=== PATIENT | male | born 1950 | race Caucasian/White ===

== ENCOUNTER → 2020-01-23 14:12 | Outpatient (CLI) | payer OTHER, SELFPAY ==
[2020-01-23 17:00] LABS: Absolute Lymphocyte Count 2.52 X10^3/uL (0.83-4.51); Absolute Neutrophil Count 5.1 X10^3/uL (2.0-7.7); Basophil# 0.05 X10^3/uL; Basophil% 0.6 % (0-1); Eosinophil# 0.18 X10^3/uL; Eosinophils% 2.1 % (0-5); Hematocrit 46.3 % (40-54); Hemoglobin 15.4 g/dL (13.0-16.5); Lymphocyte # 2.52 X10^3/ul (4.0); Mean Corp Hgb Conc 33.3 g/dL (32-36); Mean Corpuscular Hgb 29.2 pg (27.0-32.0); Mean Corpuscular Volume 87.9 fL (80-94); Mean Platelet Vol. 10.1 fl (6.2-12.0); Monocyte# 0.52 X10^3/uL; Monocyte% 6.2 % (0-10); NRBC Flagged by Analyzer 0 % (0-5); Neutrophil # 5.07 X10^3/uL (2.7-7.7); Neutrophil % 60.5 % (47-70); Platelet Count 265 K/mm3 (150-450); RBC Distribution Width CV 12.8 % (11.6-14.6); RBC Distribution Width SD 40.7 fl (35.1-43.9); Red Blood Count 5.27 M/mm3 (4.6-6.2); White Blood Count 8.4 K/mm3 (4.4-11.0)
[2020-01-23 17:12] LABS: Protein, Urine (Random) 7.9 mg/dL (<11.9)
[2020-01-23 17:14] LABS: ALB/GLOB Ratio 1.1 RATIO (0.9-2.4); AST(SGOT) 22 U/L (15-37); Alanine Aminotransfer ALT/SGPT 46 U/L (16-61); Alkaline Phosphatase 57 U/L (45-117); Anion Gap 8 (5-15); BUN 23 mg/dL (7-18); BUN/Creat Ratio 12.8 RATIO (10-20); Calcium,Total 9.5 mg/dL (8.5-10.1); Chloride 104 mmol/L (98-107); EST Glomerular Filtration Rate 40 mL/min (>60); Est Glom Filt Rate - Afr Amer 48 mL/min (>60); Globulin 3.5 g/dL (2.2-4.2); Glucose 240 mg/dL (74-106); Potassium 3.5 mmol/L (3.5-5.1); Protein, Total 7.5 g/dL (6.4-8.2); Sodium Level 137 mmol/L (136-145)
== END ==
PROVIDERS: Visit Provider Family Medicine
DX: E11.9 Type 2 diabetes mellitus without complications (principal); I10 Essential (primary) hypertension; E78.5 Hyperlipidemia, unspecified
CPT/HCPCS: 36415; 80053; 82570; 84156; 85025

== ENCOUNTER → 2020-02-03 13:17 | Outpatient (CLI) | payer OTHER, SELFPAY ==
[2020-02-03 15:57] LABS: Anion Gap 8 (5-15); BUN 18 mg/dL (7-18); BUN/Creat Ratio 11.8 RATIO (10-20); Calcium,Total 9.2 mg/dL (8.5-10.1); Chloride 105 mmol/L (98-107); Creatinine, Serum 1.52 mg/dL (0.70-1.30); EST Glomerular Filtration Rate 49 mL/min (>60); Est Glom Filt Rate - Afr Amer 59 mL/min (>60); Glucose 244 mg/dL (74-106); Potassium 3.9 mmol/L (3.5-5.1); Sodium Level 139 mmol/L (136-145)
== END ==
PROVIDERS: Visit Provider Family Medicine
DX: I10 Essential (primary) hypertension (principal); Z90.5 Acquired absence of kidney
CPT/HCPCS: 36415; 80048

== ENCOUNTER → 2020-04-22 10:16 | Outpatient (CLI) | payer OTHER, SELFPAY ==
[2020-04-22 10:16] VITALS: BMI 41.2
[2020-04-22 12:52] LABS: Anion Gap 9 (5-15); BUN 23 mg/dL (7-18); BUN/Creat Ratio 16.3 RATIO (10-20); Calcium,Total 9.5 mg/dL (8.5-10.1); Chloride 103 mmol/L (98-107); Creatinine, Serum 1.41 mg/dL (0.70-1.30); EST Glomerular Filtration Rate 53 mL/min (>60); Est Glom Filt Rate - Afr Amer 64 mL/min (>60); Glucose 217 mg/dL (74-106); Potassium 3.7 mmol/L (3.5-5.1); Sodium Level 138 mmol/L (136-145)
== END ==
PROVIDERS: PCP Family Medicine; Visit Provider Family Medicine
DX: I10 Essential (primary) hypertension (principal); Z90.5 Acquired absence of kidney
CPT/HCPCS: 36415; 80048

== ENCOUNTER → 2021-12-10 | Outpatient (CLI) | payer OTHER, SELFPAY ==
[2021-12-10 12:10] LABS: Absolute Lymphocyte Count 2.68 X10^3/uL (0.83-4.51); Absolute Neutrophil Count 6.2 X10^3/uL (2.0-7.7); Basophil# 0.05 X10^3/uL; Basophil% 0.5 % (0-1); Eosinophil# 0.29 X10^3/uL; Hematocrit 42.1 % (40-54); Hemoglobin 14.6 g/dL (13.0-16.5); Lymphocyte # 2.68 X10^3/ul (0.83-4.51); Lymphocyte % 27.5 % (19-41); Mean Corp Hgb Conc 34.7 g/dL (32-36); Mean Corpuscular Hgb 29.9 pg (27.0-32.0); Mean Corpuscular Volume 86.1 fL (80-94); Mean Platelet Vol. 9.8 fl (6.2-12.0); Monocyte# 0.49 X10^3/uL; NRBC Flagged by Analyzer 0 % (0-5); Neutrophil # 6.22 X10^3/uL (2.7-7.7); Neutrophil % 63.7 % (47-70); Platelet Count 253 K/mm3 (150-450); RBC Distribution Width CV 12.7 % (11.6-14.6); RBC Distribution Width SD 39.4 fl (35.1-43.9); Red Blood Count 4.89 M/mm3 (4.6-6.2); White Blood Count 9.8 K/mm3 (4.4-11.0)
[2021-12-10 12:20] LABS: ALB/GLOB Ratio 1.1 RATIO (0.9-2.4); AST(SGOT) 24 U/L (15-37); Alanine Aminotransfer ALT/SGPT 35 U/L (16-61); Albumin, Serum 3.9 g/dL (3.2-5.0); Alkaline Phosphatase 56 U/L (45-117); Anion Gap 8 (5-15); BUN 19 mg/dL (7-18); BUN/Creat Ratio 14.6 RATIO (10-20); Calcium,Total 9.6 mg/dL (8.5-10.1); Chloride 101 mmol/L (98-107); Cholesterol 154 mg/dL (200); EST Glomerular Filtration Rate 58 mL/min (>60); Est Glom Filt Rate - Afr Amer 70 mL/min (>60); Globulin 3.5 g/dL (2.2-4.2); Glucose 134 mg/dL (74-106); High Density Lipoprotein 40 mg/dL; Potassium 3.6 mmol/L (3.5-5.1); Protein, Total 7.4 g/dL (6.4-8.2); Sodium Level 137 mmol/L (136-145); Triglycerides 279 mg/dL; Very Low Density Lipoprotein 56 mg/dL (5-40)
== END | disposition home or self-care (01) ==
LOC: BFHLAB 10:04
PROVIDERS: PCP Family Medicine; Visit Provider Family Medicine
DX: E11.9 Type 2 diabetes mellitus without complications (principal); I10 Essential (primary) hypertension; E78.5 Hyperlipidemia, unspecified
CPT/HCPCS: 36415; 80053; 80061; 85025

== ENCOUNTER → 2022-06-09 | Outpatient (CLI) | payer OTHER, SELFPAY ==
[2022-06-09 15:19] LABS: Absolute Lymphocyte Count 2.43 X10^3/uL (0.83-4.51); Absolute Neutrophil Count 3.9 X10^3/uL (2.0-7.7); Basophil# 0.06 X10^3/uL; Basophil% 0.8 % (0-1); Eosinophils% 2.8 % (0-5); Hematocrit 39.8 % (40-54); Lymphocyte # 2.43 X10^3/ul (0.83-4.51); Lymphocyte % 34.4 % (19-41); Mean Corp Hgb Conc 32.7 g/dL (32-36); Mean Corpuscular Hgb 29.5 pg (27.0-32.0); Mean Corpuscular Volume 90.5 fL (80-94); Mean Platelet Vol. 10.2 fl (6.2-12.0); Monocyte# 0.48 X10^3/uL; Monocyte% 6.8 % (0-10); NRBC Flagged by Analyzer 0 % (0-5); Neutrophil # 3.87 X10^3/uL (2.7-7.7); Neutrophil % 54.8 % (47-70); Platelet Count 245 K/mm3 (150-450); RBC Distribution Width CV 13.1 % (11.6-14.6); RBC Distribution Width SD 43.3 fl (35.1-43.9); White Blood Count 7.1 K/mm3 (4.4-11.0)
[2022-06-09 15:39] LABS: ALB/GLOB Ratio 0.9 RATIO (0.9-2.4); AST(SGOT) 31 U/L (15-37); Alanine Aminotransfer ALT/SGPT 16 U/L (16-61); Albumin, Serum 3.8 g/dL (3.2-5.0); Alkaline Phosphatase 46 U/L (45-117); Anion Gap 6 (5-15); BUN 20 mg/dL (7-18); BUN/Creat Ratio 14.4 RATIO (10-20); Calcium,Total 9.1 mg/dL (8.5-10.1); Chloride 104 mmol/L (98-107); Cholesterol 152 mg/dL (200); Creatinine, Serum 1.39 mg/dL (0.70-1.30); EST Glomerular Filtration Rate 54 mL/min (>60); Est Glom Filt Rate - Afr Amer 65 mL/min (>60); Globulin 4.1 g/dL (2.2-4.2); Glucose 152 mg/dL (74-106); High Density Lipoprotein 38 mg/dL; Potassium 3.5 mmol/L (3.5-5.1); Protein, Total 7.9 g/dL (6.4-8.2); Sodium Level 138 mmol/L (136-145); Triglycerides 222 mg/dL; Very Low Density Lipoprotein 44 mg/dL (5-40)
[2022-06-09 15:52] LABS: Microalbumin,Random Urine 75.8 mg/L (NO RANGE EST.); Microalbumin:Creatinine Ratio 39.9 mg/g CRE (<30 mg/g CRE)
== END | disposition home or self-care (01) ==
LOC: BFHLAB 11:42
PROVIDERS: PCP Family Medicine; Referring Provider Family Medicine; Visit Provider Family Medicine
DX: Z00.00 Encounter for general adult medical examination without abnormal findings (principal); E11.9 Type 2 diabetes mellitus without complications; I10 Essential (primary) hypertension
CPT/HCPCS: 36415; 80053; 80061; 82043; 82570; 85025

== ENCOUNTER 2022-07-25 08:20 | Emergency (ER) | payer MEDICARE, SELFPAY ==
[2022-07-25] VITALS (7 sets, daily range): BP systolic 147–189; BP diastolic 67–101; PULSE 60–82; RESP 14–18; TEMP 36.2; O2SAT 94–98; BMI 38.0
--- NOTE | 2022-07-25 08:33 | RAD_ITS ---
STUDY: X-RAY CHEST REASON FOR EXAM: Male, 71 years old. Increasing shortness of breath. Chest heaviness. TECHNIQUE: Single AP portable view of the chest. COMPARISON: None. FINDINGS: EKG electrodes are seen. The lungs are clear and expanded. Scattered calcified granulomas. There is no demonstrated pleural abnormality. There is mild cardiac enlargement. Normal mediastinum and wilberto. Normal visualized pulmonary arteries. There is atherosclerotic calcification of the aortic arch with tortuosity. There are diffuse degenerative changes of the visualized thoracic spine. Normal visualized ribs, clavicles, and shoulders. There is no demonstrated abnormality of the visualized soft tissue structures of the upper abdomen. RAD/Chest 1 View (Portable) IMPRESSION: Mild cardiomegaly. The lungs are clear. Electronically Signed: Zeus Raymond MD at 9:26 EDT ,
--- NOTE | 2022-07-25 08:33 | EKG12_ITS ---
Test Reason : SOB Blood Pressure : / mmHG Vent. Rate : 076 BPM Atrial Rate : 076 BPM P-R Int : 182 ms QRS Dur : 100 ms QT Int : 422 ms P-R-T Axes : 048 -18 053 degrees QTc Int : 474 ms Normal sinus rhythm Inferior infarct , age undetermined Abnormal ECG Confirmed by SOLOMON NG, NAYAN ([id number]), editor greeting card OTILIA AUGUSTE ([id number]) on 07/27/2022 11:36:32 AM Referred By: Confirmed By:NAYAN CARBAJAL MD
--- NOTE | 2022-07-25 08:35 | EDS_ITS ---
HPI History of Present Illness Chief Complaint: Shortness of Breath Narrative Narrative: 71-year-old male who denies significant past medical history such as asthma, COPD, or CHF presents with increasing dyspnea on exertion since Monday of last week. He states that he was working outside, and had to come in because he felt shortness of breath and chest pressure as if someone was laying a hand on his chest. He denies any recent fever or chills. No nausea or vomiting. No diaphoresis. He did have to go outside and only work for 15 minutes, then come in and rest. His states that this is gotten progressively worse since last week. He denies any weight gain or leg swelling. He states that he has past medical history of hypertension, but does not take blood thinners. No DVT or PE risk factors. He feels more short of breath along with chest pressure and tightness. [facility] Medical History Chronic neck and back pain Congenital solitary kidney Diabetes Diarrhea GERD (gastroesophageal reflux disease) HTN (hypertension) Hyperlipidemia SOB (shortness of breath) Home Medications amlodipine 5 mg tablet 5 mg PO DAILY 03/30/20 [History Last Taken Unknown] atorvastatin 20 mg tablet 20 mg PO DAILY 03/30/20 [History Last Taken Unknown] glimepiride 4 mg tablet 4 mg PO BID 03/30/20 [History Last Taken Unknown] hydrochlorothiazide 25 mg tablet 25 mg PO DAILY 03/30/20 [History Last Taken Unknown] losartan 100 mg tablet 100 mg PO DAILY 03/30/20 [History Last Taken Unknown] metformin 500 mg tablet,extended release 24 hr 1,000 mg PO BID 03/30/20 [History Last Taken Unknown] potassium citrate 10 mEq (1,080 mg) tablet,extended release PO 03/30/20 [History Last Taken Unknown] sertraline 50 mg tablet 50 mg PO DAILY 03/30/20 [History Last Taken Unknown] aspirin 81 mg tablet,delayed release (Adult Low Dose Aspirin) 81 mg PO DAILY 06/24/22 [History Last Taken Unknown] carbidopa 50 mg-levodopa 200 mg-entacapone 200 mg tablet 1 tab PO BID 06/24/22 [History Last Taken Unknown] insulin glargine 100 unit/mL (3 mL) subcutaneous pen (Lantus Solostar U-100 Insulin) 42 unit subcut QPM 06/24/22 [History Last Taken Unknown] omeprazole magnesium 20 mg tablet,delayed release (Prilosec OTC) 20 mg PO DAILY 07/25/22 [History Last Taken Unknown] Allergy/AdvReac Type Severity Reaction Status Date / Time No Known Allergies Allergy Verified 07/25/22 08:23 Family History Other Heart disease Surgical History History of colonoscopy Social History Smoking Status: Never smoker alcohol intake: never ROS ROS ED ROS Narrative Constitutional: No fever, no chills. HEENT: No sore throat. No neck pain. No loss of vision. No rhinorrhea. Cardiovascular: Positive chest pressure/nonradiating chest pain. No palpitations. No pedal edema. Respiratory: No cough, positive dyspnea on exertion and shortness of breath. Abdominal: No abdominal pain. No nausea. No vomiting. Genitourinary: No dysuria. No hematuria. Musculoskeletal: No myalgias. No arthralgias. Neurologic: No headaches. No dizziness. No lightheadedness. Skin: No rash. No change in color. Psychiatric: No depression. No anxiety. EXAM Physical Exam Narrative Exam Narrative: Afebrile. Vital signs noted. HEENT: Normocephalic. Atraumatic. PERRL, EOMI. Neck soft and supple. No point tenderness or step off. Cardiovascular: Regular rate and rhythm. No murmurs, rubs, or gallops appreciated. Respiratory: No tachypnea. Lungs clear to auscultation bilaterally. Minich breath sounds bilateral bases. Moving a good amount of air. Speaking in full sentences. Gastrointestinal: Abdomen soft, nontender, with normoactive bowel sounds. No rebound or guarding. Neurological: Awake. Alert. Nonfocal, nonlateralizing. Skin: No rash. Normal color. No pallor. Musculoskeletal: No pedal edema. Full range of motion extremities. Const Vital Signs: 07/25/22 08:21 07/25/22 08:20 07/25/22 08:34 Temperature 97.1 F L Temperature Source Temporal Pulse Rate 82 79 Respiratory Rate 18 14 Respiratory Effort Normal Non-Labored Respiratory Depth Normal Respiratory Pattern Normal Blood Pressure 189/101 H 188/101 H Blood Pressure Mean 130 130 Pulse Ox 97 98 Oxygen Delivery Method Room Air Room Air Room Air 07/25/22 08:44 07/25/22 11:10 Temperature Temperature Source Pulse Rate 73 60 Respiratory Rate 18 17 Respiratory Effort Respiratory Depth Respiratory Pattern Normal Blood Pressure 163/76 H Blood Pressure Mean 105 Pulse Ox 94 Oxygen Delivery Method Room Air MDM MDM MDM Narrative Medical decision making narrative: Comprehensive work-up was pursued. In the differential diagnosis is pneumothorax versus pneumonia versus COPD exacerbation that is undiagnosed, bronchitis, I have low suspicion for pulmonary embolism. He has elevated blood pressure at 188/101 but is come down on the systolic side to 150 without intervention initially. Pulse ox is 98% on room air without oxygen requirement. EKG will be obtained to rule out ischemia. EKG was obtained and interpreted by myself independently which shows normal sinus rhythm at 76 bpm without ectopy or acute ST changes. No STEMI. I reviewed his laboratory work and he has a normal white count of 7.5, hemoglobin stable at 12.8, hematocrit 37.3, platelet count normal at 198. Electrolyte panel shows potassium slightly low at 3.3 which was replaced orally with 40 mEq. BUN slightly elevated 19 with creatinine 1.30. Glucose is appropriately elevated at 144 with a normal anion gap of 6. Initial high-sensitivity troponin is 8 with repeat also being 8 for a delta of 0. Chest x-ray interpreted by myself independently shows no evidence of acute pneumonia or pneumothorax. He is not hypoxic on examination. BNP was also obtained and reviewed and is normal at 33. After aerosolized treatment, he states he feels the same. I do not feel that he needs an albuterol inhaler. He was ambulated here in the emergency department and reportedly has a normal pulse ox. He feels well enough to go home. I am unsure as to the cause of his reported chest pressure and dyspnea on exertion, but it may be air quality index and undiagnosed COPD. At this point in time, he and his would like to be discharged. I feel he can be discharged safely home with follow-up. Return instructions were reviewed. I do not feel he requires observation or admission at this time. Disposition is discharged home in stable condition. History & Record Review Discussion w/independent historian: Patient and Significant other Additional record(s) reviewed:: Prior ED visit Lab Data Attestation: I reviewed the patient's lab results. Labs: Laboratory Results - last 24 hr 07/25/22 07/25/22 07/25/22 08:40 08:40 08:40 WBC 7.5 RBC 4.24 L Hgb 12.8 L Hct 37.3 L MCV 88.0 MCH 30.2 MCHC 34.3 RDW Std Deviation 40.2 RDW Coeff of Bayron 12.7 Plt Count 198 MPV 9.3 Immature Gran % (Auto) 0.300 Neut % (Auto) 61.8 Lymph % (Auto) 29.2 [place] % (Auto) 6.4 Eos % (Auto) 1.9 Baso % (Auto) 0.4 Absolute Neuts (auto) 4.6 Absolute Lymphs (auto) 2.19 Nucleated RBC % 0 Sodium 137 Potassium 3.3 L Chloride 102 Carbon Dioxide 29.0 Anion Gap 6 BUN 19 H Creatinine 1.30 Estim Creat Clear Calc 54.59 Est GFR (MDRD) Af Amer 70 Est GFR (MDRD) Non-Af 58 L BUN/Creatinine Ratio 14.6 Glucose 144 H Calcium 9.0 Troponin I High Sens 8 B-Natriuretic Peptide 33.0 07/25/22 10:50 WBC RBC Hgb Hct MCV MCH MCHC RDW Std Deviation RDW Coeff of Bayron Plt Count MPV Immature Gran % (Auto) Neut % (Auto) Lymph % (Auto) [place] % (Auto) Eos % (Auto) Baso % (Auto) Absolute Neuts (auto) Absolute Lymphs (auto) Nucleated RBC % Sodium Potassium Chloride Carbon Dioxide Anion Gap BUN Creatinine Estim Creat Clear Calc Est GFR (MDRD) Af Amer Est GFR (MDRD) Non-Af BUN/Creatinine Ratio Glucose Calcium Troponin I High Sens 8 B-Natriuretic Peptide Radiography Diagnostic Testing: Clinical Impression(s) from Imaging Studies Chest X-Ray 07/25/22 08:33 IMPRESSION: Mild cardiomegaly. The lungs are clear. Electronically Signed: Zeus Raymond MD at 9:26 EDT , Discharge Plan Triage Chief Complaint: Shortness of Breath ED Provider: Jorge Ruano Dx/Rx/DC Orders Clinical Impression: NAYLOR (dyspnea on exertion), Chest pressure, Hypertension Instructions: ED Chest Pain, Uncertain Cause, ED Dyspnea, ED High Blood Pressure Hypertension Prescriptions: No Action glimepiride 4 mg tablet 4 mg PO BID atorvastatin 20 mg tablet 20 mg PO DAILY metformin 500 mg tablet extended release 24 hr 1,000 mg PO BID sertraline 50 mg tablet 50 mg PO DAILY potassium citrate 10 mEq (1,080 mg) tablet extended release PO losartan 100 mg tablet 100 mg PO DAILY hydrochlorothiazide 25 mg tablet 25 mg PO DAILY amlodipine 5 mg tablet 5 mg PO DAILY aspirin [Adult Low Dose Aspirin] 81 mg tablet,delayed release (DR/EC) 81 mg PO DAILY [id number] 50-200-200 mg tablet 1 tab PO BID insulin glargine [Lantus Solostar U-100 Insulin] 100 unit/mL (3 mL) insulin pen 42 unit subcut QPM omeprazole magnesium [Prilosec OTC] 20 mg Tablet,Delayed Release (Dr/Ec) 20 mg PO DAILY Primary Care Provider: Brianna Israel Referrals: Brianna Israel MD [Primary Care Provider] - 3-5 Days Disposition Disposition: Home, Self Care
--- NOTE | 2022-07-25 08:43 | NURSING ---
NO OLD EKGS
[2022-07-25] MEDS: Ipratropium/Albuterol Sulfate 3 ML AMPUL.NEB INHALATION (08:44)
[2022-07-25 08:58] LABS: Absolute Lymphocyte Count 2.19 X10^3/uL (0.83-4.51); Absolute Neutrophil Count 4.6 X10^3/uL (2.0-7.7); Basophil# 0.03 X10^3/uL; Basophil% 0.4 % (0-1); Eosinophil# 0.14 X10^3/uL; Eosinophils% 1.9 % (0-5); Hematocrit 37.3 % (40-54); Hemoglobin 12.8 g/dL (13.0-16.5); Lymphocyte # 2.19 X10^3/ul (0.83-4.51); Lymphocyte % 29.2 % (19-41); Mean Corp Hgb Conc 34.3 g/dL (32-36); Mean Corpuscular Hgb 30.2 pg (27.0-32.0); Mean Platelet Vol. 9.3 fl (6.2-12.0); Monocyte# 0.48 X10^3/uL; Monocyte% 6.4 % (0-10); NRBC Flagged by Analyzer 0 % (0-5); Neutrophil # 4.63 X10^3/uL (2.7-7.7); Neutrophil % 61.8 % (47-70); Platelet Count 198 K/mm3 (150-450); RBC Distribution Width CV 12.7 % (11.6-14.6); RBC Distribution Width SD 40.2 fl (35.1-43.9); Red Blood Count 4.24 M/mm3 (4.6-6.2); White Blood Count 7.5 K/mm3 (4.4-11.0)
[2022-07-25 09:16] LABS: Anion Gap 6 (5-15); BUN 19 mg/dL (7-18); BUN/Creat Ratio 14.6 RATIO (10-20); Chloride 102 mmol/L (98-107); EST Glomerular Filtration Rate 58 mL/min (>60); Est Glom Filt Rate - Afr Amer 70 mL/min (>60); Estimated Creatinine Clearance 54.59 ml/min; Glucose 144 mg/dL (74-106); Potassium 3.3 mmol/L (3.5-5.1); Sodium Level 137 mmol/L (136-145); Troponin-I HS (w/2H Reflex) 8 pg/mL (3.0-78.0)
[2022-07-25] MEDS: Potassium Chloride Oral Tablet 20 MEQ 40 MEQ PO (09:36)
[2022-07-25 10:55] LABS: Reflex Troponin-HS? (from REC) Y
[2022-07-25 11:23] LABS: Troponin-I HS 8 pg/mL (3.0-78.0)
== END 2022-07-25 12:56 | disposition home or self-care (01) ==
PROVIDERS: Emergency Provider Emergency Medicine; PCP Family Medicine; Visit Provider Emergency Medicine
DX: R06.09 Other forms of dyspnea (principal); E11.9 Type 2 diabetes mellitus without complications; Z79.4 Long term (current) use of insulin; R07.89 Other chest pain; E87.6 Hypokalemia; I10 Essential (primary) hypertension; E78.5 Hyperlipidemia, unspecified; G89.29 Other chronic pain; Z79.82 Long term (current) use of aspirin; Z79.84 Long term (current) use of oral hypoglycemic drugs; Z79.899 Other long term (current) drug therapy
CPT/HCPCS: 71045; 80048; 83880; 84484; 85025; 93005; 94640; 99285

== ENCOUNTER 2022-08-17 10:16 | Day surgery (SDC) | payer MEDICARE, SELFPAY ==
[2022-08-17] VITALS (9 sets, daily range): BP systolic 128–176; BP diastolic 79–101; PULSE 76–91; RESP 14–16; TEMP 36.3–36.6; O2SAT 93–97; BMI 37.9
[2022-08-17] MEDS: Lactated Ringers 1,000 ML 15 ML IV (10:43)
--- NOTE | 2022-08-17 10:50 | HP.PCM_ITS ---
[facility] - General General Date of Admission: 08/17/22 Date of Service: 08/17/22 Chief Complaint: Screening colonoscopy HPI Narrative ZANE GARNETT, is a 71 M who presents today for evaluation of a screening colonoscopy. He does not have a down main. He does not have any chest pain or shortness of breath. He is not having any numbness or weakness. Overall is in fairly good health. He does have a past medical history of hypertension, hy perlipidemia, possible Parkinson's disease, type 2 diabetes. None of those which are causing him a problem at this time. [facility] Medical History (Updated 08/11/22 @ 12:50 by Gayle Contreras) Acute prostatitis Anxiety Arthritis Back pain Cardiology follow-up encounter Chronic neck and back pain Congenital solitary kidney Depression Diarrhea Dietary restriction GERD (gastroesophageal reflux disease) History of echocardiogram History of pain when walking HTN (hypertension) Hyperlipidemia Insulin dependent diabetes mellitus Non-smoker Parkinson's disease Restless legs Shortness of breath on exertion Syncope Wears glasses Wears hearing aid Home Medications amlodipine 5 mg tablet 5 mg PO DAILY 03/30/20 [History Last Taken 08/17/22] atorvastatin 20 mg tablet 20 mg PO DAILY 03/30/20 [History Last Taken 08/16/22] glimepiride 4 mg tablet 4 mg PO BID 03/30/20 [History Last Taken 08/16/22] hydrochlorothiazide 25 mg tablet 25 mg PO DAILY 03/30/20 [History Last Taken 08/16/22] losartan 100 mg tablet 100 mg PO DAILY 03/30/20 [History Last Taken 08/17/22] metformin 500 mg tablet,extended release 24 hr 1,000 mg PO BID 03/30/20 [History Last Taken 08/16/22] potassium citrate 10 mEq (1,080 mg) tablet,extended release 10 meq PO DAILY 03/30/20 [History Last Taken 08/16/22] sertraline 50 mg tablet 50 mg PO DAILY 03/30/20 [History Last Taken 08/16/22] aspirin 81 mg tablet,delayed release (Adult Low Dose Aspirin) 81 mg PO DAILY 06/24/22 [History Last Taken 08/14/22] carbidopa 50 mg-levodopa 200 mg-entacapone 200 mg tablet 1 tab PO BID 06/24/22 [History Last Taken 08/16/22] insulin glargine 100 unit/mL (3 mL) subcutaneous pen (Lantus Solostar U-100 Insulin) 42 unit subcut QPM 06/24/22 [History Last Taken Unknown] omeprazole magnesium 20 mg tablet,delayed release (Prilosec OTC) 20 mg PO DAILY 07/25/22 [History Last Taken 08/16/22] Allergy/AdvReac Type Severity Reaction Status Date / Time No Known Allergies Allergy Verified 08/11/22 12:37 Family History Other Heart disease Surgical History (Updated 08/11/22 @ 12:50 by Gayle Contreras) History of cardiac catheterization History of colonoscopy Hx of vein stripping Social History Smoking Status: Never smoker alcohol intake: never ROS Review of Systems ROS Unobtainable: other Constitutional Constitutional: Denies fatigue, fever(s), poor appetite, weight gain or weight loss ENT HEENT: Denies mouth lesions Cardiovascular Cardiovascular: Denies abdominal bloating, abdominal edema or abdominal pain Respiratory/Chest Respiratory/Chest: Denies change in mental status, change in phlegm color, chest congestion or chest tightness Gastrointestinal Gastrointestinal: Denies belching, bloating, change in bowel habits, change in stool character, chewing difficulty, coffee ground emesis, constipation, cramping, diarrhea, dyspepsia, dysphagia, early satiety, excessive flatus, fecal incontinence, heartburn, hematemesis, hematochezia, hemorrhoids, loose stools, melena, nausea, odynophagia, rectal bleeding, tenesmus, vomiting or weight changes Genitourinary Genitourinary: Denies abdominal discomfort, burning urination or itching Musculoskeletal Musculoskeletal: Reports as per HPI; Denies muscle weakness or myalgias Integumentary Integumentary: Denies jaundice Neurologic Neurologic: Denies lack of coordination or weakness Psychiatric Psychiatric: Denies confusion, depression, memory loss, mood swings, paranoia or suicidal ideation Endocrine Endocrinology: Denies systems reviewed and no addt'l complaints, except as documented Hematologic/Lymphatic Hematologic/Lymphatic: Denies anemia, easy bleeding, easy bruising or lymphadenopathy Allergic/Immunologic Allergic/Immunologic: Denies systems reviewed and no addt'l complaints, except as documented Vital Signs Vital Signs Vital Signs: 08/17/22 10:43 08/17/22 10:43 Temperature 97.8 F Temperature Source Temporal Pulse Rate 91 Respiratory Rate 15 Respiratory Pattern Normal Blood Pressure 176/101 H Blood Pressure Mean 126 Blood Pressure Source Monitor Blood Pressure Position Semi-Fowlers Blood Pressure Location Left Forearm Pulse Ox 96 Oxygen Delivery Method Room Air Weight Weight: 264 lb 8.875 oz Body Mass Index (BMI) 37.9 Physical Exam Const alert General Appearance: cooperative Orientation / Consciousness: oriented to person HEENT hearing grossly normal bilaterally Head and Scalp: normal to inspection Face and Sinus: face symmetric Nose: external nose normal Mouth: oral and palatal mucosa normal Eyes conjunctivae normal General Eye: normal appearance of both eyes Neck full ROM General: normal visual inspection Lymph Lymphatic: no lymphadenopathy noted Chest inspection of chest normal and palpation of chest normal Chest: symmetrical chest wall rise Resp normal respiratory effort Effort and Inspection: able to speak in complete sentences Cardio regular rate GI non-distended Percussion: normal to percussion Rectal Exam: deferred Neuro Speech: speech normal Gait (Neuro): normal gait Assessment & Plan Assessment/Plan (1) Encounter for screening for malignant neoplasm of colon: PLAN: He was explained alternatives, risk, benefits including outstanding bleeding, infection, sepsis, perforation, need for emergent surgery . He he will have an 3.
--- NOTE | 2022-08-17 11:00 | COLBX_PTH ---
PATIENT: ZANE GARNETT LOC: EN U#:[id number] AGE/SX: 71/M ROOM: RE08/17/[address]: Dr. Luís Cohen DO : 1950 BED: DIS: 08/17/2022 SPEC #: [id number] RECD: 08/17/22 13:55 STATUS: RAMÓN LEOGayathri #: [id number] RAE: 08/17/22 11:[address]: Luís Cohen DEPT: SURGICAL PATHOLOGY RECD BY: Javy Wong ENTERED: 08/18/22 08:26 SP TYPE: COLON BX OTHR DR: Dr. Brianna Israel MD Tissues: COLON BIOPSY Procedures: Surgery Specimen Level IV HEADER OPERATION: Colonoscopy - open access (MAC), polypectomy PRE-OP DIAGNOSIS: Screening TISSUE SUBMITTED: Hepatic flexure polyp MICROSCOPIC DIAGNOSIS Colonic polyp at hepatic flexure, biopsy: Fragments of tubular adenoma. AM:juan diego 08/19/2022 MICROSCOPIC DESCRIPTION Slides are reviewed. GROSS DESCRIPTION Received in fixative is one container labeled with the patient's name and designated hepatic flexure polyp. The specimen consists of multiple irregular fragments of light miller soft tissue that in aggregate measure 0.8 x 0.5 x 0.1 cm. The specimen is totally submitted in one cassette. / AM:juan diego 08/18/2022 TC:5 CPT: 25304
[2022-08-17 12:00] LABS: Bedside Glucose 167 mg/dL (74-106)
--- NOTE | 2022-08-17 12:12 | OP.COLON_ITS ---
Patient Name: Nikos Teague Procedure Date: 08/17/2022 10:48 AM Date of : 1950 Age: 71 Procedure: Colonoscopy Indications: Screening for colorectal malignant neoplasm Providers: Luís Cohen DO Referring MD: Luís Cohen DO Medicines: Monitored Anesthesia Care Patient Profile: This is a 71 year old male. Refer to note in patient chart for documentation of history and physical. Last Colonoscopy: date unknown. Unable to locate last colonoscopy report. Complications: No immediate complications. Procedure: Pre-Anesthesia Assessment: - Prior to the procedure, a History and Physical was performed, and patient medications and allergies were reviewed. The risks and benefits of the procedure and the sedation options and risks were discussed with the patient. All questions were answered and informed consent was obtained. Patient identification and proposed procedure were verified by the physician in the pre-procedure area. Mental Status Examination: normal. Prophylactic Antibiotics: The patient does not require prophylactic antibiotics. Prior Anticoagulants: The patient has taken no previous anticoagulant or antiplatelet agents. After reviewing the risks and benefits, the patient was deemed in satisfactory condition to undergo the procedure. The anesthesia plan was to use monitored anesthesia care (MAC). Immediately prior to administration of medications, the patient was re-assessed for adequacy to receive sedatives. The heart rate, respiratory rate, oxygen saturations, blood pressure, adequacy of pulmonary ventilation, and response to care were monitored throughout the procedure. The physical status of the patient was re-assessed after the procedure. After I obtained informed consent, the scope was passed under direct vision. Throughout the procedure, the patient's blood pressure, pulse, and oxygen saturations were monitored continuously. The was introduced through the anus and advanced to the cecum, identified by appendiceal orifice and ileocecal valve. The colonoscopy was performed without difficulty. The patient tolerated the procedure well. The quality of the bowel preparation was adequate. Scope In: 11:46:58 AM Scope Withdrawal Time 0 hours 12 minutes 9 seconds Scope Out: 12:03:20 PM Total Procedure Duration Time 0 hours 16 minutes 22 seconds Findings: The perianal and digital rectal examinations were normal. Three sessile polyps were found in the hepatic flexure. The polyps were 1 to 2 mm in size. These polyps were removed with a hot snare. Resection and retrieval were complete. Verification of patient identification for the specimen was done. Estimated blood loss was minimal. A few small and large-mouthed diverticula were found in the sigmoid colon. Impression: - Three 1 to 2 mm polyps at the hepatic flexure, removed with a hot snare. Resected and retrieved. - Diverticulosis in the sigmoid colon. Recommendation: - Discharge patient to home. - Resume previous diet. - Continue present medications. - Await pathology results. - Repeat colonoscopy in 5 years for surveillance. Procedure Code(s): --- Professional --- 43105, Colonoscopy, flexible; with removal of tumor(s), polyp(s), or other lesion(s) by snare technique CPT copyright 2017 [employer]. All rights reserved. The codes documented in this report are preliminary and upon cambering machine operator review may be revised to meet current compliance requirements. Luís Cohen DO 08/17/2022 12:12:18 PM This report has been signed electronically. Number of Addenda: 0 Note Initiated On: 08/17/2022 10:48 AM
--- NOTE | 2022-08-17 12:12 | OP.CCLET_ITS ---
08/17/2022 Brianna Israel [place] [id number] [place] [address] Re : Colonoscopy procedure for Nikos Teague Dear Dr. Israel This procedure was performed on Wednesday, August 17, 2022. My impressions and recommendations are as follows: Impressions : - Three 1 to 2 mm polyps at the hepatic flexure, removed with a hot snare. Resected and retrieved. - Diverticulosis in the sigmoid colon. Recommendations : - Discharge patient to home. - Resume previous diet. - Continue present medications. - Await pathology results. - Repeat colonoscopy in 5 years for surveillance. My findings are described in the full procedure note, which is enclosed. If I can be of further assistance, please feel free to contact me at . Sincerely, Luís Cohen, 08/17/2022 12:12:18 PM This report has been signed electronically.
== END 2022-08-17 13:15 | disposition home or self-care (01) ==
LOC: EN 10:20 → AC 10:20
PROVIDERS: PCP Family Medicine; Referring Provider Family Medicine; Visit Provider Internal Medicine Gastroenterology
PROC: 0DJD8ZZ Inspection of Lower Intestinal Tract, Via Natural or Artificial Opening Endoscopic (ICD-10-PCS; CPT 45378; principal; 2022-08-17 10:55)
DX: Z12.11 Encounter for screening for malignant neoplasm of colon (principal); G20 Parkinson's disease; E11.9 Type 2 diabetes mellitus without complications; Z79.4 Long term (current) use of insulin; I10 Essential (primary) hypertension; E78.5 Hyperlipidemia, unspecified; K57.30 Diverticulosis of large intestine without perforation or abscess without bleeding; Z79.82 Long term (current) use of aspirin; D12.3 Benign neoplasm of transverse colon; Z79.899 Other long term (current) drug therapy; Z79.84 Long term (current) use of oral hypoglycemic drugs; K21.9 Gastro-esophageal reflux disease without esophagitis
CPT/HCPCS: 45385; 82962; 88305; J7120; J2405

== ENCOUNTER → 2022-08-30 | Outpatient (CLI) | payer MEDICARE, SELFPAY | END | disposition home or self-care (01) | PROVIDERS: PCP Family Medicine; Referring Provider Psychiatry & Neurology Sleep Medicine; Visit Provider Psychiatry & Neurology Sleep Medicine | DX: G47.33 Obstructive sleep apnea (adult) (pediatric) (principal) | CPT/HCPCS: 95811 ==

== ENCOUNTER → 2022-10-13 | Outpatient (CLI) | payer MEDICARE, SELFPAY ==
[2022-10-13 15:29] LABS: Anion Gap 5 (5-15); BUN 16 mg/dL (7-18); BUN/Creat Ratio 11.1 RATIO (10-20); Calcium,Total 8.8 mg/dL (8.5-10.1); Chloride 106 mmol/L (98-107); Creatinine, Serum 1.44 mg/dL (0.70-1.30); EST Glomerular Filtration Rate 51 mL/min (>60); Est Glom Filt Rate - Afr Amer 62 mL/min (>60); Glucose 251 mg/dL (74-106); Magnesium 1.7 mg/dL (1.6-2.6); Potassium 3.5 mmol/L (3.5-5.1); Sodium Level 140 mmol/L (136-145); Thyroid Stim Hormone (TSH) 0.85 uIU/mL (0.358-3.74)
== END | disposition home or self-care (01) ==
LOC: LAB 13:41
PROVIDERS: PCP Family Medicine; Referring Provider Internal Medicine Cardiovascular Disease; Visit Provider Internal Medicine Cardiovascular Disease
DX: I10 Essential (primary) hypertension (principal); R42 Dizziness and giddiness; R06.02 Shortness of breath
CPT/HCPCS: 36415; 80048; 83735; 84443

== ENCOUNTER → 2022-10-28 | Outpatient (CLI) | payer MEDICARE, SELFPAY ==
--- NOTE | 2022-11-01 15:27 | STRESSREP ---
Stress Test Report Date: 10/28/2022 Procedure: Pharmacologic stress nuclear imaging study Indications: Arrhythmia Consent: Per the patient Procedure: The patient underwent pharmacologic (Regadenoson 0.4mg ) evaluation with a peak heart rate of 107 beats per minute (71%predicted maximal heart rate) and a peak blood pressure of 188/88 mmHg. The baseline ECG demonstrated sinus rhythm. The peak pharmacologic ECG demonstrated no ischemic changes. There were no cardiac dysrhythmias pretest, during pharmacologic infusion, or recovery. There was no complaint of chest discomfort during pharmacologic infusion or recovery. The patient was injected with 14.7 millicuries of technetium 99m Cardiolite and subsequently rest SPECT Cardiolite nuclear imaging was obtained in the horizontal long, vertical long, and short axis views. The patient underwent pharmacologic (Regadenoson) evaluation. The patient was injected with 44.8 millicuries of technetium 99m Cardiolite and subsequently stress SPECT Cardiolite nuclear imaging was obtained in the horizontal long, vertical long, and short axis views. A gated Cardiolite study at peak stress was obtained. The examination was stopped secondary to completion of protocol. Rest and stress SPECT Cardiolite nuclear imaging status post realignment, normalization, and attenuation correction demonstrate a very small apical reversible defect of mild intensity. There is end systolic thickening and brightening. The gated Cardiolite study demonstrates myocardial thickening and inward wall motion. The reported LVEF is 78%. Impression: 1. Pharmacologic (Regadenoson) evaluation 2. Peak pharmacologic ECG with no diagnostic ischemic changes. 3. There were no cardiac dysrhythmias pretest, during pharmacologic infusion, or recovery. 5. A very small reversible apical perfusion defect of mild intensity suggestive of small area of mild ischemia.. 6. The gated Cardiolite study reports an LVEF of 78%. This note was generated with [employer] software. It may contain incorrect words, spelling, and punctuation that were not noted in checking the note before signing.
== END | disposition home or self-care (01) ==
PROVIDERS: PCP Family Medicine; Referring Provider Internal Medicine Cardiovascular Disease; Visit Provider Internal Medicine Cardiovascular Disease
DX: R94.31 Abnormal electrocardiogram [ECG] [EKG] (principal); I49.9 Cardiac arrhythmia, unspecified; R42 Dizziness and giddiness; R06.02 Shortness of breath; I10 Essential (primary) hypertension
CPT/HCPCS: 78452; 93017; A9500; A4216; J2785

== ENCOUNTER → 2022-11-09 | Outpatient (CLI) | payer MEDICARE, SELFPAY | END | disposition home or self-care (01) | LOC: PSN 08:46 | PROVIDERS: PCP Family Medicine; Referring Provider Internal Medicine Cardiovascular Disease; Visit Provider Internal Medicine Cardiovascular Disease | DX: R00.2 Palpitations (principal); G20 Parkinson's disease; I47.29 Other ventricular tachycardia; R06.09 Other forms of dyspnea | CPT/HCPCS: 93225; 93226 ==

== ENCOUNTER → 2022-12-07 | Outpatient (CLI) | payer MEDICARE, SELFPAY ==
--- NOTE | 2022-12-07 12:35 | CT_ITS ---
STUDY: CT CHEST WITH CONTRAST REASON FOR EXAM: Male, 72 years old. Mildly abnormal stress, inf ischemia, PVC''s, SOB, family hx CAD. Limited chest OVER READ ONLY RADIATION DOSAGE (If Supplied By Facility): CTDIvol = ( 62.77 ) mGy, DLP = ( 4323.40 ) mGycm TECHNIQUE: Transaxial imaging was performed following intravenous administration of IV 75mL Isovue-370. Individualized dose optimization techniques were used for this CT. COMPARISON: No relevant priors. FINDINGS: CHEST The lungs are normal. There is no demonstrated pleural abnormality. There are calcifications of the coronary arteries. There are small small lymph nodes within the mediastinum, which are normal in size and morphology most compatible with reactive lymph hyperplasia. Normal hilar regions. Normal unenhanced pulmonary arteries. There is atherosclerotic calcification of the aortic arch. Normal osseous structures. Hepatomegaly and fatty infiltration of the liver. Small hiatal hernia. CT/Limited Chest CT Cardiac Only IMPRESSION: Coronary artery calcification. Electronically Signed: Zeus Raymond MD at 15:17 EDT ,
[2022-12-07 12:53] VITALS: BP 154/81; PULSE 73; RESP 18; TEMP 37.1; O2SAT 95; BMI 39.0
[2022-12-07] MEDS: Nitroglycerin SL (ED/IMG/CATH) 0.4 MG TABLET SL (13:11)
[2022-12-07] MEDS: 0.9% Saline Lock 10 ML Syringe IV ×2 (13:12→13:25)
[2022-12-07 13:17] LABS: CREATININE FINGERSTICK 1.9 mg/dL (0.70-1.30)
[2022-12-07 13:24] VITALS: BP 129/59; PULSE 74
[2022-12-07] MEDS: Metoprolol Tartrate 5 MG/5 ML Vial IV (13:24)
[2022-12-07 13:56] VITALS: BP 145/70; PULSE 72; RESP 18
--- NOTE | 2022-12-07 16:52 | CCTA.WCONT ---
CCTA w/Cont Coronary Arteries Date of Study:: 12/07/22 Abnormal stress test. Coronary Calcium Scoring: High-resolution Computed Tomographic imaging of the chest was performed on [12/07/2022], with particular attention paid to the coronary arteries. Intravenous contrast agent was administered per protocol and images reconstructed and displayed. LEFT MAIN CORONARY ARTERY: This arose from the left coronary cusp and bifurcating to left anterior descending artery and left circumflex artery [] LEFT ANTERIOR DESCENDING CORONARY ARTERY: This was a severely calcified vessel especially in the proximal and mid segments. There was a mixture of hard and soft plaque noted with areas in the midsegment suggestive of moderately severe disease. [] LEFT CIRCUMFLEX CORONARY ARTERY: Severely calcified mid circumflex artery is noted arising from the left main coronary artery with areas in the midsegment suggestive of high-grade stenosis [] RIGHT CORONARY ARTERY: Dominant large vessel with moderate to severe calcification noted in the mid segments. Likely moderately severe stenosis noted. CORONARY CALCIUM SCORE:Not Perfomed. Conclusion: Severe calcification noted in the 3 coronary artery territories with moderately severe stenosis noted likely in all vessels.
== END | disposition home or self-care (01) ==
LOC: CT 12:33
PROVIDERS: PCP Family Medicine; Referring Provider Internal Medicine Cardiovascular Disease; Visit Provider Internal Medicine Cardiovascular Disease
DX: R94.39 Abnormal result of other cardiovascular function study (principal); I47.29 Other ventricular tachycardia; E78.5 Hyperlipidemia, unspecified; R06.09 Other forms of dyspnea; I10 Essential (primary) hypertension
CPT/HCPCS: 75574; 76380; 96374; Q9967; A4216

== ENCOUNTER 2022-12-21 12:40 | Observation (INO) | payer MEDICARE, SELFPAY ==
[2022-12-21 12:41] VITALS: BP 126/71; PULSE 66; RESP 16; TEMP 36.3; O2SAT 95; BMI 39.6
--- NOTE | 2022-12-21 13:30 | EKG12_ITS ---
Test Reason : SOB Blood Pressure : / mmHG Vent. Rate : 059 BPM Atrial Rate : 059 BPM P-R Int : 190 ms QRS Dur : 098 ms QT Int : 442 ms P-R-T Axes : 045 -07 075 degrees QTc Int : 437 ms Sinus bradycardia Possible Inferior infarct (cited on or before 25-JUL-2022) Abnormal ECG Confirmed by ULYSSES NG, EWELINA ([id number]), senior technical editor JENNIE SIDHU ([id number]) on 12/26/2022 8:39:38 AM Referred By: Confirmed By:SONY ARORA MD
--- NOTE | 2022-12-21 13:34 | EX.ED.DYSGE1 ---
HPI History of Present Illness Chief Complaint: Shortness of Breath Informant: patient and spouse/S.O. Narrative Narrative: 72-year-old male presenting to the emergency room with multiple complaints. He states that he has been chronically dizzy for weeks and weeks. It is worse today. When asked to describe it is very difficult as he contradicts yes and no questions. When I can get him to finalizes that the room is not spinning that he is more lightheaded. When he walks he does not so much ataxia but lightheadedness. He states that 3 weeks ago he found out through a scan of his heart that he has severe calcium deposits on 3 of his blood vessels of his heart and he is supposed to have a heart cath. He is very frustrated that he has not met with his sheeting puller to discuss these results or talk with them on the phone. He notes that the day after his scan he began to have a rash that started on his right arm and then spread to his whole body. His IV was given in his left arm. His primary care diagnosed him with a viral exanthem. He went back to primary care after a short course of hydrocortisone cream and was prescribed hydroxyzine for the itching he was experiencing. When asked to show me an example of his rash she says here it is everywhere but that he cannot find an example. He notes shortness of breath that is worse with exertion and is not present at rest. He denies any leg swelling or weight loss/gain. New to his medication is nifedipine and increased dose of metoprolol. Though is very difficult to find out what role this has is that his says 1 thing he says another in the timeline of symptoms is confusing. No reported chest pain. [facility] Medical History Acute prostatitis Acute upper respiratory infection Anxiety Arthritis Back pain Cardiology follow-up encounter Chronic neck and back pain Congenital solitary kidney Contact with or suspected exposure to other viral communicable disease Daytime sleepiness Delayed sleep phase syndrome Depression Diabetes Diabetic peripheral neuropathy Diarrhea Dietary restriction NAYLOR (dyspnea on exertion) Dyslipidemia Encounter for screening for malignant neoplasm of colon GERD (gastroesophageal reflux disease) History of echocardiogram History of pain when walking HTN (hypertension) Hyperlipidemia Insulin dependent diabetes mellitus Intermittent palpitations Left knee DJD Lightheadedness Mechanical pain of left knee Non-smoker Nonproliferative diabetic retinopathy of both eyes Nonsustained ventricular tachycardia Obesity DOLORES treated with BiPAP Parkinson disease Parkinson's disease RBD (REM behavioral disorder) Restless legs Shortness of breath on exertion Sleep apnea-like behavior SOB (shortness of breath) Spinal stenosis Syncope Wears glasses Wears hearing aid Home Medications atorvastatin 20 mg tablet 20 mg PO DAILY 03/30/20 [History Last Taken 08/16/22] glimepiride 4 mg tablet 4 mg PO BID 03/30/20 [History Last Taken 08/16/22] hydrochlorothiazide 25 mg tablet 25 mg PO DAILY 03/30/20 [History Last Taken 08/16/22] losartan 100 mg tablet 100 mg PO DAILY 03/30/20 [History Last Taken 08/17/22] metformin 500 mg tablet,extended release 24 hr 1,000 mg PO BID 03/30/20 [History Last Taken 08/16/22] potassium citrate 10 mEq (1,080 mg) tablet,extended release 10 meq PO DAILY 03/30/20 [History Last Taken 08/16/22] sertraline 50 mg tablet 50 mg PO DAILY 03/30/20 [History Last Taken 08/16/22] aspirin 81 mg tablet,delayed release (Adult Low Dose Aspirin) 81 mg PO DAILY 06/24/22 [History Last Taken 08/14/22] carbidopa 50 mg-levodopa 200 mg-entacapone 200 mg tablet 1 tab PO BID 06/24/22 [History Last Taken 08/16/22] insulin glargine 100 unit/mL (3 mL) subcutaneous pen (Lantus Solostar U-100 Insulin) 42 unit subcut QPM 06/24/22 [History Last Taken Unknown] omeprazole magnesium 20 mg tablet,delayed release (Prilosec OTC) 20 mg PO DAILY 07/25/22 [History Last Taken 08/16/22] melatonin 3 mg tablet 3 mg PO QHS 10/06/22 [History Last Taken Unknown] metoprolol tartrate 50 mg tablet 50 mg PO BID This is a dose increase #60 tabs 11/21/22 [Rx Last Taken Unknown] nifedipine 60 mg tablet,extended release 60 mg PO DAILY #30 tabs 11/23/22 [Rx Last Taken Unknown] Allergy/AdvReac Type Severity Reaction Status Date / Time No Known Allergies Allergy Verified 12/21/22 12:43 Family History Son Cancer testicular Brother CAD (coronary artery disease) CABG X3 Heart valve replaced Other Alcoholism Angina pectoris Anxiety Arthritis COPD (chronic obstructive pulmonary disease) CVA (cerebral vascular accident) NAYLOR (dyspnea on exertion) Heart disease Hyperlipidemia Hypertension Lung cancer Myocardial infarction Nonsustained ventricular tachycardia SOB (shortness of breath) Surgical History History of cardiac catheterization (~1994) History of colonoscopy Hx of vein stripping (~1994) Social History Smoking Status: Never smoker alcohol intake: never substance use type: does not use caffeine: No ROS ROS ED Constitutional Constitutional ED: Denies chills, fever(s) or weight loss Eyes Eyes: Denies change in vision or diplopia ENT ENT ED: Denies ear pain, rhinorrhea or sore throat Cardiovascular Cardiovascular: Reports other Details: Lightheadedness ; Denies chest pain, orthopnea, palpitations or racing heartbeat Respiratory/Chest Respiratory/Chest: Reports cough, dyspnea and dyspnea on exertion; Denies orthopnea Gastrointestinal Gastrointestinal: Denies abdominal pain, diarrhea, nausea or vomiting Genitourinary Genitourinary ED: Denies dysuria, hematuria or urinary frequency Musculoskeletal Musculoskeletal: Denies arthralgias or myalgias Integumentary Denies abscess or rash Neurologic Neurologic: Denies headache(s) or weakness Psychiatric Psychiatric: Denies anxiety, depression, suicidal ideation or suicidal thoughts Endocrine Endocrinology: Denies polydipsia, polyphagia or polyuria Allergic/Immunologic Allergic/Immunologic ED: Denies mouth swelling, tongue swelling or urticaria EXAM Physical Exam Const Vital Signs: 12/21/22 12:41 12/21/22 15:11 12/21/22 15:11 Temperature 97.4 F L Temperature Source Temporal Pulse Rate 66 66 Respiratory Rate 16 14 Respiratory Effort Respiratory Depth Respiratory Pattern Blood Pressure 126/71 H 116/77 Blood Pressure [Lying] 129/74 H Blood Pressure [Sitting (for 1 minute prior to obtaining)] 123/77 H Blood Pressure [Standing (for 1 minute prior to obtaining)] 116/77 Blood Pressure Mean 89 90 Blood Pressure Mean [Lying] 92 Blood Pressure Mean [Sitting (for 1 minute prior to obtaining)] 92 Blood Pressure Mean [Standing (for 1 minute prior to obtaining)] 90 Pulse Ox 95 96 Oxygen Delivery Method Room Air Room Air 12/21/22 15:13 Temperature Temperature Source Pulse Rate Respiratory Rate Respiratory Effort Normal Non-Labored Respiratory Depth Normal Respiratory Pattern Normal Blood Pressure Blood Pressure [Lying] Blood Pressure [Sitting (for 1 minute prior to obtaining)] Blood Pressure [Standing (for 1 minute prior to obtaining)] Blood Pressure Mean Blood Pressure Mean [Lying] Blood Pressure Mean [Sitting (for 1 minute prior to obtaining)] Blood Pressure Mean [Standing (for 1 minute prior to obtaining)] Pulse Ox Oxygen Delivery Method Positive well nourished, well developed and obese General Appearance ED: well developed Nutritional Appearance: obese HEENT Reports normocephalic, head/scalp atraumatic and moist mucous membranes Eyes PERRL and EOMs intact bilaterally Neck no lymphadenopathy, supple and no JVD Resp normal respiratory effort and clear to auscultation bilaterally Cardio regular rate, regular rhythm and no murmurs GI normal to inspection, nondistended, normoactive bowel sounds and non-tender Palpation: soft Back/Spine no CVA tenderness and normal ROM Extremity normal to inspection General Extremety ED: Negative for edema General Extremity: Negative for edema Neuro oriented x3 and CN's II-XII intact bilaterally Sensorium / Orientation: alert Motor Exam: strength 5/5 throughout Psych mental status grossly normal Mood & Affect: Negative for depressed or tearful Skin no rashes or lesions noted and no wounds MDM MDM MDM Narrative Medical decision making narrative: My independent interpretation of the chest x-ray is no acute process Basic blood work showed a hemoglobin 12.4 platelet count of 221. Creatinine was 1.58. Troponin normal. D-dimer within normal limits. Patient is remained in a sinus rhythm to a sinus bradycardia. Orthostatics are negative. When the patient ambulated his heart rate dropped into the 30s and he was symptomatic with his lightheadedness. We attempted to ambulate him again with telemetry but he did not become bradycardic. His heart rate emmanuel into the 80s. He was not lightheaded at that time. I spoke with cardiology. We reviewed the patient's recent cardiology visit Holter monitor stress test report and coronary CTA. Plan will be to admit the patient into the hospital and plan for further cardiac evaluation possible heart catheterization History & Record Review Additional record(s) reviewed:: Prior outpatient record and Prior labs Lab Data Attestation: I reviewed the patient's lab results. Labs: Laboratory Results - last 24 hr 12/21/22 12/21/22 14:12 14:13 WBC 8.1 RBC 4.17 L Hgb 12.4 L Hct 36.9 L MCV 88.5 MCH 29.7 MCHC 33.6 RDW Std Deviation 42.0 RDW Coeff of [place] 13.1 Plt Count 221 MPV 9.3 Immature Gran % (Auto) 1.000 H Neut % (Auto) 62.6 Lymph % (Auto) 24.5 [place] % (Auto) 7.6 Eos % (Auto) 3.4 Baso % (Auto) 0.9 Absolute Neuts (auto) 5.1 Absolute Lymphs (auto) 1.99 Nucleated RBC % 0 D-Dimer Quant (PE/DVT) 0.46 Sodium 137 Potassium 3.5 Chloride 103 Carbon Dioxide 28.0 Anion Gap 6 BUN 23 H Creatinine 1.58 H Estim Creat Clear Calc 44.28 Est GFR (MDRD) Af Amer 56 L Est GFR (MDRD) Non-Af 46 L BUN/Creatinine Ratio 14.6 Glucose 197 H Calcium 8.4 L Troponin I High Sens 8 Radiography Diagnostic Testing: Clinical Impression(s) from Imaging Studies Chest X-Ray 12/21/22 14:20 IMPRESSION: Mild cardiomegaly. The lungs are clear. Stable examination. Electronically Signed: Zeus Raymond MD at 14:39 EST , EKG Initial EKG: Attestation: I personally reviewed and interpreted this EKG as follows: Comments: Sinus bradycardia with a ventricular rate of 59 bpm. Discharge Plan Dx/Rx/DC Orders Clinical Impression: Light-headedness, HTN (hypertension), Hyperlipidemia, Nonsustained ventricular tachycardia, Elevated coronary artery calcium score, Bradycardia, Diabetes Disposition Disposition: Acute Care [facility]
--- NOTE | 2022-12-21 14:20 | RAD_ITS ---
STUDY: X-RAY CHEST REASON FOR EXAM: Male, 72 years old. Cough and shortness of breath. TECHNIQUE: Single AP portable view of the chest. COMPARISON: Comparison is made with prior study dated July 25, 2022. FINDINGS: EKG electrodes are seen. Stable mild elevation of the right hemidiaphragm. There is no demonstrated pleural abnormality. There is mild cardiac enlargement. Normal mediastinum and wilberto. Normal visualized pulmonary arteries. There is atherosclerotic calcification of the aortic arch with tortuosity. Normal visualized thoracic spine. Normal visualized ribs, clavicles, and shoulders. There is no demonstrated abnormality of the visualized soft tissue structures of the upper abdomen. RAD/Chest 1 View (Portable) IMPRESSION: Mild cardiomegaly. The lungs are clear. Stable examination. Electronically Signed: Zeus Raymond MD at 14:39 EST ,
[2022-12-21 14:24] LABS: Absolute Lymphocyte Count 1.99 X10^3/uL (0.83-4.51); Absolute Neutrophil Count 5.1 X10^3/uL (2.0-7.7); Basophil# 0.07 X10^3/uL; Basophil% 0.9 % (0-1); Eosinophil# 0.28 X10^3/uL; Eosinophils% 3.4 % (0-5); Hematocrit 36.9 % (40-54); Hemoglobin 12.4 g/dL (13.0-16.5); Lymphocyte # 1.99 X10^3/ul (0.83-4.51); Lymphocyte % 24.5 % (19-41); Mean Corp Hgb Conc 33.6 g/dL (32-36); Mean Corpuscular Hgb 29.7 pg (27.0-32.0); Mean Corpuscular Volume 88.5 fL (80-94); Mean Platelet Vol. 9.3 fl (6.2-12.0); Monocyte# 0.62 X10^3/uL; Monocyte% 7.6 % (0-10); NRBC Flagged by Analyzer 0 % (0-5); Neutrophil # 5.08 X10^3/uL (2.7-7.7); Neutrophil % 62.6 % (47-70); Platelet Count 221 K/mm3 (150-450); RBC Distribution Width CV 13.1 % (11.6-14.6); Red Blood Count 4.17 M/mm3 (4.6-6.2); White Blood Count 8.1 K/mm3 (4.4-11.0)
[2022-12-21 14:32] LABS: D-Dimer Quantitative (DVT/PE) 0.46 FEU/ug/m (0.27-0.49)
[2022-12-21 14:35] LABS: Anion Gap 6 (5-15); BUN 23 mg/dL (7-18); BUN/Creat Ratio 14.6 RATIO (10-20); Calcium,Total 8.4 mg/dL (8.5-10.1); Chloride 103 mmol/L (98-107); Creatinine, Serum 1.58 mg/dL (0.70-1.30); EST Glomerular Filtration Rate 46 mL/min (>60); Est Glom Filt Rate - Afr Amer 56 mL/min (>60); Estimated Creatinine Clearance 44.28 ml/min; Glucose 197 mg/dL (74-106); Potassium 3.5 mmol/L (3.5-5.1); Sodium Level 137 mmol/L (136-145); Troponin-I HS 8 pg/mL (3.0-78.0)
[2022-12-21 15:11] VITALS: BP 116/77; BP 123/77; BP 129/74; PULSE 66; RESP 14; O2SAT 96
--- NOTE | 2022-12-21 15:46 | ED.RN ---
patient ambulated per Dr. Carrion request with groundwater monitoring technician. Patient ambulated without difficulty patients groundwater monitoring technician remained the same with no change in heart rhythm
--- NOTE | 2022-12-21 16:02 | PCM.HP.STD ---
HPI - General General Date of Admission: 12/21/22 HPI Narrative ZANE GARNETT, is a 72 M who presents to the hospital with increasing shortness of breath and lightheadedness mostly with exertion. This started a couple of months ago when he was seeing his neurologist for a new diagnosis of Parkinson's disease and they felt that they should look at a cardiac source he did have a 14-day event monitor at the end of July into August that showed about a 9 beat run of V. tach and then he had an echo at the end of July with an EF of 55% and grade 1 diastolic dysfunction. He also had a CTA of his coronary arteries which showed severe calcification in all 3 territories. He was scheduled for heart cath on 01/02/2023 however he states that he has been getting much more short of breath and more lightheaded. In the ER initial troponin was 8 with a normal D-dimer and creatinine appears at baseline. He is on metoprolol and while here in the ER it was noticed that he became severely bradycardic down to the 30s with ambulation however he was ambulated with a portable campus monitor a second time to be able to catch the heart rhythm at that time and it did not occur his heart rate went from the 60s up to the 80s with ambulation so this case was discussed with cardiology who felt that it would be appropriate to bring him into the hospital for observation and a heart cath in the morning. [facility] Medical History Acute prostatitis Acute upper respiratory infection Anxiety Arthritis Back pain Cardiology follow-up encounter Chronic neck and back pain Congenital solitary kidney Contact with or suspected exposure to other viral communicable disease Daytime sleepiness Delayed sleep phase syndrome Depression Diabetes Diabetic peripheral neuropathy Diarrhea Dietary restriction NAYLOR (dyspnea on exertion) Dyslipidemia Encounter for screening for malignant neoplasm of colon GERD (gastroesophageal reflux disease) History of echocardiogram History of pain when walking HTN (hypertension) Hyperlipidemia Insulin dependent diabetes mellitus Intermittent palpitations Left knee DJD Lightheadedness Mechanical pain of left knee Non-smoker Nonproliferative diabetic retinopathy of both eyes Nonsustained ventricular tachycardia Obesity DOLORES treated with BiPAP Parkinson disease Parkinson's disease RBD (REM behavioral disorder) Restless legs Shortness of breath on exertion Sleep apnea-like behavior SOB (shortness of breath) Spinal stenosis Syncope Wears glasses Wears hearing aid Home Medications atorvastatin 20 mg tablet 20 mg PO DAILY 03/30/20 [History Last Taken 12/21/22] glimepiride 4 mg tablet 4 mg PO BID 03/30/20 [History Last Taken 12/21/22] hydrochlorothiazide 25 mg tablet 25 mg PO DAILY 03/30/20 [History Last Taken 12/21/22] losartan 100 mg tablet 100 mg PO DAILY 03/30/20 [History Last Taken 12/21/22] metformin 500 mg tablet,extended release 24 hr 1,000 mg PO BID 03/30/20 [History Last Taken 12/21/22] potassium citrate 10 mEq (1,080 mg) tablet,extended release 10 meq PO DAILY 03/30/20 [History Last Taken 12/21/22] sertraline 50 mg tablet 50 mg PO DAILY 03/30/20 [History Last Taken 12/20/22] aspirin 81 mg tablet,delayed release (Adult Low Dose Aspirin) 81 mg PO DAILY 06/24/22 [History Last Taken 12/21/22] insulin glargine 100 unit/mL (3 mL) subcutaneous pen (Lantus Solostar U-100 Insulin) 42 unit subcut QPM 06/24/22 [History Last Taken 12/20/22] omeprazole magnesium 20 mg tablet,delayed release (Prilosec OTC) 20 mg PO DAILY 07/25/22 [History Last Taken 12/21/22] melatonin 3 mg tablet 3 mg PO QHS 10/06/22 [History Last Taken 12/20/22] metoprolol tartrate 50 mg tablet 50 mg PO BID This is a dose increase #60 tabs 11/21/22 [Rx Last Taken 12/21/22] nifedipine 60 mg tablet,extended release 60 mg PO DAILY #30 tabs 11/23/22 [Rx Last Taken 12/21/22] carbidopa ER 50 mg-levodopa 200 mg tablet,extended release 1.5 tab PO BID 12/21/22 [History Last Taken 12/20/22] Allergy/AdvReac Type Severity Reaction Status Date / Time No Known Allergies Allergy Verified 12/21/22 12:43 Family History Son Cancer testicular Brother CAD (coronary artery disease) CABG X3 Heart valve replaced Other Alcoholism Angina pectoris Anxiety Arthritis COPD (chronic obstructive pulmonary disease) CVA (cerebral vascular accident) NAYLOR (dyspnea on exertion) Heart disease Hyperlipidemia Hypertension Lung cancer Myocardial infarction Nonsustained ventricular tachycardia SOB (shortness of breath) Surgical History History of cardiac catheterization (~1994) History of colonoscopy Hx of vein stripping (~1994) Social History Smoking Status: Never smoker alcohol intake: never substance use type: does not use caffeine: No ROS Constitutional Constitutional: Denies chills, fatigue, fever(s) or malaise Eyes Eyes: Denies blurry vision ENT HEENT: Denies headache(s) or nasal discharge Cardiovascular Cardiovascular: Reports lightheadedness; Denies chest pain, dyspnea on exertion or syncope Respiratory/Chest Respiratory/Chest: Reports shortness of breath with exertion; Denies cough or shortness of breath at rest Gastrointestinal Gastrointestinal: Denies constipation, diarrhea, nausea or vomiting Genitourinary Genitourinary: Denies dysuria Neurologic Neurologic: Denies focal weakness, numbness or tremor(s) Psychiatric Psychiatric: Denies anxiety or depression Vital Signs Vital Signs Vital Signs: 12/21/22 12:41 12/21/22 15:11 12/21/22 15:11 Temperature 97.4 F L Temperature Source Temporal Pulse Rate 66 66 Respiratory Rate 16 14 Respiratory Effort Respiratory Depth Respiratory Pattern Blood Pressure 126/71 H 116/77 Blood Pressure [Lying] 129/74 H Blood Pressure [Sitting (for 1 minute prior to obtaining)] 123/77 H Blood Pressure [Standing (for 1 minute prior to obtaining)] 116/77 Blood Pressure Mean 89 90 Blood Pressure Mean [Lying] 92 Blood Pressure Mean [Sitting (for 1 minute prior to obtaining)] 92 Blood Pressure Mean [Standing (for 1 minute prior to obtaining)] 90 Pulse Ox 95 96 Oxygen Delivery Method Room Air Room Air 12/21/22 15:13 Temperature Temperature Source Pulse Rate Respiratory Rate Respiratory Effort Normal Non-Labored Respiratory Depth Normal Respiratory Pattern Normal Blood Pressure Blood Pressure [Lying] Blood Pressure [Sitting (for 1 minute prior to obtaining)] Blood Pressure [Standing (for 1 minute prior to obtaining)] Blood Pressure Mean Blood Pressure Mean [Lying] Blood Pressure Mean [Sitting (for 1 minute prior to obtaining)] Blood Pressure Mean [Standing (for 1 minute prior to obtaining)] Pulse Ox Oxygen Delivery Method Weight Weight: 276 lb 6 oz Body Mass Index (BMI) 39.6 Physical Exam Narrative General: Alert, Oriented x3, Cooperative, No apparent distress HEENT: Atraumatic, PERRLA, EOMI, Normocephalic Oral: Moist Mucosa Neck: Supple, No JVD Lungs: Diminished, Normal air movement, No rhonchi, No wheeze, No rales Cardiovascular: Bradycardic, Regular Rhythm, Normal S1, Normal S2, No murmurs Abdomen: Soft, Non Tender, Non-Distended, No Hepato-splenomegaly Extremities: No edema, Capillary Refill Less than 3 Seconds Skin: No rashes, No breakdown Musculoskeletal: No Tenderness to Palpation of Joints or Extremities Neurological: Cranial nerves II-XII grossly intact, Motor Exam 5/5 strength throughout, Sensory exam intact to light touch and pain Psych/Mental Status: Normal Affect, Appropriate Results Lab / Micro Data 12/21/22 14:12 12/21/22 14:13 Labs: Laboratory Results - last 24 hr 12/21/22 14:12: WBC 8.1, RBC 4.17 L, Hgb 12.4 L, Hct 36.9 L, MCV 88.5, MCH 29.7, MCHC 33.6, RDW Std Deviation 42.0, RDW Coeff of [place]ron 13.1, Plt Count 221, MPV 9.3, Immature Gran % (Auto) 1.000 H, Neut % (Auto) 62.6, Lymph % (Auto) 24.5, [place] % (Auto) 7.6, Eos % (Auto) 3.4, Baso % (Auto) 0.9, Absolute Neuts (auto) 5.1, Absolute Lymphs (auto) 1.99, Nucleated RBC % 0 12/21/22 14:13: D-Dimer Quant (PE/DVT) 0.46, Sodium 137, Potassium 3.5, Chloride 103, Carbon Dioxide 28.0, Anion Gap 6, BUN 23 H, Creatinine 1.58 H, Estim Creat Clear Calc 44.28, Est GFR (MDRD) Af Amer 56 L, Est GFR (MDRD) Non-Af 46 L, BUN/Creatinine Ratio 14.6, Glucose 197 H, Calcium 8.4 L, Troponin I High Sens 8 Radiology Impression Chest X-Ray 12/21/22 14:20 IMPRESSION: Mild cardiomegaly. The lungs are clear. Stable examination. Electronically Signed: Zeus Raymond MD at 14:39 EST , Assessment & Plan Assessment/Plan (1) Bradycardia: (2) Light-headedness: (3) Elevated coronary artery calcium score: PLAN: Plan 1. HTN/HLD/severe coronary artery calcification with bradycardia and lightheadedness ? We will consult cardiology for heart cath in the morning ? We will resume his home blood pressure medications ? We will monitor make adjustments as necessary ? We will obtain serial troponins ? She had a recent echo with an EF of 55% and grade 1 diastolic dysfunction at the end of July so will not repeat 2. DM 2 ? We will hold his home metformin and glimepiride and place him on sliding scale insulin ? Accu-Cheks ACHS ? We will monitor make adjustments as necessary ? Can resume his home Lantus 3. Parkinson's disease ? Recent diagnosis ? Continue with his home Sinemet 4. GERD ? Stable ? Continue with PPI 5. Anxiety/depression ? Stable ? Continue with Zoloft DVT: Ambulation 76 minutes was spent on direct patient care, including documentation as well as chart review and collaboration with colleagues Charges/Coding Visit Charges Inpatient E&M: 70195 Init Hosp L3
--- NOTE | 2022-12-21 16:05 | NURSING ---
124 KOTSONIS LIGHTHEADNESS INTERMITTENT BRADYCARDIA
[2022-12-21 16:23] VITALS: BP 151/79; PULSE 63; RESP 15; O2SAT 96
[2022-12-21 17:00] VITALS: BP 134/76; PULSE 64; RESP 18; TEMP 36.6; O2SAT 97
[2022-12-21 17:03] VITALS: BMI 39.1
[2022-12-21 21:25] LABS: Troponin-I HS 8 pg/mL (3.0-78.0)
[2022-12-21 22:02] LABS: Bedside Glucose 127 mg/dL (74-106)
[2022-12-21] MEDS: Insulin Glargine-YFGN 100 UNIT/ML Pen 42 UNIT SC (22:02)
[2022-12-21] MEDS: CARBIDOPA/LEVODOPA CR 50/200 Tablet PO (22:03)
[2022-12-21] MEDS: Atorvastatin Calcium 20 MG Tablet PO (22:07)
[2022-12-21 22:10] VITALS: BP 171/88; PULSE 74
[2022-12-21] MEDS: Metoprolol Tartrate 50 MG Tablet PO (22:10)
[2022-12-21 23:00] VITALS: BP 171/88; PULSE 73; RESP 16; TEMP 36.9; O2SAT 98
[2022-12-22] VITALS (9 sets, daily range): BP systolic 130–150; BP diastolic 76–85; PULSE 60–64; RESP 12–20; TEMP 36.7–36.8; O2SAT 92–95
[2022-12-22 05:12] LABS: Absolute Lymphocyte Count 2.24 X10^3/uL (0.83-4.51); Absolute Neutrophil Count 4.4 X10^3/uL (2.0-7.7); Basophil# 0.07 X10^3/uL; Basophil% 0.9 % (0-1); Eosinophil# 0.28 X10^3/uL; Eosinophils% 3.6 % (0-5); Hematocrit 36.5 % (40-54); Lymphocyte # 2.24 X10^3/ul (0.83-4.51); Lymphocyte % 28.8 % (19-41); Mean Corp Hgb Conc 32.9 g/dL (32-36); Mean Corpuscular Hgb 28.8 pg (27.0-32.0); Mean Corpuscular Volume 87.5 fL (80-94); Mean Platelet Vol. 9.5 fl (6.2-12.0); Monocyte# 0.69 X10^3/uL; Monocyte% 8.9 % (0-10); NRBC Flagged by Analyzer 0 % (0-5); Neutrophil # 4.42 X10^3/uL (2.7-7.7); Neutrophil % 56.6 % (47-70); Platelet Count 212 K/mm3 (150-450); RBC Distribution Width CV 13.1 % (11.6-14.6); RBC Distribution Width SD 41.1 fl (35.1-43.9); Red Blood Count 4.17 M/mm3 (4.6-6.2); White Blood Count 7.8 K/mm3 (4.4-11.0)
[2022-12-22 05:42] LABS: Anion Gap 9 (5-15); BUN 29 mg/dL (7-18); BUN/Creat Ratio 21.5 RATIO (10-20); Calcium,Total 8.5 mg/dL (8.5-10.1); Chloride 103 mmol/L (98-107); Creatinine, Serum 1.35 mg/dL (0.70-1.30); EST Glomerular Filtration Rate 55 mL/min (>60); Est Glom Filt Rate - Afr Amer 67 mL/min (>60); Estimated Creatinine Clearance 51.82 ml/min; Glucose 140 mg/dL (74-106); Potassium 3.1 mmol/L (3.5-5.1); Sodium Level 140 mmol/L (136-145)
--- NOTE | 2022-12-22 05:55 | EKG12_ITS ---
Test Reason : AM EKG Blood Pressure : / mmHG Vent. Rate : 057 BPM Atrial Rate : 057 BPM P-R Int : 192 ms QRS Dur : 104 ms QT Int : 478 ms P-R-T Axes : 038 -10 070 degrees QTc Int : 465 ms Sinus bradycardia Nonspecific T wave abnormality Prolonged QT Abnormal ECG When compared with ECG of 21-DEC-2022 12:49, MANUAL COMPARISON REQUIRED, DATA IS UNCONFIRMED Confirmed by ULYSSES NG, EWELINA ([id number]), advertising editor OTILIA AUGUSTE ([id number]) on 12/26/2022 10:58:12 AM Referred By: Confirmed By:SONY ARORA MD
[2022-12-22] MEDS: CARBIDOPA/LEVODOPA CR 50/200 Tablet PO (08:18)
[2022-12-22] MEDS: Aspirin E.C. 81 MG Tablet PO (08:18)
[2022-12-22] MEDS: Metoprolol Tartrate 50 MG Tablet PO (08:19)
[2022-12-22] MEDS: Losartan Potassium 100 MG Tablet PO (08:19)
[2022-12-22] MEDS: NIFEdipine 60 MG Tablet PO (08:20)
[2022-12-22 09:30] LABS: Bedside Glucose 111 mg/dL (74-106)
[2022-12-22 12:24] LABS: Bedside Glucose 133 mg/dL (74-106)
--- NOTE | 2022-12-22 12:38 | PCM.CONS.C ---
Assessment & Plan Assessment/Plan (1) Light-headedness: PLAN: Patient's creatinine was a little bit elevated upon presentation and is better now. Symptoms orthostatic by history. Could be related to patient's Parkinson's. So far no clear cardiac etiology for lightheadedness has been identified. The reported low heart rate on pulse ox could be due to PACs or PVCs when the patient was walking at that time. Unfortunately we do not have telemetry documentation of significant bradycardia. Patient was having dizziness upon getting up and going to the bathroom after being admitted to the PCU. No arrhythmias noted during that time. (2) Abnormal stress test: PLAN: We will proceed with coronary angiography. Risks and benefits including risk of renal failure stroke explained to the patient and family in detail. Patient wishes to proceed and understands the risks and benefits. HPI Consult Data Date of Consult: 12/22/22 HPI Narrative Reason for Consultation: Dizziness HPI Narrative: ZANE GARNETT, is a 72 M who presents with dizziness mostly on getting up from a lying or sitting position and on walking. It was more significant yesterday and a little better today. Patient has been having dizziness upon getting up and going to the bathroom after admission to the PCU. Telemetry revealed no significant arrhythmias that could explain the dizziness. In the emergency room when patient was walking around with a pulse ox apparently the pulse ox read his heart rate in the 30s. When this was reattempted with telemetry monitoring he did not have dizziness and his heart rate went up to the 80s. Patient was seen as an outpatient by Dr. Kennedy for coronary calcification and an abnormal stress test and was in the process of getting coronary angiography scheduled. He had Holter monitoring which revealed no significant prolonged SVT, V. tach or pauses. He had 1 episode of dizziness which did not correlate with any arrhythmias. He had a 2D echo as an outpatient which was unremarkable as well. ON LICENSE OF [facility] Medical History Acute prostatitis Acute upper respiratory infection Anxiety Arthritis Back pain Cardiology follow-up encounter Chronic neck and back pain Congenital solitary kidney Contact with or suspected exposure to other viral communicable disease Daytime sleepiness Delayed sleep phase syndrome Depression Diabetes Diabetic peripheral neuropathy Diarrhea Dietary restriction NAYLOR (dyspnea on exertion) Dyslipidemia Encounter for screening for malignant neoplasm of colon GERD (gastroesophageal reflux disease) History of echocardiogram History of pain when walking HTN (hypertension) Hyperlipidemia Insulin dependent diabetes mellitus Intermittent palpitations Left knee DJD Lightheadedness Mechanical pain of left knee Non-smoker Nonproliferative diabetic retinopathy of both eyes Nonsustained ventricular tachycardia Obesity DOLORES treated with BiPAP Parkinson disease Parkinson's disease RBD (REM behavioral disorder) Restless legs Shortness of breath on exertion Sleep apnea-like behavior SOB (shortness of breath) Spinal stenosis Syncope Wears glasses Wears hearing aid Home Medications atorvastatin 20 mg tablet 20 mg PO DAILY 03/30/20 [History Last Taken 12/21/22] glimepiride 4 mg tablet 4 mg PO BID 03/30/20 [History Last Taken 12/21/22] hydrochlorothiazide 25 mg tablet 25 mg PO DAILY 03/30/20 [History Last Taken 12/21/22] losartan 100 mg tablet 100 mg PO DAILY 03/30/20 [History Last Taken 12/21/22] metformin 500 mg tablet,extended release 24 hr 1,000 mg PO BID 03/30/20 [History Last Taken 12/21/22] potassium citrate 10 mEq (1,080 mg) tablet,extended release 10 meq PO DAILY 03/30/20 [History Last Taken 12/21/22] sertraline 50 mg tablet 50 mg PO DAILY 03/30/20 [History Last Taken 12/20/22] aspirin 81 mg tablet,delayed release (Adult Low Dose Aspirin) 81 mg PO DAILY 06/24/22 [History Last Taken 12/21/22] insulin glargine 100 unit/mL (3 mL) subcutaneous pen (Lantus Solostar U-100 Insulin) 42 unit subcut QPM 06/24/22 [History Last Taken 12/20/22] omeprazole magnesium 20 mg tablet,delayed release (Prilosec OTC) 20 mg PO DAILY 07/25/22 [History Last Taken 12/21/22] melatonin 3 mg tablet 3 mg PO QHS 10/06/22 [History Last Taken 12/20/22] metoprolol tartrate 50 mg tablet 50 mg PO BID This is a dose increase #60 tabs 11/21/22 [Rx Last Taken 12/21/22] nifedipine 60 mg tablet,extended release 60 mg PO DAILY #30 tabs 11/23/22 [Rx Last Taken 12/21/22] carbidopa ER 50 mg-levodopa 200 mg tablet,extended release 1.5 tab PO BID 12/21/22 [History Last Taken 12/20/22] Allergy/AdvReac Type Severity Reaction Status Date / Time Iodinated Contrast Media Allergy rash Verified 12/22/22 12:23 Family History Son Cancer testicular Brother CAD (coronary artery disease) CABG X3 Heart valve replaced Other Alcoholism Angina pectoris Anxiety Arthritis COPD (chronic obstructive pulmonary disease) CVA (cerebral vascular accident) NAYLOR (dyspnea on exertion) Heart disease Hyperlipidemia Hypertension Lung cancer Myocardial infarction Nonsustained ventricular tachycardia SOB (shortness of breath) Surgical History History of cardiac catheterization (~1994) History of colonoscopy Hx of vein stripping (~1994) Social History Smoking Status: Never smoker alcohol intake: never substance use type: does not use caffeine: No Physical Exam Const alert and oriented x3 HEENT normocephalic Eyes no scleral icterus Resp normal respiratory effort Cardio regular rate Psych mental status grossly normal Risk Stratification Risk Stratification Applicable: No Charges/Coding Visit Charges Inpatient E&M: 93121 Init Hosp L2 Objective Data Vital Signs: Vital Signs Temp Pulse Resp BP Pulse Ox O2 Del Method 98.0 F 62 18 149/80 H 95 Room Air 12/22/22 11:00 12/22/22 11:00 12/22/22 11:00 12/22/22 11:00 12/22/22 11:00 12/22/22 11:00 Oxygen Delivery Method Room Air Weight: 272 lb 11.389 oz Body Mass Index (BMI) 39.1 Intake & Output: Intake and Output for Last 24 Hours 12/20/22 12/21/22 12/22/22 23:59 23:59 23:59 Intake Total 300 / 330 30 / 30 Output Total 0 / 0 Balance 300 / 330 30 / 30 Lab / Micro Data 12/22/22 04:21 12/22/22 04:21 Labs: Laboratory Results - last 24 hr 12/21/22 14:12: WBC 8.1, RBC 4.17 L, Hgb 12.4 L, Hct 36.9 L, MCV 88.5, MCH 29.7, MCHC 33.6, RDW Std Deviation 42.0, RDW Coeff of [place] 13.1, Plt Count 221, MPV 9.3, Immature Gran % (Auto) 1.000 H, Neut % (Auto) 62.6, Lymph % (Auto) 24.5, [place] % (Auto) 7.6, Eos % (Auto) 3.4, Baso % (Auto) 0.9, Absolute Neuts (auto) 5.1, Absolute Lymphs (auto) 1.99, Nucleated RBC % 0 12/21/22 14:13: D-Dimer Quant (PE/DVT) 0.46, Sodium 137, Potassium 3.5, Chloride 103, Carbon Dioxide 28.0, Anion Gap 6, BUN 23 H, Creatinine 1.58 H, Estim Creat Clear Calc 44.28, Est GFR (MDRD) Af Amer 56 L, Est GFR (MDRD) Non-Af 46 L, BUN/Creatinine Ratio 14.6, Glucose 197 H, Calcium 8.4 L, Troponin I High Sens 8 12/21/22 20:30: Troponin I High Sens 8 12/21/22 21:39: POC Glucose 127 H 12/22/22 04:21: WBC 7.8, RBC 4.17 L, Hgb 12.0 L, Hct 36.5 L, MCV 87.5, MCH 28.8, MCHC 32.9, RDW Std Deviation 41.1, RDW Coeff of [place] 13.1, Plt Count 212, MPV 9.5, Immature Gran % (Auto) 1.200 H, Neut % (Auto) 56.6, Lymph % (Auto) 28.8, [place] % (Auto) 8.9, Eos % (Auto) 3.6, Baso % (Auto) 0.9, Absolute Neuts (auto) 4.4, Absolute Lymphs (auto) 2.24, Nucleated RBC % 0, Sodium 140, Potassium 3.1 L, Chloride 103, Carbon Dioxide 28.0, Anion Gap 9, BUN 29 H, Creatinine 1.35 H, Estim Creat Clear Calc 51.82, Est GFR (MDRD) Af Amer 67, Est GFR (MDRD) Non-Af 55 L, BUN/Creatinine Ratio 21.5 H, Glucose 140 H, Calcium 8.5 12/22/22 08:16: POC Glucose 111 H 12/22/22 12:04: POC Glucose 133 H Cardiology Labs/Tests 12/21/22 14:12: WBC 8.1, RBC 4.17 L, Hgb 12.4 L, Hct 36.9 L, MCV 88.5, MCH 29.7, MCHC 33.6, Plt Count 221, MPV 9.3, Immature Gran % (Auto) 1.000 H, Neut % (Auto) 62.6, Lymph % (Auto) 24.5, [place] % (Auto) 7.6, Eos % (Auto) 3.4, Baso % (Auto) 0.9, Absolute Neuts (auto) 5.1, Nucleated RBC % 0 12/21/22 14:13: D-Dimer Quant (PE/DVT) 0.46, Sodium 137, Potassium 3.5, Chloride 103, Carbon Dioxide 28.0, Anion Gap 6, BUN 23 H, Creatinine 1.58 H, Est GFR (MDRD) Af Amer 56 L, Est GFR (MDRD) Non-Af 46 L, BUN/Creatinine Ratio 14.6, Glucose 197 H, Calcium 8.4 L 12/22/22 04:21: WBC 7.8, RBC 4.17 L, Hgb 12.0 L, Hct 36.5 L, MCV 87.5, MCH 28.8, MCHC 32.9, Plt Count 212, MPV 9.5, Immature Gran % (Auto) 1.200 H, Neut % (Auto) 56.6, Lymph % (Auto) 28.8, [place] % (Auto) 8.9, Eos % (Auto) 3.6, Baso % (Auto) 0.9, Absolute Neuts (auto) 4.4, Nucleated RBC % 0, Sodium 140, Potassium 3.1 L, Chloride 103, Carbon Dioxide 28.0, Anion Gap 9, BUN 29 H, Creatinine 1.35 H, Est GFR (MDRD) Af Amer 67, Est GFR (MDRD) Non-Af 55 L, BUN/Creatinine Ratio 21.5 H, Glucose 140 H, Calcium 8.5 Rhythm: EKG: ECHO: Stress Test: Cardiac Cath: PCI: CT Surgery: Holter monitor: EPS: PPM: CXR: Chest CT Scan: Radiography Diagnostic Testing: Radiology Impression Chest X-Ray 12/21/22 14:20 IMPRESSION: Mild cardiomegaly. The lungs are clear. Stable examination. Electronically Signed: Zeus Raymond MD at 14:39 EST ,
[2022-12-22] MEDS: Sertraline 50 MG Tablet PO (14:22)
[2022-12-22] MEDS: hydroCHLOROthiazide 25 MG Tablet PO (14:22)
[2022-12-22] MEDS: 0.9% Normal Saline (1000mL) 1,000 ML 150 ML IV (14:39)
[2022-12-22] MEDS: Pantoprazole Sodium 20 MG Tablet PO (14:39)
--- NOTE | 2022-12-22 15:20 | DCINST_ITS ---
Discharge Instructions Diet Discharge Diet: No restrictions Activity Discharge Activity: Return to Normal Activity Weight Bearing Status: Full weight bearing Follow Up Care Test Results: Test results from this visit will be discussed in further detail at your follow- up appointment, if applicable. Discharge Plan Admission Admit Date/Time: 12/21/22 16:50 Primary Reason for Your Visit: bradycardia Attending Provider: John Pyle Primary Care Provider: Brianna Israel Consulting Providers: Shanna Us; Piero Otero Discharge Orders/Prescriptions Prescriptions: New nifedipine 30 mg tablet extended release 30 mg PO DAILY Qty: 30 0RF Continued glimepiride 4 mg tablet 4 mg PO BID atorvastatin 20 mg tablet 20 mg PO DAILY metformin 500 mg tablet extended release 24 hr 1,000 mg PO BID sertraline 50 mg tablet 50 mg PO DAILY potassium citrate 10 mEq (1,080 mg) tablet extended release 10 meq PO DAILY losartan 100 mg tablet 100 mg PO DAILY hydrochlorothiazide 25 mg tablet 25 mg PO DAILY aspirin [Adult Low Dose Aspirin] 81 mg tablet,delayed release (DR/EC) 81 mg PO DAILY insulin glargine [Lantus Solostar U-100 Insulin] 100 unit/mL (3 mL) insulin pen 42 unit subcut QPM melatonin 3 mg tablet 3 mg PO QHS omeprazole magnesium [Prilosec OTC] 20 mg Tablet,Delayed Release (Dr/Ec) 20 mg PO DAILY carbidopa-levodopa 50-200 mg tablet extended release 1.5 tab PO BID Changed metoprolol tartrate 50 mg tablet 25 mg PO BID Qty: 60 11RF Discontinued nifedipine 60 mg tablet extended release 60 mg PO DAILY Qty: 30 11RF Referrals / Follow Up: Brianna Israel MD [Primary Care Provider] - Within 2 Weeks Disposition Disposition (needs filled in before D/C Order can be placed): Home, Self Care
--- NOTE | 2022-12-22 15:27 | PCM.DC.SUM ---
Providers Date of Admission: 12/21/22 Date of Discharge: 12/22/22 Primary Care Physician: Dr. Brianna Israel MD Consultations 12/21/22 16:56 Consult: Cardiology Routine Consulting Provider: Shanna Us Reason for Consult: Heart cath am EMERGENT Consult: No MD Notified: Yes Date Notified: 12/21/22 Time Notified: 16:52 Method of Notification: ED Physician Initiated Reason For Visit: LIGHTHEADEDNESS, INTERMITTENT BRADYCARDIA Diagnosis Discharge Diagnosis (1) Light-headedness: Status: Acute Code(s): R42 - Dizziness and giddiness (2) Abnormal stress test: Status: Acute Code(s): R94.39 - Abnormal result of other cardiovascular function study Plan 1. Symptomatic bradycardia-secondary to patient medication #2 essential hypertension #3 type 2 diabetes #4 Parkinson's disease #5 GERD #6 hyperlipidemia #7 chronic depression #8 nonocclusive coronary artery disease Medications at Discharge Home Medications atorvastatin 20 mg tablet 20 mg PO DAILY cholesterol 03/30/20 glimepiride 4 mg tablet 4 mg PO BID diabetes 03/30/20 hydrochlorothiazide 25 mg tablet 25 mg PO DAILY diuretic 03/30/20 losartan 100 mg tablet 100 mg PO DAILY blood pressure 03/30/20 metformin 500 mg tablet,extended release 24 hr 1,000 mg PO BID diabetes 03/30/20 potassium citrate 10 mEq (1,080 mg) tablet,extended release 10 meq PO DAILY supplement 03/30/20 sertraline 50 mg tablet 50 mg PO DAILY mental health 03/30/20 aspirin 81 mg tablet,delayed release (Adult Low Dose Aspirin) 81 mg PO DAILY heart health 06/24/22 insulin glargine 100 unit/mL (3 mL) subcutaneous pen (Lantus Solostar U-100 Insulin) 42 unit subcut QPM diabetes 06/24/22 omeprazole magnesium 20 mg tablet,delayed release (Prilosec OTC) 20 mg PO DAILY reflux 07/25/22 melatonin 3 mg tablet 3 mg PO QHS sleep 10/06/22 carbidopa ER 50 mg-levodopa 200 mg tablet,extended release 1.5 tab PO BID parkinsons 12/21/22 metoprolol tartrate 50 mg tablet 25 mg (1/2 x 50 mg) PO BID This is a dose increase #60 tabs 12/22/22 nifedipine 30 mg tablet,extended release 30 mg PO DAILY #30 tabs 12/22/22 Hospital Course Operations None Procedures Cardiac catheterization Summary of Care Provided Minutes Spent on Discharge: 30 Hospital Course: This 72-year-old white male was seen in the emergency room at [facility] with complaints of chronic dizziness x2 weeks which was worse on the day of presentation to the ER. Patient stated that he had an outpatient heart scan which showed calcium deposits in 3 of his blood vessels, patient had an outpatient stress test that was abnormal, and patient was scheduled to have a cardiac catheterization. Work-up in the emergency room included chest x-ray which was unremarkable, CBC showed hemoglobin of 12.4, creatinine was elevated at 1.58, D-dimer was normal. Patient was in sinus rhythm with sinus bradycardia, orthostatics were negative, when the patient ambulated his heart rate dropped into the 30s and he was symptomatic with lightheadedness, another attempt was made to ambulate the patient but he did not become bradycardic. Cardiology was contacted, patient had a recent Holter monitor which showed no evidence of malignant arrhythmias. It was felt the patient should be placed in the hospital and undergo cardiac catheterization. Patient was placed in observation status on PCU, he underwent a cardiac catheterization on 12/22/2022 which showed nonocclusive coronary disease. It was recommended that the patient's nifedipine and metoprolol be decreased. On 12/22/2022, patient was seen and examined: On examination he appeared in good health and spirits. Vital signs as documented. Skin warm and dry and without overt rashes. Neck without JVD, neck was supple, trachea midline, thyroid was normal. Lungs clear bilaterally, normal air movement was noted. Heart exam notable for regular rhythm, normal sounds and absence of murmurs, rubs or gallops. Abdomen unremarkable and without evidence of organomegaly, masses, or abdominal aortic enlargement. Bowel sounds are present, abdomen is not distended. Extremities nonedematous, no cyanosis was noted, no clubbing was noted. Neuro: Cranial nerves II through XII are grossly intact, no focal motor deficits were noted, sensation to light touch and pinprick intact, motor exam 5/5 throughout. Psych: Patient is alert and oriented x3, he does not appear anxious or depressed, he does not appear agitated. On 12/22/2022, patient was seen and examined and felt to be in stable condition for discharge home. Weight / BMI Weight Weight: 123.7 kg Body Mass Index (BMI) 39.1 ABG / Lab / Microbiology Data 12/22/22 04:21 12/22/22 04:21 Laboratory: Laboratory Results - last 24 hr 12/21/22 20:30: Troponin I High Sens 8 12/21/22 21:39: POC Glucose 127 H 12/22/22 04:21: WBC 7.8, RBC 4.17 L, Hgb 12.0 L, Hct 36.5 L, MCV 87.5, MCH 28.8, MCHC 32.9, RDW Std Deviation 41.1, RDW Coeff of [place] 13.1, Plt Count 212, MPV 9.5, Immature Gran % (Auto) 1.200 H, Neut % (Auto) 56.6, Lymph % (Auto) 28.8, [place] % (Auto) 8.9, Eos % (Auto) 3.6, Baso % (Auto) 0.9, Absolute Neuts (auto) 4.4, Absolute Lymphs (auto) 2.24, Nucleated RBC % 0, Sodium 140, Potassium 3.1 L, Chloride 103, Carbon Dioxide 28.0, Anion Gap 9, BUN 29 H, Creatinine 1.35 H, Estim Creat Clear Calc 51.82, Est GFR (MDRD) Af Amer 67, Est GFR (MDRD) Non-Af 55 L, BUN/Creatinine Ratio 21.5 H, Glucose 140 H, Calcium 8.5 12/22/22 08:16: POC Glucose 111 H 12/22/22 12:04: POC Glucose 133 H D/C Instructions Discharge Diet: No restrictions Weight Bearing Status: Full weight bearing Meaningful Use Info Meaningful Use Diagnoses (Choose all that apply): None applicable Discharge Plan Admission Admit Date/Time: 12/21/22 16:50 Primary Reason for Your Visit: bradycardia Attending Provider: John Pyle Primary Care Provider: Brianna Israel Consulting Providers: Shanna Us; Piero Otero Discharge Orders/Prescriptions Prescriptions: New nifedipine 30 mg tablet extended release 30 mg PO DAILY Qty: 30 0RF Continued glimepiride 4 mg tablet 4 mg PO BID atorvastatin 20 mg tablet 20 mg PO DAILY metformin 500 mg tablet extended release 24 hr 1,000 mg PO BID sertraline 50 mg tablet 50 mg PO DAILY potassium citrate 10 mEq (1,080 mg) tablet extended release 10 meq PO DAILY losartan 100 mg tablet 100 mg PO DAILY hydrochlorothiazide 25 mg tablet 25 mg PO DAILY aspirin [Adult Low Dose Aspirin] 81 mg tablet,delayed release (DR/EC) 81 mg PO DAILY insulin glargine [Lantus Solostar U-100 Insulin] 100 unit/mL (3 mL) insulin pen 42 unit subcut QPM melatonin 3 mg tablet 3 mg PO QHS omeprazole magnesium [Prilosec OTC] 20 mg Tablet,Delayed Release (Dr/Ec) 20 mg PO DAILY carbidopa-levodopa 50-200 mg tablet extended release 1.5 tab PO BID Changed metoprolol tartrate 50 mg tablet 25 mg PO BID Qty: 60 11RF Discontinued nifedipine 60 mg tablet extended release 60 mg PO DAILY Qty: 30 11RF Referrals / Follow Up: Brianna Israel MD [Primary Care Provider] - Within 2 Weeks Disposition Disposition (needs filled in before D/C Order can be placed): Home, Self Care Charges/Coding Visit Charges Inpatient E&M: 83247 Disch Hosp
--- NOTE | 2022-12-22 16:12 | CASEMGMT ---
Patient has order for discharge. RN CM in to discuss needs at discharge. Patient denies needs at discharge. Patient had no further questions or concerns.
--- NOTE | 2023-01-11 12:19 | CL.D_ITS ---
Patient Name: ZANE GARNETT Study Date: 12/22/2022 Performing: Liane Us MD Ht: 70 inches 177.8 cm : 1950 Wt: 273.1 lbs 123.7 kg Age: 72 Gender: male BSA: 2.38 PROCEDURE(S) PERFORMED DC02-(70916)LHC/COR IC10-([id number])FFR, CORONARY OR GRAFT, INITIAL VESSEL IC10-([id number])FFR, CORONARY OR GRAFT, INITIAL VESSEL CLINICAL PROFILE AND INDICATIONS Heart Failure: None CAD Presentations: Other: Dizzness, Abnormal Stress test CONCLUSIONS CAD as described RECOMMENDATIONS Medical therapy DESCRIPTION OF PROCEDURE The patient arrived to the procedure lab. The risks and benefits of the procedure as well as a full description of our services here and current unavailability of surgical backup were fully explained to the patient and/or their significant other prior to the catheterization. The Timeout was completed, verifying the correct patient and procedure. The patient's procedural site was prepped and draped in the usual fashion. Local anesthetic was given subcutaneously to right radial region with Lidocaine 2%. Using a modified Seldinger technique, arterial access was obtained via the right radial artery, a 6Fr sheath was inserted. Left Coronary Artery selective angiography was performed in multiple views using a 5 Fr. JL3.5 catheter. Right Coronary Artery selective angiography was then performed in multiple views using a 5 Fr. JR 4 catheter.The arterial sheath was pulled and a TR Band was applied for hemostasis w/ 15ml air CORONARY ANGIOGRAPHY DOMINANCE: Right Dominant LEFT MAIN: Mild luminal irregularities LEFT ANTERIOR DESCENDING ARTERY: PROX LAD: 60 % Stenosis, iFR in the LAD is 0.92 CIRCUMFLEX ARTERY: Mild luminal irregularities RIGHT CORONARY ARTERY: MID RCA: 60 % Stenosis, iFR in the RCA is 0.95 COMPLICATIONS No Complications PROCEDURE MEDICATIONS Versed 1 mg IV Fentanyl 50 mcg IV Oxygen: 2 L/min via nasal cannula Benadryl 50 mg IV @ 12/22/2022 12:46:36 Heparin given IA 12/22/2022 13:08:08 Potassium Chloride 40 mEq PO 12/22/2022 12:46:22 Solu-medrol 125 mg IV 12/22/2022 12:46:30 SUMMARY OF HEMODYNAMIC DATA Time AIR REST ECG 12:44:01 LV 139/9, 14 13:10:57 LV 135/10, 13 13:11:06 LVp 132/6, 12 13:11:12 AOp 133/83 (105) 13:11:19 AO 134/83 (105) SA 13:11:20 Signed By Liane Us MD On 01/11/2023 12:18:16 Liane Us MD
== END 2022-12-22 15:27 | disposition home or self-care (01) ==
LOC: ED 15:46 → PCU 16:12
PROVIDERS: Admitting Provider Family Medicine; Emergency Provider Emergency Medicine; PCP Family Medicine; Visit Provider Internal Medicine
DX: R42 Dizziness and giddiness (principal); E11.42 Type 2 diabetes mellitus with diabetic polyneuropathy; I47.29 Other ventricular tachycardia; Z79.4 Long term (current) use of insulin; R94.39 Abnormal result of other cardiovascular function study; R06.02 Shortness of breath; E78.5 Hyperlipidemia, unspecified; K21.9 Gastro-esophageal reflux disease without esophagitis; G20.A1 Parkinson's disease without dyskinesia, without mention of fluctuations; I10 Essential (primary) hypertension; Z79.899 Other long term (current) drug therapy; Z79.84 Long term (current) use of oral hypoglycemic drugs; Z79.82 Long term (current) use of aspirin; F32.A Depression, unspecified; I25.10 Atherosclerotic heart disease of native coronary artery without angina pectoris; R00.1 Bradycardia, unspecified; R94.31 Abnormal electrocardiogram [ECG] [EKG]; F41.9 Anxiety disorder, unspecified
CPT/HCPCS: 36415; 71045; 80048; 82962; 84484; 85025; 85379; 93005; 93454; 93571; 96360; 96361; 99152; 99153; 99221; 99285; J7030; J7040; Q9967; A4216; C1769; C1887; C1894; G0378

== ENCOUNTER → 2023-02-03 | Outpatient (CLI) | payer MEDICARE, SELFPAY ==
--- NOTE | 2023-02-03 16:20 | MRI_ITS ---
STUDY: MRI ORBITS WITHOUT CONTRAST REASON FOR EXAM: Male, 72 years old. ORBITS DIPLOPIA TECHNIQUE: Standardized multiplanar fat and water weighted pulse sequences were obtained. COMPARISON: None. FINDINGS: Normal bilateral globes. Normal bilateral optic nerve sheath complexes and optic nerves. Normal bilateral intraconal and extraconal spaces. Normal bilateral extraocular muscles. Normal optic chiasm and post-chiasmatic tracts. Normal sella turcica, pituitary gland, infundibular stalk, and hypothalamus. Normal bilateral cavernous sinuses. Normal tectal plate and pineal gland. Normal flow voids within the major intracranial circulation suggesting patency by spin echo criteria. There is moderate cerebral atrophy with widening of the extra-axial spaces and ventricular dilatation. There are multiple white matter hyperintensities, distributed throughout the deep white matter tracts of the cerebral hemispheres, consistent with moderate chronic white matter ischemic changes. Normal bilateral basal ganglia. Normal thalami. There is no extra-axial fluid accumulation. Normal midbrain, court and medulla. Normal cerebellum. Normal basal cisterns. MRI/Brain without Contrast IMPRESSION: Normal unenhanced MRI of the orbits. Electronically Signed: Ag Perez MD at 22:34 EST ,
[2023-02-03 17:42] LABS: Absolute Lymphocyte Count 2.73 X10^3/uL (0.83-4.51); Absolute Neutrophil Count 5.9 X10^3/uL (2.0-7.7); Basophil# 0.06 X10^3/uL; Basophil% 0.6 % (0-1); Eosinophil# 0.14 X10^3/uL; Eosinophils% 1.5 % (0-5); Hematocrit 39.9 % (40-54); Hemoglobin 13.4 g/dL (13.0-16.5); Lymphocyte # 2.73 X10^3/ul (0.83-4.51); Lymphocyte % 28.9 % (19-41); Mean Corp Hgb Conc 33.6 g/dL (32-36); Mean Corpuscular Hgb 29.3 pg (27.0-32.0); Mean Corpuscular Volume 87.1 fL (80-94); Mean Platelet Vol. 9.2 fl (6.2-12.0); Monocyte# 0.57 X10^3/uL; NRBC Flagged by Analyzer 0 % (0-5); Neutrophil # 5.88 X10^3/uL (2.7-7.7); Neutrophil % 62.3 % (47-70); Platelet Count 257 K/mm3 (150-450); RBC Distribution Width CV 13.4 % (11.6-14.6); RBC Distribution Width SD 41.8 fl (35.1-43.9); Red Blood Count 4.58 M/mm3 (4.6-6.2); White Blood Count 9.5 K/mm3 (4.4-11.0)
[2023-02-03 18:09] LABS: Anion Gap 5 (5-15); BUN 20 mg/dL (7-18); BUN/Creat Ratio 12.1 RATIO (10-20); Calcium,Total 9.5 mg/dL (8.5-10.1); Chloride 105 mmol/L (98-107); Creatinine, Serum 1.65 mg/dL (0.70-1.30); EST Glomerular Filtration Rate 44 mL/min (>60); Est Glom Filt Rate - Afr Amer 53 mL/min (>60); Glucose 201 mg/dL (74-106); Potassium 4.2 mmol/L (3.5-5.1); Sodium Level 141 mmol/L (136-145)
== END | disposition home or self-care (01) ==
PROVIDERS: Nurse Practitioner Gerontology; PCP Family Medicine; Referring Provider Ophthalmology; Visit Provider Ophthalmology
DX: R94.39 Abnormal result of other cardiovascular function study (principal); H53.2 Diplopia
CPT/HCPCS: 36415; 70551; 80048; 85025

== ENCOUNTER → 2023-03-09 | Outpatient (CLI) | payer MEDICARE, SELFPAY ==
--- OUTSIDE RECORDS SUMMARY | 2023-03-09 09:59 | XMS RPT_ITS | CCD ---
Author Name Unknown Address [address] [place] [address] Organization [facility] Care Team Providers Care Recordist Name Role Phone Unavailable Primary Care Provider UnavailBrianna Singh MD Primary Care Provider ZANE PATEL JR Referring Unavailable BRIANNA ISRAEL Primary Care Unavailable ZANE PATEL JR Attending Unavailable ZANE PATEL JR Attending Unavailable ZANE PATEL JR Referring Unavailable ZANE PATEL JR Attending Unavailable BRIANNA ISRAEL Primary Care Unavailable ZAEN PATEL JR Attending Unavailable BRIANNA ISRAEL Primary Care Unavailable CELINE HUSAIN Referring Unavailable BRIANNA ISRAEL Primary Care Unavailable CELINE HUSAIN Referring Unavailable BRIANNA ISRAEL Primary Care Unavailable CELINE HUSAIN Attending Unavailable BRIANNA ISRAEL Referring Unavailable BRIANNA ISRAEL Primary Care Unavailable ZANE PATEL JR Referring Unavailable Medications Current Medications Medication Drug Class(es) Dates Sig (Normalized) Sig (Original) CPAP/BIPAP/OTHER (5 sources) Start: 09-06-2022 End: 01-21-2050 CPAP/BIPAP/OTHER Auto bilevel PAP set at IPAP max 20, EPAP min 8 and PS 4 cmH2O with humidification. Lifetime supplies. 1 Each 0 09/06/2022 01/21/2050 Active Completed/Discontinued Medications Medication Drug Class(es) Dates Sig (Normalized) Sig (Original) amLODIPine 5 mg oral tablet (12 sources) Dihydropyridine Calcium Channel Chasity Start: 02-10-2022 take 1 tablet by mouth once daily amLODIPine (NORVASC) 5 mg tablet Take 5 mg by mouth once daily. 0 02/10/2022 Active Problems Active Problems Problem Classification Problem Date Documented Da te Episodic/Chronic Other lower respiratory disease (4 sources) Dyspnea; Translations: [Shortness of breath] Episodic Other lower respiratory disease (2 sources) Shortness of breath; Translations: [SOB (shortness of breath)] Onset: 08-11-2022 Episodic Other nervous system disorders (2 sources) Sleep-wake schedule disorder, delayed phase type; Translations: [Circadian rhythm sleep disorder, delayed sleep phase type] Chronic Other nutritional; endocrine; and metabolic disorders (1 source) Obesity; Translations: [Obesity, unspecified] Chronic Other nutritional; endocrine; and metabolic disorders (1 source) Obesity caused by energy imbalance; Translations: [Other obesity due to excess calories] 10-10-2022 Chronic Parkinson`s disease (6 sources) Parkinson's disease; Translations: [Parkinson's disease] Onset: 03-16-2022 Chronic Residual codes; unclassified (4 sources) REM sleep behavior disorder; Translations: [REM sleep behavior disorder] Chronic Residual codes; unclassified (1 source) Behavior finding; Translations: [Other sleep apnea] Chronic Residual codes; unclassified (2 sources) Obstructive sleep apnea syndrome; Translations: [Obstructive sleep apnea (adult) (pediatric)] 08-26-2022 Chronic Residual codes; unclassified (1 source) Other sleep apnea; Translations: [Sleep apnea-like behavior] Onset: 08-17-2022 Chronic Past or Other Problems Problem Classification Problem Date Documented Da te Episodic/Chronic Coma; stupor; and brain damage (2 sources) Daytime somnolence; Translations: [Somnolence] Onset: 08-17-2022 Episodic Conditions associated with dizziness or vertigo (2 sources) Lightheadedness; Translations: [Dizziness and giddiness] Onset: 08-11-2022 Episodic Results Test Name Value Interpretation Reference Range Facil ity Vital Signs Date Time Vital Sign Value Performing Clinician Roxie perez 11-28-2022 15:25-0400 Body weight 124.29 kg Zane Patel Jr., MD Work Phone: [facility] 11-28-2022 15:25-0400 Diastolic blood pressure 82 mm[Hg] Zane Patel Jr., MD Work Phone: [facility] 11-28-2022 15:25-0400 Heart rate 67 /min Zane Patel Jr., MD Work Phone: [facility] 11-28-2022 15:25-0400 Respiratory rate 18 /min Zane Patel Jr., MD Work Phone: [facility] 11-28-2022 15:25-0400 SaO2% (BldA) [Mass fraction] 96 % Zane Patel Jr., MD Work Phone: [facility] 11-28-2022 15:25-0400 Systolic blood pressure 132 mm[Hg] Zane Patel Jr., MD Work Phone: [facility] 10-10-2022 08:39-0400 Body weight 124.29 kg Celine Husain MD Work Phone: [facility] 08-08-2022 16:40-0400 Body temperature 97.3 [degF] Zane Patel Jr., MD Work Phone: [facility] 08-08-2022 16:40-0400 Body weight 122.02 kg Zane Patel Jr., MD Work Phone: [facility] 08-08-2022 16:40-0400 Diastolic blood pressure 91 mm[Hg] Zane Patel Jr., MD Work Phone: [facility] 08-08-2022 16:40-0400 Heart rate 90 /min Zane Patel Jr., MD Work Phone: [facility] 08-08-2022 16:40-0400 Respiratory rate 16 /min Zane Patel Jr., MD Work Phone: [facility] 08-08-2022 16:40-0400 SaO2% (BldA) [Mass fraction] 96 % Zane Patel Jr., MD Work Phone: [facility] 08-08-2022 16:40-0400 Systolic blood pressure 143 mm[Hg] Zane Patel Jr., MD Work Phone: [facility] 04-18-2022 15:30-0500 Body temperature 97.9 [degF] Zane Patel Jr., MD Work Phone: [facility] 04-18-2022 15:30-0500 Body weight 122.2 kg Zane Patel Jr., MD Work Phone: [facility] 04-18-2022 15:30-0500 Diastolic blood pressure 89 mm[Hg] Zane Patel Jr., MD Work Phone: [facility] 04-18-2022 15:30-0500 Heart rate 108 /min Zane Patel Jr., MD Work Phone: [facility] 04-18-2022 15:30-0500 Respiratory rate 18 /min Zane Patel Jr., MD Work Phone: [facility] 04-18-2022 15:30-0500 SaO2% (BldA) [Mass fraction] 96 % Zane Patel Jr., MD Work Phone: [facility] 04-18-2022 15:30-0500 Systolic blood pressure 141 mm[Hg] Zane Patel Jr., MD Work Phone: [facility] 03-02-2022 08:06-0500 Body height 177.8 cm Zane Patel Jr., MD Work Phone: [facility] 03-02-2022 08:06-0500 Body weight 122.47 kg Zane Patel Jr., MD Work Phone: [facility] 03-02-2022 08:06-0500 Diastolic blood pressure 78 mm[Hg] Zane Patel Jr., MD Work Phone: [facility] 03-02-2022 08:06-0500 Heart rate 78 /min Zane Patel Jr., MD Work Phone: [facility] 03-02-2022 08:06-0500 SaO2% (BldA) [Mass fraction] 96 % Zane Patel Jr., MD Work Phone: [facility] 03-02-2022 08:06-0500 Systolic blood pressure 152 mm[Hg] Zane Patel Jr., MD Work Phone: [facility] Encounters Encounter Date Encounter Type Care Provider Facility Start: 12-01-2022 Telephone encounter Zane Patel MD Work Phone: Neurology Procedures Date Procedure Procedure Detail Performing Clinician Start: 10-26-2022 Nitric oxide gas determination Celine Husain MD Work Phone: Start: 10-26-2022 Brncdilat rspse spmt ry pre&post-brncdilat admn Celine Husain MD Work Phone: Start: 03-16-2022 Ct head/brain w/o co ntrast material Zane Patel MD Work Phone: Plan of Treatment Date Care Activity Detail Author Start: 12-31-2022 Urine microalbumin profile DTaP,Tdap,Td Vaccine (2 - Td or Tdap) [facility] Start: 10-14-2022 Covid-19 Vaccine ( season) Covid-19 Vaccine () [facility] Start: 10-14-2022 Influenza vaccination [facility] Start: 09-29-2022 DIABETES SCREEN DIABETES SCREEN [facility] Start: 09-29-2022 Diabetes Screening Diabetes Screening [facility] Start: 02-13-2022 ADVANCE DIRECTIVE DISCUSSION ADVANCE DIRECTIVE DISCUSSION [facility] Start: 02-13-2022 DEPRESSION ASSESSMENT DEPRESSION ASSESSMENT [facility] Start: 10-14-2021 Influenza vaccination INFLUENZA (#1) [facility] Start: 07-08-2020 COVID-19 VACCINE (3 - Booster for Moderna series) COVID-19 VACCINE (3 - Booster for Moderna series) [facility] Start: 07-08-2020 COVID-19 VACCINE (3 - Moderna series) COVID-19 VACCINE (3 - Moderna series) [facility] Start: 09-03-2016 Pneumococcal Vaccine: 65+ (1 - PCV) Pneumococcal Vaccine: 65+ (1 - PCV) [facility] Start: 09-03-2016 PNEUMOCOCCAL: 65+ (1 - PCV) PNEUMOCOCCAL: 65+ (1 - PCV) [facility] Start: 2011 RSV Vaccine (1 - 1-dose 60+ series) RSV Vaccine (1 - 1-dose 60+ series) [facility] Start: 09-03-2001 SHINGRIX VACCINE (1 of 2) SHINGRIX VACCINE (1 of 2) [facility] Start: 09-03-1996 COLOGUARD (FIT-DNA) COLOGUARD (FIT-DNA) [facility] Start: 09-03-1996 Colonoscopy COLONOSCOPY [facility] Start: 09-03-1996 COLORECTAL CANCER SCREENING COLORECTAL CANCER SCREENING [facility] Start: 09-03-[address] COLONOGRAPHY [facility] Start: 09-03-1996 FECAL OCCULT BLOOD FECAL OCCULT BLOOD [facility] Start: 09-03-1996 SIGMOIDOSCOPY SIGMOIDOSCOPY [facility] Start: 09-03-1986 Lipid 1996 panel - Serum or Plasma Lipid Screening [facility] Start: 09-03-1986 LIPID SCREEN LIPID SCREEN [facility] Start: 09-03-1970 Urine microalbumin profile [facility] Start: 09-03-1969 HEPATITIS C SCREENING HEPATITIS C SCREENING [facility] End: 04-01-[address]23 CT BRAIN WO IVCON CT BRAIN WO IVCON Radiology Routine Parkinson disease (HCC) 1 Occurrences starting 03/02/2022 until 04/01/2023 [facility] Work Phone: Immunizations Immunization Date Immunization Notes Care Provider Sonia norwood 01-02-2020 influenza virus vacc ine, unspecified formulation Pulm Wstr Work Phone: [facility] Payers Date Payer Category Payer Medicare [employer] MEDICARE [employer] MEDICARE PPO [id number] 2019-Present [phone] [address] [address] [place] [address] PPO [id number] 2019 Medicare [id number] Social History Date Type Detail Facility Start: 04-18-2022 [facility] Start: 1950 Sex Assigned At Not on file [facility] Start: 08-08-2022 [facility] Never [facility] tobacco [facility] Start: 08-08-2022 Tobacco use and exposure Smoke less tobacco non-user [facility] Start: 01-21-2020 End: 08-08-2022 History of Social function [facility] Start: 01-21-2020 End: 08-08-2022 Tobacco use panel [facility] Adult Depression Screening Assessment 1 [facility] Clinical Notes 03-02-2022 to 12-01-2022 Telephone Encounter - Mya Ervin LPN - 12/01/2022 6:41 PM Zane Joseph Jr., MD - 11/28/2022 3:28 PM Zane Joseph Jr., MD - 11/28/2022 3:28 PM EDT Note Date & Type Note Facility 12-01-2022 Miscellaneous Notes Fax received from pharmacy Rx Carbidopa/levodopa 50-200 cannot be cut in half. Form placed on MelintaN desk in brady location for review. Mya Ervin LPN documented in this encounter [facility] 11-28-2022 Note HNO ID: [id number] Author: Zane Patel Jr., MD Service: ? Author Type: Physician Type: Progress Notes Filed: 11/28/2022 6:56 PM Note Text: ESTABLISHED PATIENT VISIT CHIEF COMPLAINT: Follow up HISTORY OF PRESENT ILLNESS: Zane Garnett is a 72 year old male, BMI 39.31 kg/m2 with a PMH significant for and per last office visit of 08/08/22: ASSESSMENT/PLAN: 1. Lightheadedness - ICD9: 780.4, ICD10: R42 (primary diagnosis) - note no definite loc but near syncope once. 2. Shortness of breath - ICD9: 786.05, ICD10: R06.02 New complaints since last visit. ER evaluation as above for at least one episode. Etiology uncertain. At times does note palpitations. Exam unremarkable today. Already scheduled to see pulmonary. Will also perform Zio event monitor to evaluate for possible arrhythmia (palpitations) as a cause as well as ECHO with no prior cardiac workup. If abnormal will refer to cardiology. States PCP aware. 3. Parkinson disease (HCC) - ICD9: 332.0, ICD10: G20 Stable. Overall exam improved since changed to CR dosing twice daily. Will make no changes in meds today given other ongoing conditions. 4. 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 Daytime sleepiness - ICD9: 780.54, ICD10: R40.0 7. Sleep apnea-like behavior - ICD9: 780.59, ICD10: G47.39 Patient no longer taking melatonin. Continues to have delayed sleep pattern but note he is also sleeping during the day as he is always tired . Etiology uncertain but concern for underlying DOLORES which could provoked RBD type behaviors as well. Risk factors include crowded airway and obesity. Discussed with patient and his : the physiology of OSAS, medical conditions associated with OSAS (DM, HTN, CAD, Depression, Stroke, Headache...) and treatment options (UPPP, Dental appliances, CPAP...). Patient not wanting in lab study but willing to have HSAT - ordered. Advised patient to avoid activities that could harm self or others when tired/sleepy, including driving and/or operating heavy machinery. Encouraged weight loss, and continued compliance with other medications. Will hold melatonin for now. Reviewed risks associated with untreated RBD but states would feel to tired during day to take melatonin or other meds used for RBD, all of which would result in increased sedation. HSAT showed pt to have BUSTER of 31.7 with min O2 sat of 79% and patient spending 19.5% of study with O2 sat <90%. Pt does have a cardiac abnormality but they are unclear as to what it was. He is to undergo a nuclear cath per . SOB persists, and pt feels lightheadedness worse - pt believes due to new BP med provided cardiology. Now off Norvasc. Pt states inadequate water intake. As for bilevel device, patient likes it . Titration since HSAT above, and reviewed with pt. On Autobilevel PAP. Feels rested on the device. Last night only used for about 4 hours and did not feel as good. Sleep is better. No longer kicking in his sleep. No longer moaning and groaning through night. No longer acting out dreams. PAP data download for past 54 days shows 54/54 days sued. Set at IPAP max 20, EPAP donald 8 with PS 4. 95% leak is 69.7 LPM. AHI is 1.3. 95% pressures ~13/9 cmH2O. Tremors not as noticed as before. Feels walking is worse and shuffling more. Uncertain if associated with time of day but definitely worse when tired. Not active at home. REVIEW OF SYSTEMS GENERAL:No weight loss, malaise or fevers. HEENT:Negative for frequent or significant headaches, No changes in hearing or vision, no nose bleeds or other nasal problems NECK:Negative for lumps, goiter, pain and significant neck swelling RESPIRATORY: Negative for cough, wheezing or shortness of breath. CARDIOVASCULAR: Negative for chest pain, leg swelling or palpitations. GASTROINTESTINAL: Negative for abdominal discomfort, blood in stools or black stools or change in bowel habits GENITOURINARY: No history of dysuria, frequency or incontinence MUSCULOSKELETAL: Negative for joint pain or swelling, back pain or muscle pain. NEUROLOGIC:Negative for focal numbness or weakness, headaches and dizziness or syncope, vision changes, speech/languag changes - EXCEPT that as per HPI above. LAB/IMAGING: Those performed since patient's last visit have been reviewed. WBC (x10-3/uL) Date Value 09/30/2019 9.0 RBC (x10-6/uL) Date Value 09/30/2019 5.06 HEMOGLOBIN (g/dL) Date Value 09/30/2019 15.0 Hematocrit (%) Date Value 09/30/2019 43.8 MCV (fL) Date Value 09/30/2019 86.6 MCH (pg) Date Value 09/30/2019 29.6 MCHC (g/dL) Date Value 09/30/2019 34.2 Platelet Count (x10-3/uL) Date Value 09/30/2019 218 MPV (fL) Date Value 09/30/2019 9.2 BUN (mg/dL) Date Value 09/30/2019 27 (H) Creatinine (mg/dL) Date Value 09/30/2019 1.4 (H) Chloride (mmol/L) Date Value 09/30/2019 103 C (more content not included)... [facility] 11-28-2022 Note HNO ID: [id number] Author: Zane Patel Jr., MD Service: ? Author Type: Physician Type: Progress Notes Filed: 11/28/2022 6:56 PM Note Text: 10/05/2022 PROMIS Global Health Physical Health Summary Physical health: Fair Everyday physical activity, ability: Moderately Fatigue: Moderate Pain level: 2 General health: Good Social activities/roles, ability: Fair Physical Health T-Score (Fair) Physical Health Percentile PROMIS [facility] Mental Health Summary Quality of life: Good Mental health (mood,thinking): Good Social satisfaction: Good Emotional problems (anxious,depressed): Sometimes Mental Health T-Score (Good) Mental Health Percentile PROMIS NEUROQOL COGNITIVE FUNCTION SCORE 02/24/2022 [facility] Neuroqol Cognitive Percentile 5 PROMIS PHYSICAL FUNCTION SCORE 02/24/2022 [facility] Physical Function Percentile 14 Percentiles provide an indication of how a patient's score ranks in relation to the [place] general population. > 31st percentile is within normal limits or better *< 31st percentile is at least ? SD worse than population, which may be clinically relevant < 16th percentile is at least 1 SD worse than population and warrants attention 02/24/2022 Sleep Apnea Probability Snores loudly: Yes Tired, fatigued or sleepy in daytime: Yes Stops breathing or choking/gasping during sleep: No High blood pressure: Yes Sleep Apnea Probability Score: (Sleep study not recommended) [facility] 11-28-2022 Note HNO ID: [id number] Author: Jammie Jamison LPN Service: ? Author Type: LICENSED NURSE Type: Progress Notes Filed: 11/28/2022 6:56 PM Note Text: 10/05/2022 PROMIS Global Health Physical Health Summary Physical health: Fair Everyday physical activity, ability: Moderately Fatigue: Moderate Pain level: 2 General health: Good Social activities/roles, ability: Fair Physical Health T-Score (Fair) Physical Health Percentile PROMIS Global Health Mental Health Summary Quality of life: Good Mental health (mood,thinking): Good Social satisfaction: Good Emotional problems (anxious,depressed): Sometimes Mental Health T-Score (Good) Mental Health Percentile PROMIS NEUROQOL COGNITIVE FUNCTION SCORE 02/24/2022 [facility] Neuroqol Cognitive Percentile 5 PROMIS PHYSICAL FUNCTION SCORE 02/24/2022 [facility] Physical Function Percentile 14 Percentiles provide an indication of how a patient's score ranks in relation to the [place] general population. > 31st percentile is within normal limits or better *< 31st percentile is at least ? SD worse than population, which may be clinically relevant < 16th percentile is at least 1 SD worse than population and warrants attention 02/24/2022 Sleep Apnea Probability Snores loudly: Yes Tired, fatigued or sleepy in daytime: Yes Stops breathing or choking/gasping during sleep: No High blood pressure: Yes Sleep Apnea Probability Score: (Sleep study not recommended) [facility] 11-28-2022 History of Presen t illness Narrative ESTABLISHED PATIENT VISIT CHIEF COMPLAINT: Follow up HISTORY OF PRESENT ILLNESS: Zane Garnett is a 72 year old male, BMI 39.31 kg/m2 with a PMH significant for and per last office visit of 08/08/22: ASSESSMENT/PLAN: 1. Lightheadedness - ICD9: 780.4, ICD10: R42 (primary diagnosis) - note no definite loc but near syncope once. 2. Shortness of breath - ICD9: 786.05, ICD10: R06.02 New complaints since last visit. ER evaluation as above for at least one episode. Etiology uncertain. At times does note palpitations. Exam unremarkable today. Already scheduled to see pulmonary. Will also perform Zio event monitor to evaluate for possible arrhythmia (palpitations) as a cause as well as ECHO with no prior cardiac workup. If abnormal will refer to cardiology. States PCP aware. 3. Parkinson disease (HCC) - ICD9: 332.0, ICD10: G20 Stable. Overall exam improved since changed to CR dosing twice daily. Will make no changes in meds today given other ongoing conditions. 4. 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 Daytime sleepiness - ICD9: 780.54, ICD10: R40.0 7. Sleep apnea-like behavior - ICD9: 780.59, ICD10: G47.39 Patient no longer taking melatonin. Continues to have delayed sleep pattern but note he is also sleeping during the day as he is always tired . Etiology uncertain but concern for underlying DOLORES which could provoked RBD type behaviors as well. Risk factors include crowded airway and obesity. Discussed with patient and his : the physiology of OSAS, medical conditions associated with OSAS (DM, HTN, CAD, Depression, Stroke, Headache...) and treatment options (UPPP, Dental appliances, CPAP...). Patient not wanting in lab study but willing to have HSAT - ordered. Advised patient to avoid activities that could harm self or others when tired/sleepy, including driving and/or operating heavy machinery. Encouraged weight loss, and continued compliance with other medications. Will hold melatonin for now. Reviewed risks associated with untreated RBD but states would feel to tired during day to take melatonin or other meds used for RBD, all of which would result in increased sedation. HSAT showed pt to have BUSTER of 31.7 with min O2 sat of 79% and patient spending 19.5% of study with O2 sat <90%. Pt does have a cardiac abnormality but they are unclear as to what it was. He is to undergo a nuclear cath per . SOB persists, and pt feels lightheadedness worse - pt believes due to new BP med provided cardiology. Now off Norvasc. Pt states inadequate water intake. As for bilevel device, patient likes it . Titration since HSAT above, and reviewed with pt. On Autobilevel PAP. Feels rested on the device. Last night only used for about 4 hours and did not feel as good. Sleep is better. No longer kicking in his sleep. No longer moaning and groaning through night. No longer acting out dreams. PAP data download for past 54 days shows 54/54 days sued. Set at IPAP max 20, EPAP donald 8 with PS 4. 95% leak is 69.7 LPM. AHI is 1.3. 95% pressures ~13/9 cmH2O. Tremors not as noticed as before. Feels walking is worse and shuffling more. Uncertain if associated with time of day but definitely worse when tired. Not active at home. REVIEW OF SYSTEMS GENERAL:No weight loss, malaise or fevers. HEENT:Negative for frequent or significant headaches, No changes in hearing or vision, no nose bleeds or other nasal problems NECK:Negative for lumps, goiter, pain and significant neck swelling RESPIRATORY: Negative for cough, wheezing or shortness of breath. CARDIOVASCULAR: Negative for chest pain, leg swelling or palpitations. GASTROINTESTINAL: Negative for abdominal discomfort, blood in stools or black stools or change in bowel habits GENITOURINARY: No history of dysuria, frequency or incontinence MUSCULOSKELETAL: Negative for joint pain or swelling, back pain or muscle pain. NEUROLOGIC:Negative for focal numbness or weakness, headaches and dizziness or syncope, vision changes, speech/languag changes - EXCEPT that as per HPI above. LAB/IMAGING: Those performed since patient's last visit have been reviewed. WBC (x10-3/uL) Date Value 09/30/2019 9.0 RBC (x10-6/uL) Date Value 09/30/2019 5.06 HEMOGLOBIN (g/dL) Date Value 09/30/2019 15.0 Hematocrit (%) Date Value 09/30/2019 43.8 MCV (fL) Date Value 09/30/2019 86.6 MCH (pg) Date Value 09/30/2019 29.6 MCHC (g/dL) Date Value 09/30/2019 34.2 Platelet Count (x10-3/uL) Date Value 09/30/2019 218 MPV (fL) Date Value 09/30/2019 9.2 BUN (mg/dL) Date Value 09/30/2019 27 (H) Creatinine (mg/dL) Date Value 09/30/2019 1.4 (H) Chloride (mmol/L) Date Value 09/30/2019 103 CO2 (mmol/L) Date Value 09/30/2019 27 Protein, Total (g/dL) Date Value 09/30/2019 7.4 Albumin (g/dL) Date Value 09/30/2019 3.9 Calcium (mg/dL) Date Value 09/30/2019 8.9 Alkaline Phosphatase (IU/L) Date Value 09/30/2019 49 Bilirubin, Total (mg/dL) Date Value 09/30/2019 0.50 AST (IU/L) Date Value 09/30/2019 24 ALT (IU/L) Date Value 09/30/2019 39 MEDICATIONS: amLODIPine (NORVASC) 5 mg tablet^Take 5 mg by mouth once daily.^Disp: ^Rfl: aspirin, enteric coated (ASPIRIN, ENTERIC COATED) 81 mg EC tablet^Take 81 mg by mouth once daily.^Disp: ^Rfl: atorvastatin (LIPITOR) 20 mg tablet^Take 20 mg by mouth once daily.^Disp: ^Rfl: carbidopa-levodopa CR (SINEMET CR) 50-200 mg per tablet^Take 1 tablet by mouth twice daily. (8AM and 3-4PM)^Disp: 180 tablet^Rfl: 1 CPAP/BIPAP/OTHER^Auto bilevel PAP set at IPAP max 20, EPAP min 8 and PS 4 cmH2O with humidification. Lifetime supplies.^Disp: 1 Each^Rfl: 0 glimepiride (AMARYL) 4 mg tablet^Take 4 mg by mouth twice daily.^Disp: ^Rfl: hydroCHLOROthiazide (HYDRODIURIL, ESIDRIX) 25 mg tablet^Take 25 mg by mouth once daily.^Disp: ^Rfl: LANTUS SOLOSTAR U-100 INSULIN 100 unit/mL (3 mL)^Inject 36 Units subcutaneously daily at bedtime.^Disp: ^Rfl: losartan (COZAAR) 100 mg tablet^Take 100 mg by mouth once daily.^Disp: ^Rfl: melatonin 3 mg tablet^Take at 8-9 PM nightly.^Disp: 90 tablet^Rfl: 1 metFORMIN ER (GLUCOPHAGE XR) 500 mg 24 hr tablet^Take 1,000 mg by mouth twice daily.^Disp: ^Rfl: NIFEdipine ER (PROCARDIA XL) 60 mg 24 hr tablet^Take 60 mg by mouth once daily.^Disp: ^Rfl: omeprazole (PRILOSEC) 20 mg capsule^Take 20 mg by mouth once daily.^Disp: ^Rfl: potassium citrate ER (UROCIT-K) 10 mEq (1,080 mg)^Take 1,080 mg by mouth once daily.^Disp: ^Rfl: sertraline (ZOLOFT) 50 mg tablet^Take 50 mg by mouth daily at bedtime.^Disp: ^Rfl: HISTORIES PAST MEDICAL HISTORY Diagnosis Date Congenital absence of kidney Diabetes mellitus (HCC) GERD (gastroesophageal reflux disease) HLD (hyperlipidemia) HTN (hypertension) DOLORES treated with BiPAP Parkinson disease FAMILY HISTORY Problem Relation Age of Onset other (AR) Mother Lung Cancer Mother COPD Father other (cva) Sister Coronary Artery Disease Brother CABG Coronary Artery Disease Brother Valve replacement SOCIAL HISTORY Social History Tobacco Use Smoking status: Never Smokeless tobacco: Never PHYSICAL EXAMINATION BP 132/82 Pulse 67 Resp 18 Wt 124.3 kg (274 lb) SpO2 96% BMI 39.31 kg/m GENERAL EXAM: General appearance: NAD, pleasant. HEENT: NC/AT, nasal congestion absent, no oral lesions, membranes moist. Lungs: CTA bilaterally. CV: RRR nl S1, S2.. Skin: Cool to touch. NEURO EXAM: General: Awake, alert, oriented x3 (person,place,time), speech fluent, no dysarthria; comprehension, naming, repetition intact. CN: PERRL, EOMI and without nystagmus, VFF to confrontation, facial sensation and strength are normal and symmetric, hearing is intact, palate and tongue movements are intact and symmetric. SCM and trapezius strength normal. Motor: Bulk nml and strength (5/5) bilaterally (throughout extremities x4). Tone nml throughout. Coordination: FNF, RAYNE, HTS intact. No tremors today. Sensation: Light touch, vibration intact throughout. No evidence of neglect. Gait: No issues rising from chair without use of upper ext. Stable but some degree of shuffling with need for 4-6 steps to turn 180 degrees and decreased arm swing on R. Romberg normal. No retropulsion on pull testing. Assessment and Plan: ASSESSMENT/PLAN: 1. Obstructive sleep apnea (adult) (pediatric) - ICD9: 327.23, ICD10: G47.33 (primary diagnosis) Doing well on PAP therapy. Subjectively and objectively compliant with device. No complaints. AHI normalized. Encouraged continued compliance. Mask leak noted on download (not obvious to pt). Advised pt to contact DME for mask fit and replacement. Reminded pt to clean and replace equipment regularly. Advised pt not to drive or operate heavy machinery when sleepy. 2. RBD (REM behavioral disorder) - ICD9: 327.42, ICD10: G47.52 Resolved with PAP therapy, even with pt not using melatonin regularly. Question if component pseduo RBD. Advised to monitor for symptoms closely. Explained need for safety and means of avoiding injury due to RBD. To contact us immediately and restart melatonin if recurrence of symptoms. 3. Parkinson disease - ICD9: 332.0, ICD10: G20.A1 Gait worse since last visit. Pt still wanting to continue on Sinemet CR twice daily. Explained limitations of medication. For now will try to see if patient responds to increase dose of Sinemet ER 50/200 1.5 tabs Q12 hours. SE and ADRs reviewed with pt and . Encouraged exercise. Pt declines PT referral at this time. D/w pt possible prognosis of PD. Zane Patel MD I spent a total of 53 minutes on the date of the service which included preparing to see the patient, [id number] patient care, completing clinical documentation, obtaining and/or reviewing separately obtained history, performing a medically appropriate examination, counseling and educating the patient/family/caregiver, ordering medications, tests, or procedures, independently interpreting results (not separately reported), and communicating results to the patient/family/caregiver (results include PAP data download). 10/05/2022 PROMIS Global Health Physical Health Summary Physical health: Fair Everyday physical activity, ability: Moderately Fatigue: Moderate Pain level: 2 General health: Good Social activities/roles, ability: Fair Physical Health T-Score (Fair) Physical Health Percentile PROMIS Global Health Mental Health Summary Quality of life: Good Mental health (mood,thinking): Good Social satisfaction: Good Emotional problems (anxious,depressed): Sometimes Mental Health T-Score (Good) Mental Health Percentile PROMIS NEUROQOL COGNITIVE FUNCTION SCORE 02/24/2022 [facility] Neuroqol Cognitive Percentile 5 PROMIS PHYSICAL FUNCTION SCORE 02/24/2022 [facility] Physical Function Percentile 14 Percentiles provide an indication of how a patient's score ranks in relation to the [place] general population. > 31st percentile is within normal limits or better *< 31st percentile is at least SD worse than population, which may be clinically relevant < 16th percentile is at least 1 SD worse than population and warrants attention 02/24/2022 Sleep Apnea Probability Snores loudly: Yes Tired, fatigued or sleepy in daytime: Yes Stops breathing or choking/gasping during sleep: No High blood pressure: Yes Sleep Apnea Probability Score: (Sleep study not recommended) 10/05/2022 PROMIS Global Health Physical Health Summary Physical health: Fair Everyday physical activity, ability: Moderately Fatigue: Moderate Pain level: 2 General health: Good Social activities/roles, ability: Fair Physical Health T-Score (Fair) Physical Health Percentile PROMIS Global Health Mental Health Summary Quality of life: Good Mental health (mood,thinking): Good Social satisfaction: Good Emotional problems (anxious,depressed): Sometimes Mental Health T-Score (Good) Mental Health Percentile PROMIS NEUROQOL COGNITIVE FUNCTION SCORE 02/24/2022 [facility] Neuroqol Cognitive Percentile 5 PROMIS PHYSICAL FUNCTION SCORE 02/24/2022 [facility] Physical Function Percentile 14 Percentiles provide an indication of how a patient's score ranks in relation to the [place] general population. > 31st percentile is within normal limits or better *< 31st percentile is at least SD worse than population, which may be clinically relevant < 16th percentile is at least 1 SD worse than population and warrants attention 02/24/2022 Sleep Apnea Probability Snores loudly: Yes Tired, fatigued or sleepy in daytime: Yes Stops breathing or choking/gasping during sleep: No High blood pressure: Yes Sleep Apnea Probability Score: (Sleep study not recommended) documented in this encounter [facility] 10-26-2022 Note HNO ID: [id number] Author: Dinora Carreon RPFT Service: ? Author Type: Respiratory Therapist Type: Procedures Filed: 10/26/2022 8:26 AM Note Text: RESPIRATORY THERAPY ORAL EXHALED NITRIC OXIDE SERVICE DATE: 10/26/2022 SERVICE TIME: 8:26 AM Oral Exhaled Nitric Oxide measurement: 20.0 (ppb) Normal: Adult 5-20 ppb, pediatric (<12 years) 5-15 ppb High Normal / Increased: Adult 20-35 ppb, pediatric (<12 years) 15-25 ppb Moderately raised exhaled Nitric Oxide may indicate underlying inflammation, but note that: Cold and influenza can raise exhaled Nitric Oxide and some patients have higher baseline exhaled Nitric Oxide levels than others. High: Adult >35 ppb, pediatric (<12 years) >25 ppb Indicative of ongoing eosinophilic inflammation. Symptomatic patient likely to respond to steroids. Possible causes (if already on steroids): Poor compliance, recent allergen exposure, steroid dose inadequate, and steroid resistance. Note that not all patients with high exhaled nitric oxide levels display symptoms. Oral Exhaled Nitric Oxide measurement (Previous Encounters) Test Date Oral Exhaled Nitric Oxide (ppb) 10/26/2022 20.0 NAME: MARGARETTE Jason PATIENT NAME: Zane Garnett DATE: October 26, 2022 TIME: 8:26 AM [facility] 10-26-2022 Note HNO ID: [id number] Author: Dinora Carreon RPFT Service: ? Author Type: Respiratory Therapist Type: Progress Notes Filed: 10/26/2022 8:26 AM Note Text: PULM FUNCTION SMARTBLOCK: Provider: Celine Husain MD Assisting Tech: Dinora Carreon RPFT Spirometry: 1 Exhaled Nitric Oxide: 1 [facility] 10-26-2022 Procedure note Associated Ord er(s): NITRIC OXIDE, EXHALED RESPIRATORY THERAPY ORAL EXHALED NITRIC OXIDE SERVICE DATE: 10/26/2022 SERVICE TIME: 8:26 AM Oral Exhaled Nitric Oxide measurement: 20.0 (ppb) Normal: Adult 5-20 ppb, pediatric (<12 years) 5-15 ppb High Normal / Increased: Adult 20-35 ppb, pediatric (<12 years) 15-25 ppb Moderately raised exhaled Nitric Oxide may indicate underlying inflammation, but note that: Cold and influenza can raise exhaled Nitric Oxide and some patients have higher baseline exhaled Nitric Oxide levels than others. High: Adult >35 ppb, pediatric (<12 years) >25 ppb Indicative of ongoing eosinophilic inflammation. Symptomatic patient likely to respond to steroids. Possible causes (if already on steroids): Poor compliance, recent allergen exposure, steroid dose inadequate, and steroid resistance. Note that not all patients with high exhaled nitric oxide levels display symptoms. Oral Exhaled Nitric Oxide measurement (Previous Encounters) Test Date Oral Exhaled Nitric Oxide (ppb) 10/26/2022 20.0 NAME: MARGARETTE Jason PATIENT NAME: Zane Garnett DATE: October 26, 2022 TIME: 8:26 AM documented in this encounter [facility] 10-26-2022 History of Presen t illness Narrative PULM FUNCTION SMARTBLOCK: Provider: Celine Husain MD Assisting Tech: Dinora Carreon RPFT Spirometry: 1 Exhaled Nitric Oxide: 1 documented in this encounter [facility] 10-10-2022 Note HNO ID: [id number] Author: Celine Husain MD Service: ? Author Type: Physician Type: Progress Notes Filed: 10/10/2022 4:20 PM Note Text: . Respiratory [place] Note Patient name: Zane Garnett PCP: Brianna Israel MD Referring Physician: same Consultation requested by Dr. Israel for an opinion regarding SOB. My final recommendations will be communicated back to the requesting physician by way of shared Medical record or letter to requesting physician via [place] mail. CC: SOB HPI: Zane Garnett 72 year old obese male never smoker with PMH significant for DM, DOLORES on BiPAP, HTN, Parkinson's disease, GERD, HLD, being referred for evaluation of SOB. Patient first noted SOB when participating in physical therapy following knee surgery. He had difficulty completing the exercises. He has had difficulty completing balance recesser, having to stop and rest. He has SOB and feels chest heaviness/pressure. No chest pain, wheezing. has noted frequent dry cough. He had a recent Holter monitor that was significant for SVT. Pending cardiac evaluation. Patient denies palpitations. Although he has never smoked, he grew up in a smoking home. He was concerned that his SOB was due to asthma or COPD as he noted some improvement after a breathing treatment he received in the ED as part of his SOB evaluation. Past history is notable for new diagnosis of DOLORES, recently starting on BiPAP. He has noted that is SOB is slightly improved since starting PAP. No history of asthma as a child, recurrent bronchitis or pneumonia. DATA: Labs: Review of outside labs shows normal BNP, CBC and chemistries Imaging / Diagnostic Studies: [facility] Imaging Services [address] [place] [address] Chest 1 View (Portable) PCP: Dr. Brianna Israel MD Status: REG ER Study: Chest 1 View (Portable) Date of Exam: 07/25/22 Exam# [id number] Ordering Dr: Jorge Ruano MD STUDY: X-RAY CHEST REASON FOR EXAM: Male, 71 years old. Increasing shortness of breath. Chest heaviness. TECHNIQUE: Single AP portable view of the chest. COMPARISON: None. FINDINGS: EKG electrodes are seen. The lungs are clear and expanded. Scattered calcified granulomas. There is no demonstrated pleural abnormality. There is mild cardiac enlargement. Normal mediastinum and wilberto. Normal visualized pulmonary arteries. There is atherosclerotic calcification of the aortic arch with tortuosity. There are diffuse degenerative changes of the visualized thoracic spine. Normal visualized ribs, clavicles, and shoulders. There is no demonstrated abnormality of the visualized soft tissue structures of the upper abdomen. IMPRESSION: Mild cardiomegaly. The lungs are clear. I personally reviewed the images which is only pertinent for mild cardiomegaly PAST MEDICAL HISTORY Diagnosis Date Congenital absence of kidney Diabetes mellitus (HCC) GERD (gastroesophageal reflux disease) HLD (hyperlipidemia) HTN (hypertension) DOLORES treated with BiPAP Parkinson disease (HCC) ALLERGIES No Known Allergies carbidopa-levodopa CR (SINEMET CR) 50-200 mg per tabletTake 1 tablet by mouth twice daily. (8AM and 3-4PM)Disp: 180 tabletRfl: 1 melatonin 3 mg tabletTake at 8-9 PM nightly.Disp: 90 tabletRfl: 1 amLODIPine (NORVASC) 5 mg tabletTake 5 mg by mouth once daily.Disp: Rfl: atorvastatin (LIPITOR) 20 mg tabletTake 20 mg by mouth once daily.Disp: Rfl: glimepiride (AMARYL) 4 mg tabletTake 4 mg by mouth twice daily.Disp: Rfl: hydroCHLOROthiazide (HYDRODIURIL, ESIDRIX) 25 mg tabletTake 25 mg by mouth once daily.Disp: Rfl: LANTUS SOLOSTAR U-100 INSULIN 100 unit/mL (3 mL)Inject 36 Units subcutaneously daily at bedtime.Disp: Rfl: losartan (COZAAR) 100 mg tabletTake 100 mg by mouth once daily.Disp: Rfl: metFORMIN ER (GLUCOPHAGE XR) 500 mg 24 hr tabletTake 1,000 mg by mouth twice daily.Disp: Rfl: omeprazole (PRILOSEC) 20 mg capsuleTake 20 mg by mouth once daily.Disp: Rfl: sertraline (ZOLOFT) 50 mg tabletTake 50 mg by mouth daily at bedtime.Disp: Rfl: aspirin, enteric coated (ASPIRIN, ENTERIC COATED) 81 mg EC tabletTake 81 mg by mouth once daily.Disp: Rfl: potassium citrate ER (UROCIT-K) 10 mEq (1,080 mg)Take by mouth one time only.Disp: Rfl: CPAP/BIPAP/OTHERAuto bilevel PAP set at IPAP max 20, EPAP min 8 and PS 4 cmH2O with humidification. 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 [facility] 10-10-2022 History of Presen t illness Narrative Images from the original note were not included. . Respiratory [place] Note Patient name: Zane Garnett PCP: Brianna Israel MD Referring Physician: same Consultation requested by Dr. Israel for an opinion regarding SOB. My final recommendations will be communicated back to the requesting physician by way of shared Medical record or letter to requesting physician via [place] mail. CC: SOB HPI: Zane Garnett 72 year old obese male never smoker with PMH significant for DM, DOLORES on BiPAP, HTN, Parkinson's disease, GERD, HLD, being referred for evaluation of SOB. Patient first noted SOB when participating in physical therapy following knee surgery. He had difficulty completing the exercises. He has had difficulty completing balance recesser, having to stop and rest. He has SOB and feels chest heaviness/pressure. No chest pain, wheezing. has noted frequent dry cough. He had a recent Holter monitor that was significant for SVT. Pending cardiac evaluation. Patient denies palpitations. Although he has never smoked, he grew up in a smoking home. He was concerned that his SOB was due to asthma or COPD as he noted some improvement after a breathing treatment he received in the ED as part of his SOB evaluation. Past history is notable for new diagnosis of DOLORES, recently starting on BiPAP. He has noted that is SOB is slightly improved since starting PAP. No history of asthma as a child, recurrent bronchitis or pneumonia. DATA: Labs: Review of outside labs shows normal BNP, CBC and chemistries Imaging / Diagnostic Studies: [facility] Imaging Services [address] [place] [address] Chest 1 View (Portable) PCP: Dr. Brianna Israel MD Status: REG ER Study: Chest 1 View (Portable) Date of Exam: 07/25/22 Exam# [id number] Ordering Dr: Jorge Ruano MD STUDY: X-RAY CHEST REASON FOR EXAM: Male, 71 years old. Increasing shortness of breath. Chest heaviness. TECHNIQUE: Single AP portable view of the chest. COMPARISON: None. FINDINGS: EKG electrodes are seen. The lungs are clear and expanded. Scattered calcified granulomas. There is no demonstrated pleural abnormality. There is mild cardiac enlargement. Normal mediastinum and wilberto. Normal visualized pulmonary arteries. There is atherosclerotic calcification of the aortic arch with tortuosity. There are diffuse degenerative changes of the visualized thoracic spine. Normal visualized ribs, clavicles, and shoulders. There is no demonstrated abnormality of the visualized soft tissue structures of the upper abdomen. IMPRESSION: Mild cardiomegaly. The lungs are clear. I personally reviewed the images which is only pertinent for mild cardiomegaly PAST MEDICAL HISTORY Diagnosis Date Congenital absence of kidney Diabetes mellitus (HCC) GERD (gastroesophageal reflux disease) HLD (hyperlipidemia) HTN (hypertension) DOLORES treated with BiPAP Parkinson disease (HCC) ALLERGIES No Known Allergies carbidopa-levodopa CR (SINEMET CR) 50-200 mg per tablet^Take 1 tablet by mouth twice daily. (8AM and 3-4PM)^Disp: 180 tablet^Rfl: 1 melatonin 3 mg tablet^Take at 8-9 PM nightly.^Disp: 90 tablet^Rfl: 1 amLODIPine (NORVASC) 5 mg tablet^Take 5 mg by mouth once daily.^Disp: ^Rfl: atorvastatin (LIPITOR) 20 mg tablet^Take 20 mg by mouth once daily.^Disp: ^Rfl: glimepiride (AMARYL) 4 mg tablet^Take 4 mg by mouth twice daily.^Disp: ^Rfl: hydroCHLOROthiazide (HYDRODIURIL, ESIDRIX) 25 mg tablet^Take 25 mg by mouth once daily.^Disp: ^Rfl: LANTUS SOLOSTAR U-100 INSULIN 100 unit/mL (3 mL)^Inject 36 Units subcutaneously daily at bedtime.^Disp: ^Rfl: losartan (COZAAR) 100 mg tablet^Take 100 mg by mouth once daily.^Disp: ^Rfl: metFORMIN ER (GLUCOPHAGE XR) 500 mg 24 hr tablet^Take 1,000 mg by mouth twice daily.^Disp: ^Rfl: omeprazole (PRILOSEC) 20 mg capsule^Take 20 mg by mouth once daily.^Disp: ^Rfl: sertraline (ZOLOFT) 50 mg tablet^Take 50 mg by mouth daily at bedtime.^Disp: ^Rfl: aspirin, enteric coated (ASPIRIN, ENTERIC COATED) 81 mg EC tablet^Take 81 mg by mouth once daily.^Disp: ^Rfl: potassium citrate ER (UROCIT-K) 10 mEq (1,080 mg)^Take by mouth one time only.^Disp: ^Rfl: CPAP/BIPAP/OTHER^Auto bilevel PAP set at IPAP max 20, EPAP min 8 and PS 4 cmH2O with humidification. 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 No allergies EYES: No diplopia or blurry vision. CARDIOVASCULAR: No chest pain, palpitations, orthopnea, PND. Some edema PULM: See HPI GI: No dysphagia/odynophagia, problematic reflux : No urinary complaints, including dysuria, gross hematuria NEURO: No balance problems, peripheral weakness/paresthesias or numbness of concern. New diagnosis of Parkinson's MUSC-SKEL: Arthritis PSY: No concerns regarding depression, anxiety INTEGUMENTARY: No new skin changes or rashes PHYSICAL EXAMINATION: Wt 274 lb (124.3kg) BP 138/92, P 73, RR 15, SpO2 98% on RA General Appearance: Obese male, NAD. Skin: Skin color, texture, turgor normal, no suspicious rashes or lesions. Head: Normocephalic, no masses, lesions, tenderness or abnormalities. Eyes: Sclera, conjunctiva normal. Oropharynx: No oral lesions, Mallampati IV. Neck: No JVD, no masses, no TM. Lungs: Not labored, normal to percussion, no wheezes or crackles. Heart: RRR, no murmurs. Extremities: No edema, no clubbing. Neurologic: Alert and oriented, no focal findings, no tremors. Lymph Nodes: No cervical lymphadenopathy and No supraclavicular lymphadenopathy. Assessment/Plan: SOB/NAYLOR -Clinical history not consistent with airways disease. Due to patient's concern regarding his past smoke exposure, will check spirometry and Janis. Scheduled to see cardiology -Weight loss would be helpful Obesity Class 2 -BMI 39 -Weight loss advisable Celine Husain MD Res[facility] [place] documented in this encounter [facility] 08-26-2022 Miscellaneous Notes Order, DONN note, insurance information and HSAT result faxed to [facility] sleep center for testing. Pt aware [facility] will be contacting him to schedule. Jammie Jamison LPN TC to pt who is agreeable to the test. Pt is wanting the test done at [facility] if possible. Jammie Jamison LPN ----- Message from Zane Patel Jr., MD sent at 08/25/2022 7:34 PM EDT ----- Patient had not only severe DOLORES but also hypoxia during the home sleep study. While I know patient would prefer to not go in the sleep lab, given these findings I feel it is appropriate he have an in lab CPAP titration with tcpCO2 and extra limb leads to further evaluate and confirm disorder is treated. Untreated DOLORES can provoke or exacerbate cardiac conditions, DM, HTN and other med conditions. If patient agrees with titration, please let me know and order will be placed. Zane Patel MD documented in this encounter [facility] 08-22-2022 Note HNO ID: [id number] Author: Samara Skinner Service: ? Author Type: ? Type: Progress Notes Filed: 08/22/2022 6:30 PM Note Text: Sleep Study Check-In Documentation Date: August 22, 2022 Name: Zane Garnett Comments: HST was returned in working order with all sleep questionnaires Samara Skinner [facility] 08-22-2022 History of Presen t illness Narrative Sleep Study Check-In Documentation Date: August 22, 2022 Name: Zane Garnett Comments: HST was returned in working order with all sleep questionnaires Samara Skinner Nomad: [id number] Date: 08/18/22 [employer] Mailout Tracking Number: [id number] [employer] Return Tracking Number: [id number] August 11, 2022 An order has been received for Home Sleep Apnea Test (HSAT) from Dr. Zane Patel Jr., MD, A. Sleep Center Staff/Associate Director Of Development Staff Orders. Visit prep complete - Please refer to the sleep study order (under procedures tab) for protocol details and special instructions. The sleep study is scheduled for 09/11. Insurance: Payor: [employer] MEDICARE / Plan: [employer] MEDICARE PPO / Product Type: PPO / Payer/Plan Subscr Sex Relation Sub. Ins. ID Effective Group Num 1. [employer] MEDICA* ZANE GARNETT 1950 Male Self [id number] [birth year] [address] [address] Sydnie Gonzalez documented in this encounter [facility] 08-15-2022 Note HNO ID: [id number] Author: Fariha HORN Service: ? Author Type: ? Type: Progress Notes Filed: 08/22/2022 6:30 PM Note Text: Nomad: [id number] Date: 08/18/22 [employer] Mailout Tracking Number: [id number] [employer] Return Tracking Number: [id number] [facility] 08-11-2022 Note HNO ID: [id number] Author: Sydnie Gonzalez Service: ? Author Type: ? Type: Progress Notes Filed: 08/22/2022 6:30 PM Note Text: August 11, 2022 An order has been received for Home Sleep Apnea Test (HSAT) from Dr. Zane Patel Jr., MD, A. Sleep Center Staff/Associate Director Of Development Staff Orders. Visit prep complete - Please refer to the sleep study order (under procedures tab) for protocol details and special instructions. The sleep study is scheduled for 09/11. Insurance: Payor: [employer] MEDICARE / Plan: [employer] MEDICARE PPO / Product Type: PPO / Payer/Plan Subscr Sex Relation Sub. Ins. ID Effective Group Num 1. [employer] MED[employer]* ZANE GARNETT 1950 Male Self [id number] [birth year] [address] [address] Sydnie Gonzalez [facility] 08-09-2022 Miscellaneous Notes Office note faxed to PCP at [phone]. Jammie Jamison LPN Zane Patel Jr., MD [facility] Amanda Nurse Please send note to PCP. Thank you. documented in this encounter [facility] 08-08-2022 Note HNO ID: [id number] Author: Zane Patel Jr., MD Service: ? Author Type: Physician Type: Progress Notes Filed: 08/08/2022 5:38 PM Note Text: ESTABLISHED PATIENT VISIT CHIEF COMPLAINT: Follow Up HISTORY OF PRESENT ILLNESS: Zane Garnett is a 71 year old male, BMI 38.6 kg/m2 with a PMH significant for and per last office visit of 04/18/22: 1. Parkinson disease (HCC) - ICD9: 332.0, ICD10: G20 (primary diagnosis) 2. RBD (REM behavioral disorder) - ICD9: 327.42, ICD10: G47.52 Overall patient's neuro exam improved today since on Sinemet 25/100mg TID with meals, although patient not subjectively noting a significant difference. Uncertain if complaints above a side effect of Sinemet or other. Discussed other options for pt as it appears he is missing the afternoon dose quite often which may be why not noticing the improvement in symptoms. Thus, will change to Sinemet CR 50/200mg twice daily (8AM and 3-4PM) to see if symptoms improve as does med compliance while reducing me side effects. Restarting melatonin for prior RBD symptoms endorsed last visit. 3. 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 Will restart patient on melatonin but lower dose of 3mg nightly to be taken at 9PM with goal bedtime of MN. Goal is to advance sleep onset. Patient will also wake at the same time daily (8AM) which should allow for increase sleep burden and earlier sleep time. Patient states he is not shaking as much since change to the Sinemet CR 50-200mg QHS. However does feel more tired. Now also having spells of lightheaded and shortness of breath. States had cardiac workup in ER that was unremarkable. Thinks lightheadedness might be due to positional change. wonders if anxiety attacks. Not sure if palpitations. Glucose levels stable between high 80s to low 120s. Patient scheduled to see pulmonary at [facility]. Tremors worse with stress. States does not walk to good. Decreased stamina. Quick taking melatonin as he was tired. Going to bed about 9PM, uses crossword puzzle on computer then stupid videos, and not falling to sleep until after midnight but also sleeping during the day. Some snoring. Jerks in sleep. No RBD symptoms. REVIEW OF SYSTEMS GENERAL:No weight loss, malaise or fevers. HEENT:Negative for frequent or significant headaches, No changes in hearing or vision, no nose bleeds or other nasal problems NECK:Negative for lumps, goiter, pain and significant neck swelling RESPIRATORY: Negative for cough, wheezing or shortness of breath. CARDIOVASCULAR: Negative for chest pain, leg swelling or palpitations. GASTROINTESTINAL: Negative for abdominal discomfort, blood in stools or black stools or change in bowel habits GENITOURINARY: No history of dysuria, frequency or incontinence MUSCULOSKELETAL: Negative for joint pain or swelling, back pain or muscle pain. NEUROLOGIC:Negative for focal numbness or weakness, headaches and dizziness or syncope, vision changes, speech/languag changes - EXCEPT that as per HPI above. SKIN:Negative for lesions, rash, and itching. HEMATOLOGIC/LYMPHATIC/IMMUNOLOG IC:Negative for prolonged bleeding, bruising easily or swollen nodes. ENDOCRINE: Negative for cold or heat intolerance, polyuria, polydipsia and goiter. The remainder of the ROS was reviewed and is negative. LAB/IMAGING: Those performed since patient's last visit have been reviewed. WBC (x10-3/uL) Date Value 09/30/2019 9.0 RBC (x10-6/uL) Date Value 09/30/2019 5.06 HEMOGLOBIN (g/dL) Date Value 09/30/2019 15.0 Hematocrit (%) Date Value 09/30/2019 43.8 MCV (fL) Date Value 09/30/2019 86.6 MCH (pg) Date Value 09/30/2019 29.6 MCHC (g/dL) Date Value 09/30/2019 34.2 Platelet Count (x10-3/uL) Date Value 09/30/2019 218 MPV (fL) Date Value 09/30/2019 9.2 BUN (mg/dL) Date Value 09/30/2019 27 (H) Creatinine (mg/dL) Date Value 09/30/2019 1.4 (H) Chloride (mmol/L) Date Value 09/30/2019 103 CO2 (mmol/L) Date Value 09/30/2019 27 Protein, Total (g/dL) Date Value 09/30/2019 7.4 Albumin (g/dL) Date Value 09/30/2019 3.9 Calcium (mg/dL) Date Value 09/30/2019 8.9 Alkaline Phosphatase (IU/L) Date Value 09/30/2019 49 Bilirubin, Total (mg/dL) Date Value 09/30/2019 0.50 AST (IU/L) Date Value 09/30/2019 24 ALT (IU/L) Date Value 09/30/2019 39 MEDICATIONS: carbidopa-levodopa CR (SINEMET CR) 50-200 mg per tablet Take 1 tablet by mouth twice daily. (8AM and 3-4PM) amLODIPine (NORVASC) 5 mg tablet Take 5 mg by mouth once daily. atorvastatin (LIPITOR) 20 mg tablet Take 20 mg by mouth once daily. glimepiride (AMARYL) 4 mg tablet Take 4 mg by mouth twice daily. hydroCHLOROthiazide (HYDRODIURIL, ESIDRIX) 25 mg tablet Take 25 mg by mouth once daily. LANTUS SOLOSTAR U-100 INSULIN 100 unit/mL (3 mL) Inject 36 Units subcutaneously daily (more content not included)... [facility] 08-08-2022 Note HNO ID: [id number] Author: Vivi Irby MD Service: Cardiovascular Surgery Author Type: Physician Type: Procedures Filed: 09/03/2022 10:22 AM Note Text: Patient Name: Zane Garnett : 1950 Ordering Provider: ZANE PATEL JR. Indication: R42 Dizziness and giddiness Type of Monitor: Extended Monitoring-Zio Patch Enrollment Dates: 08/11/2022-08/25/2022 [facility] 08-08-2022 History of Presen t illness Narrative ESTABLISHED PATIENT VISIT CHIEF COMPLAINT: Follow Up HISTORY OF PRESENT ILLNESS: Zane Garnett is a 71 year old male, BMI 38.6 kg/m2 with a PMH significant for and per last office visit of 04/18/22: 1. Parkinson disease (HCC) - ICD9: 332.0, ICD10: G20 (primary diagnosis) 2. RBD (REM behavioral disorder) - ICD9: 327.42, ICD10: G47.52 Overall patient's neuro exam improved today since on Sinemet 25/100mg TID with meals, although patient not subjectively noting a significant difference. Uncertain if complaints above a side effect of Sinemet or other. Discussed other options for pt as it appears he is missing the afternoon dose quite often which may be why not noticing the improvement in symptoms. Thus, will change to Sinemet CR 50/200mg twice daily (8AM and 3-4PM) to see if symptoms improve as does med compliance while reducing me side effects. Restarting melatonin for prior RBD symptoms endorsed last visit. 3. 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 Will restart patient on melatonin but lower dose of 3mg nightly to be taken at 9PM with goal bedtime of MN. Goal is to advance sleep onset. Patient will also wake at the same time daily (8AM) which should allow for increase sleep burden and earlier sleep time. Patient states he is not shaking as much since change to the Sinemet CR 50-200mg QHS. However does feel more tired. Now also having spells of lightheaded and shortness of breath. States had cardiac workup in ER that was unremarkable. Thinks lightheadedness might be due to positional change. wonders if anxiety attacks. Not sure if palpitations. Glucose levels stable between high 80s to low 120s. Patient scheduled to see pulmonary at [facility]. Tremors worse with stress. States does not walk to good. Decreased stamina. Quick taking melatonin as he was tired. Going to bed about 9PM, uses crossword puzzle on computer then stupid videos, and not falling to sleep until after midnight but also sleeping during the day. Some snoring. Jerks in sleep. No RBD symptoms. REVIEW OF SYSTEMS GENERAL:No weight loss, malaise or fevers. HEENT:Negative for frequent or significant headaches, No changes in hearing or vision, no nose bleeds or other nasal problems NECK:Negative for lumps, goiter, pain and significant neck swelling RESPIRATORY: Negative for cough, wheezing or shortness of breath. CARDIOVASCULAR: Negative for chest pain, leg swelling or palpitations. GASTROINTESTINAL: Negative for abdominal discomfort, blood in stools or black stools or change in bowel habits GENITOURINARY: No history of dysuria, frequency or incontinence MUSCULOSKELETAL: Negative for joint pain or swelling, back pain or muscle pain. NEUROLOGIC:Negative for focal numbness or weakness, headaches and dizziness or syncope, vision changes, speech/languag changes - EXCEPT that as per HPI above. SKIN:Negative for lesions, rash, and itching. HEMATOLOGIC/LYMPHATIC/IMMUNOLOG IC:Negative for prolonged bleeding, bruising easily or swollen nodes. ENDOCRINE: Negative for cold or heat intolerance, polyuria, polydipsia and goiter. The remainder of the ROS was reviewed and is negative. LAB/IMAGING: Those performed since patient's last visit have been reviewed. WBC (x10-3/uL) Date Value 09/30/2019 9.0 RBC (x10-6/uL) Date Value 09/30/2019 5.06 HEMOGLOBIN (g/dL) Date Value 09/30/2019 15.0 Hematocrit (%) Date Value 09/30/2019 43.8 MCV (fL) Date Value 09/30/2019 86.6 MCH (pg) Date Value 09/30/2019 29.6 MCHC (g/dL) Date Value 09/30/2019 34.2 Platelet Count (x10-3/uL) Date Value 09/30/2019 218 MPV (fL) Date Value 09/30/2019 9.2 BUN (mg/dL) Date Value 09/30/2019 27 (H) Creatinine (mg/dL) Date Value 09/30/2019 1.4 (H) Chloride (mmol/L) Date Value 09/30/2019 103 CO2 (mmol/L) Date Value 09/30/2019 27 Protein, Total (g/dL) Date Value 09/30/2019 7.4 Albumin (g/dL) Date Value 09/30/2019 3.9 Calcium (mg/dL) Date Value 09/30/2019 8.9 Alkaline Phosphatase (IU/L) Date Value 09/30/2019 49 Bilirubin, Total (mg/dL) Date Value 09/30/2019 0.50 AST (IU/L) Date Value 09/30/2019 24 ALT (IU/L) Date Value 09/30/2019 39 MEDICATIONS: carbidopa-levodopa CR (SINEMET CR) 50-200 mg per tablet Take 1 tablet by mouth twice daily. (8AM and 3-4PM) amLODIPine (NORVASC) 5 mg tablet Take 5 mg by mouth once daily. atorvastatin (LIPITOR) 20 mg tablet Take 20 mg by mouth once daily. glimepiride (AMARYL) 4 mg tablet Take 4 mg by mouth twice daily. hydroCHLOROthiazide (HYDRODIURIL, ESIDRIX) 25 mg tablet Take 25 mg by mouth once daily. LANTUS SOLOSTAR U-100 INSULIN 100 unit/mL (3 mL) Inject 36 Units subcutaneously daily at bedtime. losartan (COZAAR) 100 mg tablet Take 100 mg by mouth once daily. metFORMIN ER (GLUCOPHAGE XR) 500 mg 24 hr tablet Take 1,000 mg by mouth twice daily. omeprazole (PRILOSEC) 20 mg capsule Take 20 mg by mouth once daily. sertraline (ZOLOFT) 50 mg tablet Take 50 mg by mouth daily at bedtime. aspirin, enteric coated (ASPIRIN, ENTERIC COATED) 81 mg EC tablet Take 81 mg by mouth once daily. potassium citrate ER (UROCIT-K) 10 mEq (1,080 mg) Take by mouth one time only. melatonin 3 mg tablet Take at 8-9 PM nightly. (Patient not taking: Reported on 08/08/2022) HISTORIES Med Hx: HTN, DM, HLD SOCIAL HISTORY PHYSICAL EXAMINATION Pulse 90 Temp 36.3 C (97.3 F) Resp 16 Wt 122 kg (269 lb) SpO2 96% BMI 38.60 kg/m GENERAL EXAM: General appearance: NAD, pleasant. HEENT: NC/AT, nasal congestion absent, no oral lesions, membranes moist. NECK: ROM nml. Lungs: CTA bilaterally. CV: RRR nl S1, S2. Extr: No cyanosis, clubbing or edema. Skin: Cool to touch. NEUROLOGICAL EXAM: General: Awake, alert, oriented x3 (person,place,time), speech fluent, no dysarthria; comprehension, naming, repetition intact. CN: PERRL, EOMI and without nystagmus, VFF to confrontation, facial sensation and strength are normal and symmetric, hearing is intact, palate and tongue movements are intact and symmetric. SCM and trapezius strength normal. Motor: Bulk nml and strength (5/5) bilaterally (throughout extremities x4). Mild increased tone in RUE. Coordination: FNF, RAYNE, HTS intact. No tremors today. Sensation: Light touch, vibration intact throughout. No evidence of neglect. Gait: Stable with normal stride but decreased arm swing on R. Romberg normal. No retropulsion on pull testing. Assessment and Plan: ASSESSMENT/PLAN: 1. Lightheadedness - ICD9: 780.4, ICD10: R42 (primary diagnosis) - note no definite loc but near syncope once. 2. Shortness of breath - ICD9: 786.05, ICD10: R06.02 New complaints since last visit. ER evaluation as above for at least one episode. Etiology uncertain. At times does note palpitations. Exam unremarkable today. Already scheduled to see pulmonary. Will also perform Zio event monitor to evaluate for possible arrhythmia (palpitations) as a cause as well as ECHO with no prior cardiac workup. If abnormal will refer to cardiology. States PCP aware. 3. Parkinson disease (HCC) - ICD9: 332.0, ICD10: G20 Stable. Overall exam improved since changed to CR dosing twice daily. Will make no changes in meds today given other ongoing conditions. 4. 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 Daytime sleepiness - ICD9: 780.54, ICD10: R40.0 7. Sleep apnea-like behavior - ICD9: 780.59, ICD10: G47.39 Patient no longer taking melatonin. Continues to have delayed sleep pattern but note he is also sleeping during the day as he is always tired . Etiology uncertain but concern for underlying DOLORES which could provoked RBD type behaviors as well. Risk factors include crowded airway and obesity. Discussed with patient and his : the physiology of OSAS, medical conditions associated with OSAS (DM, HTN, CAD, Depression, Stroke, Headache...) and treatment options (UPPP, Dental appliances, CPAP...). Patient not wanting in lab study but willing to have HSAT - ordered. Advised patient to avoid activities that could harm self or others when tired/sleepy, including driving and/or operating heavy machinery. Encouraged weight loss, and continued compliance with other medications. Will hold melatonin for now. Reviewed risks associated with untreated RBD but states would feel to tired during day to take melatonin or other meds used for RBD, all of which would result in increased sedation. Zane Patel MD Follow up after above testing completed or sooner prn. I spent a total of 50 minutes on the date of the service which included preparing to see the patient, [id number] patient care, completing clinical documentation, obtaining and/or reviewing separately obtained history, performing a medically appropriate examination, counseling and educating the patient/family/caregiver, ordering medications, tests, or procedures, and communicating results to the patient/family/caregiver. documented in this encounter [facility] 04-18-2022 Note HNO ID: [id number] Author: Zane Patel Jr., MD Service: ? Author Type: Physician Type: Progress Notes Filed: 04/18/2022 4:50 PM Note Text: ESTABLISHED PATIENT VISIT CHIEF COMPLAINT: HISTORY OF PRESENT ILLNESS: Zane Garnett is a 71 year old male, BMI 38.65 kg/m2 with a PMH significant for and per last office visit of 03/02/22: 1. Parkinson disease (HCC) - ICD9: 332.0, ICD10: G20 Patient with clinical history and exam findings suggestive of Parkinson's disease. 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 Impairments above described as progressive with patient also having reported history of behaviors suggestive of RBD (rare and not needing treatment at this time). Dx d/w pt and his in detail including etiology, physiology, treatment and prognosis. Discussed head imaging and pt states he cannot tolerate an MRI unless sedated with general anesthetic and thus for now, will get CT brain wo contrast to evaluate for vascular causes of symptoms. We will also initiate therapy to see response - trial of Sinemet 25/100mg 1 tab TID with meals. SE and ADRs d/w pt and in detail. Encouraged exercises. Pt will follow up in about 8-12 weeks to determine if response to meds or sooner prn. Pt agrees with plan above. Will request recent labs from PCP re hepatic and renal function but no reported impairment per pt. CT brain per rad report: Post-operative change: None. Acute change: No evidence of an acute infarct or other acute parenchymal process. Hemorrhage: No evidence of acute intracranial hemorrhage. ECASS hemorrhagic transformation score: Not Applicable Mass Lesion / Mass Effect: There is no evidence of an intracranial mass or extraaxial fluid collection. No significant mass effect. Chronic change: Scattered patchy foci of low attenuation are present within supratentorial white matter which is a nonspecific finding but likely represents mild microvascular ischemia. Small chronic lacunar infarct in the right caudate head/body junction. Intracranial calcific atherosclerosis. Parenchyma: There is mild generalized volume loss. The brain parenchyma is otherwise within normal limits for age. Ventricles: Ventricular enlargement concordant with the degree of parenchymal volume loss. Paranasal sinuses and skull base: Mild mucosal thickening in the bilateral ethmoid air cells and left sphenoid sinus retention cyst. Mastoid air cells are essentially clear. The skull base and imaged soft tissues are unremarkable. Club Steward (topogram) images: No additional findings. Patient states he is not noticing a definite difference in symptoms, but noted less tremors. When just sitting not shaking at all now. Tremors more when active. Was taking Sinemet about every 4 hours. [place] a little dopey on it. Staying up later and not falling asleep until 2 AM. Waking at about 9-10AM to start the day. However around 4-5 PM he is taking a nap. Handwriting still getting smaller. Still impaired fine motor tasks. Feels like he had more energy for a while. Perhaps more functioning in the morning hours. No falls. No changes in ambulation. No bladder issues at present. Last dose of carbidopa-levodopa today about 1-115 PM. REVIEW OF SYSTEMS GENERAL:No weight loss, malaise or fevers. HEENT:Negative for frequent or significant headaches, No changes in hearing or vision, no nose bleeds or other nasal problems NECK:Negative for lumps, goiter, pain and significant neck swelling RESPIRATORY: Negative for cough, wheezing or shortness of breath. CARDIOVASCULAR: Negative for chest pain, leg swelling or palpitations. GASTROINTESTINAL: Negative for abdominal discomfort, blood in stools or black stools or change in bowel habits GENITOURINARY: No history of dysuria, frequency or incontinence MUSCULOSKELETAL: Negative for joint pain or swelling, back pain or muscle pain. NEUROLOGIC:Negative for focal numbness or weakness, headaches and dizziness or syncope, vision changes, speech/languag changes - EXCEPT that as per HPI above. SKIN:Negative for lesions, rash, and itching. HEMATOLOGIC/LYMPHATIC/IMMUNOLOG IC:Negative for prolonged bleeding, bruising easily or swollen nodes. ENDOCRINE: Negative for cold or heat intolerance, polyuria, polydipsia and goiter. The remainder of the ROS was reviewed and is negative. LAB/IMAGING: Those performed since patient's last visit have been reviewed. WBC (x10-3/uL) Date Value 09/30/2019 9.0 RBC (x10-6/uL) Date Value 09/30/2019 5.06 HEMOGLOBIN (g/dL) Date Value 09/30/2019 15.0 Hematocrit (%) Date Value 09/30/2019 43.8 MCV (fL) Date Value 09/30/2019 86.6 MCH (pg) Date Value 09/30/2019 29.6 MCHC (g/dL) Date Value 09/30/2019 34.2 Platelet Count (x10-3/uL) Date Value 09/30/2019 218 MPV (fL) Date Value 09/30/2019 9.2 BUN (mg/dL) Date Value 09/30/2019 27 (H) Creatin (more content not included)... [facility] 04-18-2022 History of Presen t illness Narrative ESTABLISHED PATIENT VISIT CHIEF COMPLAINT: HISTORY OF PRESENT ILLNESS: Zane Garnett is a 71 year old male, BMI 38.65 kg/m2 with a PMH significant for and per last office visit of 03/02/22: 1. Parkinson disease (HCC) - ICD9: 332.0, ICD10: G20 Patient with clinical history and exam findings suggestive of Parkinson's disease. 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 Impairments above described as progressive with patient also having reported history of behaviors suggestive of RBD (rare and not needing treatment at this time). Dx d/w pt and his in detail including etiology, physiology, treatment and prognosis. Discussed head imaging and pt states he cannot tolerate an MRI unless sedated with general anesthetic and thus for now, will get CT brain wo contrast to evaluate for vascular causes of symptoms. We will also initiate therapy to see response - trial of Sinemet 25/100mg 1 tab TID with meals. SE and ADRs d/w pt and in detail. Encouraged exercises. Pt will follow up in about 8-12 weeks to determine if response to meds or sooner prn. Pt agrees with plan above. Will request recent labs from PCP re hepatic and renal function but no reported impairment per pt. CT brain per rad report: Post-operative change: None. Acute change: No evidence of an acute infarct or other acute parenchymal process. Hemorrhage: No evidence of acute intracranial hemorrhage. ECASS hemorrhagic transformation score: Not Applicable Mass Lesion / Mass Effect: There is no evidence of an intracranial mass or extraaxial fluid collection. No significant mass effect. Chronic change: Scattered patchy foci of low attenuation are present within supratentorial white matter which is a nonspecific finding but likely represents mild microvascular ischemia. Small chronic lacunar infarct in the right caudate head/body junction. Intracranial calcific atherosclerosis. Parenchyma: There is mild generalized volume loss. The brain parenchyma is otherwise within normal limits for age. Ventricles: Ventricular enlargement concordant with the degree of parenchymal volume loss. Paranasal sinuses and skull base: Mild mucosal thickening in the bilateral ethmoid air cells and left sphenoid sinus retention cyst. Mastoid air cells are essentially clear. The skull base and imaged soft tissues are unremarkable. [place] Steward (topogram) images: No additional findings. Patient states he is not noticing a definite difference in symptoms, but noted less tremors. When just sitting not shaking at all now. Tremors more when active. Was taking Sinemet about every 4 hours. [place] a little dopey on it. Staying up later and not falling asleep until 2 AM. Waking at about 9-10AM to start the day. However around 4-5 PM he is taking a nap. Handwriting still getting smaller. Still impaired fine motor tasks. Feels like he had more energy for a while. Perhaps more functioning in the morning hours. No falls. No changes in ambulation. No bladder issues at present. Last dose of carbidopa-levodopa today about 1-115 PM. REVIEW OF SYSTEMS GENERAL:No weight loss, malaise or fevers. HEENT:Negative for frequent or significant headaches, No changes in hearing or vision, no nose bleeds or other nasal problems NECK:Negative for lumps, goiter, pain and significant neck swelling RESPIRATORY: Negative for cough, wheezing or shortness of breath. CARDIOVASCULAR: Negative for chest pain, leg swelling or palpitations. GASTROINTESTINAL: Negative for abdominal discomfort, blood in stools or black stools or change in bowel habits GENITOURINARY: No history of dysuria, frequency or incontinence MUSCULOSKELETAL: Negative for joint pain or swelling, back pain or muscle pain. NEUROLOGIC:Negative for focal numbness or weakness, headaches and dizziness or syncope, vision changes, speech/languag changes - EXCEPT that as per HPI above. SKIN:Negative for lesions, rash, and itching. HEMATOLOGIC/LYMPHATIC/IMMUNOLOG IC:Negative for prolonged bleeding, bruising easily or swollen nodes. ENDOCRINE: Negative for cold or heat intolerance, polyuria, polydipsia and goiter. The remainder of the ROS was reviewed and is negative. LAB/IMAGING: Those performed since patient's last visit have been reviewed. WBC (x10-3/uL) Date Value 09/30/2019 9.0 RBC (x10-6/uL) Date Value 09/30/2019 5.06 HEMOGLOBIN (g/dL) Date Value 09/30/2019 15.0 Hematocrit (%) Date Value 09/30/2019 43.8 MCV (fL) Date Value 09/30/2019 86.6 MCH (pg) Date Value 09/30/2019 29.6 MCHC (g/dL) Date Value 09/30/2019 34.2 Platelet Count (x10-3/uL) Date Value 09/30/2019 218 MPV (fL) Date Value 09/30/2019 9.2 BUN (mg/dL) Date Value 09/30/2019 27 (H) Creatinine (mg/dL) Date Value 09/30/2019 1.4 (H) Chloride (mmol/L) Date Value 09/30/2019 103 CO2 (mmol/L) Date Value 09/30/2019 27 Protein, Total (g/dL) Date Value 09/30/2019 7.4 Albumin (g/dL) Date Value 09/30/2019 3.9 Calcium (mg/dL) Date Value 09/30/2019 8.9 Alkaline Phosphatase (IU/L) Date Value 09/30/2019 49 Bilirubin, Total (mg/dL) Date Value 09/30/2019 0.50 AST (IU/L) Date Value 09/30/2019 24 ALT (IU/L) Date Value 09/30/2019 39 MEDICATIONS: amLODIPine (NORVASC) 5 mg tablet Take 5 mg by mouth once daily. atorvastatin (LIPITOR) 20 mg tablet Take 20 mg by mouth once daily. glimepiride (AMARYL) 4 mg tablet Take 4 mg by mouth twice daily. hydroCHLOROthiazide (HYDRODIURIL, ESIDRIX) 25 mg tablet Take 25 mg by mouth once daily. LANTUS SOLOSTAR U-100 INSULIN 100 unit/mL (3 mL) Inject 36 Units subcutaneously daily at bedtime. losartan (COZAAR) 100 mg tablet Take 100 mg by mouth once daily. metFORMIN ER (GLUCOPHAGE XR) 500 mg 24 hr tablet Take 1,000 mg by mouth twice daily. omeprazole (PRILOSEC) 20 mg capsule Take 20 mg by mouth once daily. sertraline (ZOLOFT) 50 mg tablet Take 50 mg by mouth daily at bedtime. aspirin, enteric coated (ASPIRIN, ENTERIC COATED) 81 mg EC tablet Take 81 mg by mouth once daily. potassium citrate ER (UROCIT-K) 10 mEq (1,080 mg) Take by mouth one time only. carbidopa-levodopa (SINEMET) 25-100 mg per tablet Take 1 tablet by mouth three times daily. (breakfast/lunch/dinner) HISTORIES PMHX: HTN DM HLD SOCIAL HISTORY No tobacco or ETOH. . PHYSICAL EXAMINATION BP 141/89 Pulse 108 Temp 36.6 C (97.9 F) Resp 18 Wt 122.2 kg (269 lb 6.4 oz) SpO2 96% BMI 38.65 kg/m LAST EXAM: General: Masked facies. Awake, alert, oriented x3 (person,place,time), speech fluent, no dysarthria; comprehension, naming, repetition intact. Fund of knowledge grossly normal. CN: PERRL, fundi with no evidence of papilledema, EOMI and without nystagmus, VFF to confrontation, facial sensation and strength are normal and symmetric, hearing is intact to finger rub bilaterally, palate and tongue movements are intact and symmetric. SCM and trapezius strength normal. Motor: Normal bulk and strength (5/5) bilaterally (throughout extremities x4). Mild cogwheel rigidity in RUE. Reflexes: 1/4 and symmetric, plantar stimulation is flexor. Coordination: FNF HTS intact. RAYNE mildly impaired in isabel UE. Resting tremor evident in L hand with then evidence of a superimposed tremor with posture and activity but not an intention tremor. Sensation: Light touch, vibration intact throughout. No evidence of neglect. Gait: Shuffling over time with decreased RUE swing. No difficulties rising from chair. No retropulsion on pull testing. NEUROLOGICAL EXAM: General: Awake, alert, oriented x3 (person,place,time), speech fluent, no dysarthria; comprehension, naming, repetition intact. Short and skilled nursing memory intact. Fund of knowledge grossly normal by MOCA. CN: PERRL, EOMI and without nystagmus, VFF to confrontation, facial sensation and strength are normal and symmetric, hearing is intact to finger rub bilaterally, palate and tongue movements are intact and symmetric. SCM and trapezius strength normal. Motor: Normal tone, bulk and strength (5/5) bilaterally (throughout extremities x4). Coordination: FNF, HTS intact. RAYNE decreased mildly in LUE. Sensation: Light touch and pin intact throughout. No evidence of neglect. Gait: Stable with normal stride and arm swing. Romberg normal. No retropulsion with pull testing. Assessment and Plan: ASSESSMENT/PLAN: 1. Parkinson disease (HCC) - ICD9: 332.0, ICD10: G20 (primary diagnosis) 2. RBD (REM behavioral disorder) - ICD9: 327.42, ICD10: G47.52 Overall patient's neuro exam improved today since on Sinemet 25/100mg TID with meals, although patient not subjectively noting a significant difference. Uncertain if complaints above a side effect of Sinemet or other. Discussed other options for pt as it appears he is missing the afternoon dose quite often which may be why not noticing the improvement in symptoms. Thus, will change to Sinemet CR 50/200mg twice daily (8AM and 3-4PM) to see if symptoms improve as does med compliance while reducing me side effects. Restarting melatonin for prior RBD symptoms endorsed last visit. 3. 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 Will restart patient on melatonin but lower dose of 3mg nightly to be taken at 9PM with goal bedtime of MN. Goal is to advance sleep onset. Patient will also wake at the same time daily (8AM) which should allow for increase sleep burden and earlier sleep time. Zane Patel MD I spent a total of 40+ minutes on the date of the service which included preparing to see the patient, [id number] patient care, completing clinical documentation, obtaining and/or reviewing separately obtained history, performing a medically appropriate examination, counseling and educating the patient/family/caregiver, ordering medications, tests, or procedures, independently interpreting results (not separately reported), and communicating results to the patient/family/caregiver. documented in this encounter [facility] 03-16-2022 Note HNO ID: [id number] Author: RT Milagros(Julius) Service: ? Author Type: Trommel Tender Type: Progress Notes Filed: 03/16/2022 3:27 PM Note Text: Radiology Service Progress Note PATIENT NAME: Zane Garnett DATE OF SERVICE: March 16, 2022 TIME: 3:27 PM PATIENT IDENTITY VERIFICATION COMPLETED USING TWO (2) IDENTIFIERS: Name and Date of confirmed by patient verbally. FALL SCREENING: Has the patient had 2 falls in the last year or 1 fall with injury or currently using an Ambulatory Assistive Device (Walker, Cane, Wheelchair, Crutches, etc.)? No PATIENT GENDER DATA: Male PATIENT RELEVANT IMPLANT DATA REVIEWED: Yes RADIOLOGY DEPARTMENT: CT; Exam(s) Completed: Brain PERIPHERAL IV DATA: Not applicable SIGNED BY: RT Jarett(R) March 16, 2022 3:27 PM [facility] 03-16-2022 History of Presen t illness Narrative Radiology Service Progress Note PATIENT NAME: Zane Garnett DATE OF SERVICE: March 16, 2022 TIME: 3:27 PM PATIENT IDENTITY VERIFICATION COMPLETED USING TWO (2) IDENTIFIERS: Name and Date of confirmed by patient verbally. FALL SCREENING: Has the patient had 2 falls in the last year or 1 fall with injury or currently using an Ambulatory Assistive Device (Walker, Cane, Wheelchair, Crutches, etc.)? No PATIENT GENDER DATA: Male PATIENT RELEVANT IMPLANT DATA REVIEWED: Yes RADIOLOGY DEPARTMENT: CT; Exam(s) Completed: Brain PERIPHERAL IV DATA: Not applicable SIGNED BY: RT Jarett(R) March 16, 2022 3:27 PM documented in this encounter [facility] 03-02-2022 Note HNO ID: [id number] Author: Zane Patel Jr., MD Service: ? Author Type: Physician Type: Progress Notes Filed: 03/02/2022 9:05 AM Note Text: NEW PATIENT (CONSULT) HISTORY AND PHYSICAL EXAM PRIMARY CARE PHYSICIAN: No primary care provider on file. REASON FOR CONSULT: See below REFERRING PHYSICIAN: No ref. provider found CHIEF COMPLAINT: Tremor, change in personality Consultation requested by No ref. provider found for an opinion regarding chief complaint of Patient presents with: New Patient Evaluation: Referred by Dr Brianna Israel for tremors and other concerns. Patient reports having tremors for the last 2yr+ in his hands notices L>R. Patient reports occasional dizziness and trouble finding his words. Spouse reports personality change, and shuffling his feet. and my final recommendations will be communicated back to the requesting physician by way of shared medical record or letter via [place] mail. HISTORY OF PRESENT ILLNESS: Zane Garnett is a 71 year old male, Ht 177.8 cm (5' 10 ) BMI 38.74 kg/m2 with a PMH significant for that below. States he is here due to a personality change, tremors, shuffling feet. Symptoms really obvious and progressing the past 6 months, but tremors present for years in left hand. No family history of such symptoms including no Parkinson's. +History of acting out dreams ( a few per ). No prior sleep testing. Multiple near falls. Can be dizzy if looking upwards. Difficulties with fine motor tasks. Handwriting is smaller and difficult to read. States decreased smell over time. REVIEW OF SYSTEMS GENERAL:No weight loss, malaise or fevers. HEENT:Negative for frequent or significant headaches, No changes in hearing or vision, no nose bleeds or other nasal problems NECK:Negative for lumps, goiter, pain and significant neck swelling RESPIRATORY: Negative for cough, wheezing or shortness of breath. CARDIOVASCULAR: Negative for chest pain, leg swelling or palpitations. GASTROINTESTINAL: Negative for abdominal discomfort, blood in stools or black stools or change in bowel habits GENITOURINARY: No history of dysuria, frequency or incontinence MUSCULOSKELETAL: Negative for joint pain or swelling, back pain or muscle pain. NEUROLOGIC:See HPI SKIN:Negative for lesions, rash, and itching. HEMATOLOGIC/LYMPHATIC/IMMUNOLOG IC:Negative for prolonged bleeding, bruising easily or swollen nodes. ENDOCRINE: Negative for cold or heat intolerance, polyuria, polydipsia and goiter. The remainder of the ROS was reviewed and is negative. LAB/IMAGING: Reviewed and include: WBC (x10-3/uL) Date Value 09/30/2019 9.0 RBC (x10-6/uL) Date Value 09/30/2019 5.06 HEMOGLOBIN (g/dL) Date Value 09/30/2019 15.0 Hematocrit (%) Date Value 09/30/2019 43.8 MCV (fL) Date Value 09/30/2019 86.6 MCH (pg) Date Value 09/30/2019 29.6 MCHC (g/dL) Date Value 09/30/2019 34.2 Platelet Count (x10-3/uL) Date Value 09/30/2019 218 MPV (fL) Date Value 09/30/2019 9.2 BUN (mg/dL) Date Value 09/30/2019 27 (H) Creatinine (mg/dL) Date Value 09/30/2019 1.4 (H) Chloride (mmol/L) Date Value 09/30/2019 103 CO2 (mmol/L) Date Value 09/30/2019 27 Protein, Total (g/dL) Date Value 09/30/2019 7.4 Albumin (g/dL) Date Value 09/30/2019 3.9 Calcium (mg/dL) Date Value 09/30/2019 8.9 Alkaline Phosphatase (IU/L) Date Value 09/30/2019 49 Bilirubin, Total (mg/dL) Date Value 09/30/2019 0.50 AST (IU/L) Date Value 09/30/2019 24 ALT (IU/L) Date Value 09/30/2019 39 MEDICATIONS: amLODIPine (NORVASC) 5 mg tablet Take 5 mg by mouth once daily. atorvastatin (LIPITOR) 20 mg tablet Take 20 mg by mouth once daily. glimepiride (AMARYL) 4 mg tablet Take 4 mg by mouth twice daily. hydroCHLOROthiazide (HYDRODIURIL, ESIDRIX) 25 mg tablet Take 25 mg by mouth once daily. LANTUS SOLOSTAR U-100 INSULIN 100 unit/mL (3 mL) Inject 36 Units subcutaneously daily at bedtime. losartan (COZAAR) 100 mg tablet Take 100 mg by mouth once daily. metFORMIN ER (GLUCOPHAGE XR) 500 mg 24 hr tablet Take 1,000 mg by mouth twice daily. omeprazole (PRILOSEC) 20 mg capsule Take 20 mg by mouth once daily. sertraline (ZOLOFT) 50 mg tablet Take 50 mg by mouth daily at bedtime. aspirin, enteric coated (ECOTRIN LOW STRENGTH) 81 mg EC tablet Take 81 mg by mouth once daily. potassium citrate ER (UROCIT-K) 10 mEq (1,080 mg) Take by mouth one time only. HISTORIES Past MHx HTN, DM, Hyperlipidemia, 1 kidney FamHx Stroke (sister), ETOH SOCIAL HISTORY No ETOH or Tob use. PHYSICAL EXAMINATION BP 152/78 (BP Site: Left Arm, BP Position: Sitting, BP Cuff Size: Large Adult) Pulse 78 Ht 177.8 cm (5' 10 ) Wt 122.5 kg (270 lb) SpO2 96% BMI 38.74 kg/m? GENERAL EXAM: General appearance: NAD, pleasant. HEENT: NC/AT, nasal congestion absent, no oral lesions, membranes moist. NECK: ROM nml. Lungs: CTA bilaterally CV: RRR nl S1, S2. No (more content not included)... [facility] 03-02-2022 History of Presen t illness Narrative NEW PATIENT (CONSULT) HISTORY AND PHYSICAL EXAM PRIMARY CARE PHYSICIAN: No primary care provider on file. REASON FOR CONSULT: See below REFERRING PHYSICIAN: No ref. provider found CHIEF COMPLAINT: Tremor, change in personality Consultation requested by No ref. provider found for an opinion regarding chief complaint of Patient presents with: New Patient Evaluation: Referred by Dr Brianna Israel for tremors and other concerns. Patient reports having tremors for the last 2yr+ in his hands notices L>R. Patient reports occasional dizziness and trouble finding his words. Spouse reports personality change, and shuffling his feet. and my final recommendations will be communicated back to the requesting physician by way of shared medical record or letter via [place] mail. HISTORY OF PRESENT ILLNESS: Zane Garnett is a 71 year old male, Ht 177.8 cm (5' 10 ) BMI 38.74 kg/m2 with a PMH significant for that below. States he is here due to a personality change, tremors, shuffling feet. Symptoms really obvious and progressing the past 6 months, but tremors present for years in left hand. No family history of such symptoms including no Parkinson's. +History of acting out dreams ( a few per ). No prior sleep testing. Multiple near falls. Can be dizzy if looking upwards. Difficulties with fine motor tasks. Handwriting is smaller and difficult to read. States decreased smell over time. REVIEW OF SYSTEMS GENERAL:No weight loss, malaise or fevers. HEENT:Negative for frequent or significant headaches, No changes in hearing or vision, no nose bleeds or other nasal problems NECK:Negative for lumps, goiter, pain and significant neck swelling RESPIRATORY: Negative for cough, wheezing or shortness of breath. CARDIOVASCULAR: Negative for chest pain, leg swelling or palpitations. GASTROINTESTINAL: Negative for abdominal discomfort, blood in stools or black stools or change in bowel habits GENITOURINARY: No history of dysuria, frequency or incontinence MUSCULOSKELETAL: Negative for joint pain or swelling, back pain or muscle pain. NEUROLOGIC:See HPI SKIN:Negative for lesions, rash, and itching. HEMATOLOGIC/LYMPHATIC/IMMUNOLOG IC:Negative for prolonged bleeding, bruising easily or swollen nodes. ENDOCRINE: Negative for cold or heat intolerance, polyuria, polydipsia and goiter. The remainder of the ROS was reviewed and is negative. LAB/IMAGING: Reviewed and include: WBC (x10-3/uL) Date Value 09/30/2019 9.0 RBC (x10-6/uL) Date Value 09/30/2019 5.06 HEMOGLOBIN (g/dL) Date Value 09/30/2019 15.0 Hematocrit (%) Date Value 09/30/2019 43.8 MCV (fL) Date Value 09/30/2019 86.6 MCH (pg) Date Value 09/30/2019 29.6 MCHC (g/dL) Date Value 09/30/2019 34.2 Platelet Count (x10-3/uL) Date Value 09/30/2019 218 MPV (fL) Date Value 09/30/2019 9.2 BUN (mg/dL) Date Value 09/30/2019 27 (H) Creatinine (mg/dL) Date Value 09/30/2019 1.4 (H) Chloride (mmol/L) Date Value 09/30/2019 103 CO2 (mmol/L) Date Value 09/30/2019 27 Protein, Total (g/dL) Date Value 09/30/2019 7.4 Albumin (g/dL) Date Value 09/30/2019 3.9 Calcium (mg/dL) Date Value 09/30/2019 8.9 Alkaline Phosphatase (IU/L) Date Value 09/30/2019 49 Bilirubin, Total (mg/dL) Date Value 09/30/2019 0.50 AST (IU/L) Date Value 09/30/2019 24 ALT (IU/L) Date Value 09/30/2019 39 MEDICATIONS: amLODIPine (NORVASC) 5 mg tablet Take 5 mg by mouth once daily. atorvastatin (LIPITOR) 20 mg tablet Take 20 mg by mouth once daily. glimepiride (AMARYL) 4 mg tablet Take 4 mg by mouth twice daily. hydroCHLOROthiazide (HYDRODIURIL, ESIDRIX) 25 mg tablet Take 25 mg by mouth once daily. LANTUS SOLOSTAR U-100 INSULIN 100 unit/mL (3 mL) Inject 36 Units subcutaneously daily at bedtime. losartan (COZAAR) 100 mg tablet Take 100 mg by mouth once daily. metFORMIN ER (GLUCOPHAGE XR) 500 mg 24 hr tablet Take 1,000 mg by mouth twice daily. omeprazole (PRILOSEC) 20 mg capsule Take 20 mg by mouth once daily. sertraline (ZOLOFT) 50 mg tablet Take 50 mg by mouth daily at bedtime. aspirin, enteric coated (ECOTRIN LOW STRENGTH) 81 mg EC tablet Take 81 mg by mouth once daily. potassium citrate ER (UROCIT-K) 10 mEq (1,080 mg) Take by mouth one time only. HISTORIES Past MHx HTN, DM, Hyperlipidemia, 1 kidney FamHx Stroke (sister), ETOH SOCIAL HISTORY No ETOH or Tob use. PHYSICAL EXAMINATION BP 152/78 (BP Site: Left Arm, BP Position: Sitting, BP Cuff Size: Large Adult) Pulse 78 Ht 177.8 cm (5' 10 ) Wt 122.5 kg (270 lb) SpO2 96% BMI 38.74 kg/m GENERAL EXAM: General appearance: NAD, pleasant. HEENT: NC/AT, nasal congestion absent, no oral lesions, membranes moist. NECK: ROM nml. Lungs: CTA bilaterally CV: RRR nl S1, S2. No carotid bruits. Extr: No cyanosis, clubbing or edema. Skin: Cool to touch. NEUROLOGICAL EXAM: General: Masked facies. Awake, alert, oriented x3 (person,place,time), speech fluent, no dysarthria; comprehension, naming, repetition intact. Fund of knowledge grossly normal. CN: PERRL, fundi with no evidence of papilledema, EOMI and without nystagmus, VFF to confrontation, facial sensation and strength are normal and symmetric, hearing is intact to finger rub bilaterally, palate and tongue movements are intact and symmetric. SCM and trapezius strength normal. Motor: Normal bulk and strength (5/5) bilaterally (throughout extremities x4). Mild cogwheel rigidity in RUE. Reflexes: 1/4 and symmetric, plantar stimulation is flexor. Coordination: FNF HTS intact. RAYNE mildly impaired in isabel UE. Resting tremor evident in L hand with then evidence of a superimposed tremor with posture and activity but not an intention tremor. Sensation: Light touch, vibration intact throughout. No evidence of neglect. Gait: Shuffling over time with decreased RUE swing. No difficulties rising from chair. No retropulsion on pull testing. Assessment and Plan: ASSESSMENT/PLAN: 1. Parkinson disease (HCC) - ICD9: 332.0, ICD10: G20 Patient with clinical history and exam findings suggestive of Parkinson's disease. 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 Impairments above described as progressive with patient also having reported history of behaviors suggestive of RBD (rare and not needing treatment at this time). Dx d/w pt and his in detail including etiology, physiology, treatment and prognosis. Discussed head imaging and pt states he cannot tolerate an MRI unless sedated with general anesthetic and thus for now, will get CT brain wo contrast to evaluate for vascular causes of symptoms. We will also initiate therapy to see response - trial of Sinemet 25/100mg 1 tab TID with meals. SE and ADRs d/w pt and in detail. Encouraged exercises. Pt will follow up in about 8-12 weeks to determine if response to meds or sooner prn. Pt agrees with plan above. Will request recent labs from PCP re hepatic and renal function but no reported impairment per pt. Zane Patel MD I spent a total of 50 minutes on the date of the service which included preparing to see the patient, [id number] patient care, completing clinical documentation, obtaining and/or reviewing separately obtained history, performing a medically appropriate examination, counseling and educating the patient/family/caregiver, and ordering medications, tests, or procedures. documented in this encounter [facility] 03-02-2022 Nurse Note Your blood pressure was 152/78. Please contact your primary care doctor to have your blood pressure checked. 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, delayed sleep phase type Daytime sleepiness Sleep apnea-like behavior Class 2 obesity with body mass index (BMI) of 38.0 to 38.9 in adult, unspecified obesity type, unspecified whether serious comorbidity present [E66.9, Z68.38 (ICD-10-CM)] [facility] Diagnosis Obstructive sleep apnea (adult) (pediatric)- Primary [facility]* Diagnosis SOB (shortness of breath)- Primary Shortness of breath Class 2 obesity due to excess calories with body mass index (BMI) of 39.0 to 39.9 in adult, unspecified whether serious comorbidity present [facility] Diagnosis SOB (shortness of breath) Shortness of breath [facility]* Diagnosis SOB (shortness of breath) Shortness of breath [facility]* Diagnosis Obstructive sleep apnea (adult) (pediatric)- Primary RBD (REM behavioral disorder) REM sleep behavior disorder Parkinson's disease without dyskinesia, unspecified whether manifestations fluctuate [facility] Diagnosis Parkinson disease Paralysis agitans [facility] Outpatient Procedure (Routine) - Pending Review Specialty Diagnoses / Procedures Referred By Contashleigh t Referred To Contact [facility] Diagnoses Lightheadedness Shortness of breath Procedures ECHO ECHO TTHRC R-T 2D W/WOM-MODE COMPL SPEC&COLR D Zane Patel Jr., MD [address] [facility] [address] [place] [address] [place] [id number] Referral ID Status Reason Start Date Expiration Date Visits Requested Visits Authorized [id number] Pending Review Auto-Generat ed Referral 08/08/2022 08/08/2023 1 1 * Diagnostic Procedure Only (Routine) - Pending Review Specialty Diagnoses / Procedures [facility] Diagnoses Daytime sleepiness Sleep apnea-like behavior Procedures HOME SLEEP APNEA TEST (HSAT) SLEEP STD AIRFLOW HRT RATE&O2 SAT EFFORT UNATT Zane Patel Jr., MD [address] [address] [address] Referral ID Status Reason Start Date Expiration Date Visits Requested Visits Authorized [id number] Pending Review Auto-Generat ed Referral 08/08/2022 08/08/2023 1 1 [facility] for [facility] (narrative)* Outpatient Procedure (Routine) - Authorized Specialty Diagnoses / Procedures [facility] To [facility] Diagnoses SOB (shortness of breath) Procedures NITRIC OXIDE, EXHALED NITRIC OXIDE GAS DETERMINATION Celine Husain MD [address] [place] [address] [facility] [place] [address] [place] [address] Referral ID Status Reason Start Date Expiration Date Visits Requested Visits Authorized [id number] Authorized Auto-Generat ed Referral 10/10/2022 11/09/2023 1 1 * Outpatient Procedure (Routine) - Authorized Specialty Diagnoses / Procedures Referred By Contac t Referred To Contact [facility] Diagnoses SOB (shortness of breath) Procedures SPIROMETRY WITH DILATOR IF OBSTRUCTED BRNCDILAT RSPSE SPMTRY PRE&POST-BRNCDILAT Celine Sims MD [address] [place] [address] [facility] [place] [address] [place] [address] Referral ID Status Reason Start Date Expiration Date Visits Requested Visits Authorized [id number] Authorized Auto-Generat ed Referral 10/10/2022 11/09/2023 1 1 [facility] Reason for Referral Specialty Diagnoses / Procedures Referred By Contac t Referred To Contact CT IMAGING Diagnoses Parkinson disease (HCC) Procedures CT BRAIN WO IVCON CT HEAD/BRAIN W/O CONTRAST MATERIAL Zane Patel Jr., MD [employer] [facility] [address] [place] [address] Ct Imaging Referral ID Status Reason Start Date Expiration Date Visits Requested Visits Authorized [id number] Authorized Auto-Generat ed Referral 03/02/2022 04/01/2023 1 1 Specialty Diagnoses / Procedures Referred By Contac t Referred To Contact CT IMAGING Diagnoses Parkinson disease Procedures CT BRAIN WO IVCON CT HEAD/BRAIN W/O CONTRAST MATERIAL Zane Patel Jr., MD [address] [facility] [address] [place] [address] [place] [address] Referral ID Status Reason Start Date Expiration Date V isits Requested Visits Authorized [id number] Closed Auto-Generate d Referral 03/02/2022 04/01/2023 1 1 Summary Purpose Family History No Family History Records Found Advance Directives No Advanced Directives Records Found Additional Source Comments Source Comments (unrecognize d section and content) In the event this informatio n is protected by the Federal Confidentiality of Alcohol and Drug Abuse Patient Records regulations: The Federal rules restrict any use of the information to criminally investigate or prosecute any alcohol or drug abuse patient.[facility] HospitalIn the event this information is protected by the Federal Confidentiality of Alcohol and Drug Abuse Patient Records regulations: The Federal rules restrict any use of the information to criminally investigate or prosecute any alcohol or drug abuse patient.[facility] HospitalIn the event this information is protected by the Federal Confidentiality of Alcohol and Drug Abuse Patient Records regulations: The Federal rules restrict any use of the information to criminally investigate or prosecute any alcohol or drug abuse patient.[facility] HospitalIn the event this information is protected by the Federal Confidentiality of Alcohol and Drug Abuse Patient Records regulations: The Federal rules restrict any use of the information to criminally investigate or prosecute any alcohol or drug abuse patient.[facility] HospitalIn the event this information is protected by the Federal Confidentiality of Alcohol and Drug Abuse Patient Records regulations: The Federal rules restrict any use of the information to criminally investigate or prosecute any alcohol or drug abuse patient.[facility] HospitalIn the event this information is protected by the Federal Confidentiality of Alcohol and Drug Abuse Patient Records regulations: The Federal rules restrict any use of the information to criminally investigate or prosecute any alcohol or drug abuse patient.[facility] HospitalIn the event this information is protected by the Federal Confidentiality of Alcohol and Drug Abuse Patient Records regulations: The Federal rules restrict any use of the information to criminally investigate or prosecute any alcohol or drug abuse patient.[facility] HospitalIn the event this information is protected by the Federal Confidentiality of Alcohol and Drug Abuse Patient Records regulations: The Federal rules restrict any use of the information to criminally investigate or prosecute any alcohol or drug abuse patient.[facility] HospitalIn the event this information is protected by the Federal Confidentiality of Alcohol and Drug Abuse Patient Records regulations: The Federal rules restrict any use of the information to criminally investigate or prosecute any alcohol or drug abuse patient.[facility] HospitalIn the event this information is protected by the Federal Confidentiality of Alcohol and Drug Abuse Patient Records regulations: The Federal rules restrict any use of the information to criminally investigate or prosecute any alcohol or drug abuse patient.[facility] HospitalIn the event this information is protected by the Federal Confidentiality of Alcohol and Drug Abuse Patient Records regulations: The Federal rules restrict any use of the information to criminally investigate or prosecute any alcohol or drug abuse patient.[facility] HospitalIn the event this information is protected by the Federal Confidentiality of Alcohol and Drug Abuse Patient Records regulations: The Federal rules restrict any use of the information to criminally investigate or prosecute any alcohol or drug abuse patient.[facility] Reason for Visit (unrecogniz ed section and content) Reason Comments Follow Up 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 Reason Comments Shortness of Breath Reason Comments Spirometry Specialty Diagnoses / Procedures Referred By Contac t Referred To [facility] Diagnoses SOB (shortness of breath) Procedures SPIROMETRY WITH DILATOR IF OBSTRUCTED BRNCDILAT RSPSE SPMTRY PRE&POST-BRNCDILAT ADMN Celine Husain MD [address] [place] [address] [place] [address] Referral ID Status Reason Start Date Expiration Date V isits Requested Visits Authorized [id number] Closed Auto-Generate d Referral 10/10/2022 11/09/2023 1 1 Specialty Diagnoses / Procedures Referred By Contac t Referred To [facility] Diagnoses SOB (shortness of breath) Procedures NITRIC OXIDE, EXHALED NITRIC OXIDE GAS DETERMINATION Celine Husain MD [address] [place] [address] [place] [address] Referral ID Status Reason Start Date Expiration Date V isits Requested Visits Authorized [id number] Closed Auto-Generate d Referral 10/10/2022 11/09/2023 1 1 Reason Comments Medication Problem Reason Comments Radiology CT Specialty Diagnoses / Procedures [facility] Diagnoses Parkinson disease Procedures CT BRAIN WO IVCON CT HEAD/BRAIN W/O CONTRAST MATERIAL Zane Patel Jr., MD [address] [facility] [address] [place] [address] [address] Imaging [id number] Referral ID Status Reason Start Date Expiration Date V isits Requested Visits Authorized [id number] Closed Auto-Generate d Referral 03/02/2022 04/01/2023 1 1 Care Teams (unrecognized sec tion and content) Recordist Relationship Specialty Start Date End Date Brianna Israel MD [address] [place] [address] PCP - General Family Medicine 08/09/22 Recordist Relationship Specialty Start Date End Date Brianna Israel MD [address] [place] [address] PCP - General Family Medicine 08/09/22 Recordist Relationship Specialty Start Date End Date Brianna Israel MD [address] [place] [address] PCP - [facility] Medicine 08/09/22 Recordist Relationship Specialty Start Date End Date Brianna Israel MD [address] [place] [address] PCP - General [facility] Medicine 08/09/22 Recordist Relationship Specialty Start Date End Date Brianna Israel MD [address] [place] [address] PCP - [facility] Medicine 08/09/22 Recordist Relationship Specialty Start Date End Date Brianna Israel MD [address] [place] [address] PCP - General Family Medicine 08/09/22 (unrecognized sect ion and content) No Status Records Found INFORMATION SOURCE (unrecogn ized section and content) FOR RECORDS PERTAINING TO PATIENTS WHO ARE OR HAVE BEEN ENROLLED IN A CHEMICAL DEPENDENCY/SUBSTANCEABUSE PROGRAM, SOME INFORMATION MAY BE OMITTED. This clinical summary was aggregated from multiple sources. Caution should be exercised in using it in the provision of clinical care. This summary normalizes information from multiple sources, and as a consequence, information in this document may materially change the coding, format and clinical context of patient data. In addition, data may be omitted in some cases. CLINICAL DECISIONS SHOULD BE BASED ON THE PRIMARY CLINICAL RECORDS. [facility] [employer] [facility]. provides no warranty or guarantee of the accuracy or completeness of information in this document.
[2023-03-09 11:44] LABS: AST(SGOT) 17 U/L (15-37); Alanine Aminotransfer ALT/SGPT 17 U/L (16-61); Cholesterol 153 mg/dL (200); High Density Lipoprotein 39 mg/dL; Triglycerides 333 mg/dL; Very Low Density Lipoprotein 67 mg/dL (5-40)
== END | disposition home or self-care (01) ==
LOC: LAB 09:25
PROVIDERS: PCP Family Medicine; Referring Provider Internal Medicine Cardiovascular Disease; Visit Provider Internal Medicine Cardiovascular Disease
DX: I25.10 Atherosclerotic heart disease of native coronary artery without angina pectoris (principal); E78.5 Hyperlipidemia, unspecified; I10 Essential (primary) hypertension
CPT/HCPCS: 36415; 80061; 84450; 84460

== ENCOUNTER → 2023-09-11 | Outpatient (CLI) | payer MEDICARE, SELFPAY ==
[2023-09-11 11:02] LABS: ALB/GLOB Ratio 1.1 RATIO (0.9-2.4); AST(SGOT) 17 U/L (15-37); Alanine Aminotransfer ALT/SGPT 15 U/L (16-61); Albumin, Serum 3.7 g/dL (3.2-5.0); Alkaline Phosphatase 57 U/L (45-117); Anion Gap 8 (5-15); BUN 25 mg/dL (7-18); BUN/Creat Ratio 19.1 RATIO (10-20); Calcium,Total 9.2 mg/dL (8.5-10.1); Chloride 102 mmol/L (98-107); Cholesterol 132 mg/dL (200); Creatinine, Serum 1.31 mg/dL (0.70-1.30); EST Glomerular Filtration Rate 57 mL/min (>60); Est Glom Filt Rate - Afr Amer 69 mL/min (>60); Globulin 3.3 g/dL (2.2-4.2); Glucose 107 mg/dL (74-106); High Density Lipoprotein 42 mg/dL; Potassium 3.7 mmol/L (3.5-5.1); Sodium Level 137 mmol/L (136-145); Triglycerides 207 mg/dL; Very Low Density Lipoprotein 41 mg/dL (5-40)
== END | disposition home or self-care (01) ==
PROVIDERS: PCP Family Medicine; Referring Provider Internal Medicine Cardiovascular Disease; Visit Provider Internal Medicine Cardiovascular Disease
DX: E11.9 Type 2 diabetes mellitus without complications (principal); G20.A1 Parkinson's disease without dyskinesia, without mention of fluctuations; E78.5 Hyperlipidemia, unspecified; I25.10 Atherosclerotic heart disease of native coronary artery without angina pectoris; R00.2 Palpitations; R06.09 Other forms of dyspnea; R42 Dizziness and giddiness
CPT/HCPCS: 36415; 80053; 80061

== ENCOUNTER 2024-05-28 10:30 | Outpatient (RCR) | payer MEDICARE, SELFPAY ==
--- NOTE | 2024-04-30 14:01 | HP.PTEVAL ---
Patient's Visit Information Visit Information Visit Information: ZANE GARNETT is a 73 year old M referred to Physical Therapy by Dr. Zane Patel MD with a diagnosis of PD/abnormality of gait. Date of Evaluation: 04/30/24 Physical Therapist: JOSE M Mccormick Visit Plan Frequency: 2x /Week Duration: 2 Months Plan: 2X/ week for 8 weeks to start working on balance starting with standing static and progressing to dynamic on and off blue foam, functional balance, gait training (increase stride length, heel to toe gait pattern), head and eyes move together vestibular input with HEP. Can also work on postural strength, dual tasking with HEP HEP: seated opp arm and leg Subjective Subjective: Pt was Dx with PD [address] Patel wants him to come to PT as he has trouble with walking and balance. He does get dizzy. He has trouble with overall moving. He does not recall any stiffness or freezing episodes. He does have some LBP. He has had problems with his back and neck for 50 years. He can roll over in bed but it is a struggle at times. Sit to stand: harder to get up from a soft chair. He struggles with scooting in a bowden. He struggle with getting in and out of a car. He does not have any leg weakness. He does have B knee issues but gets a shot every often. He does have a torn meniscus in just the R year for 5-6 years and pain comes and goes. Stairs: he avoids them. He has to to take his time and feels unsteady on the stairs and uses the railing heavy. It is hard to get his leg up and over to get into a picnic table. He has a few falls. For example he bent down to get something and fell Fw and has helped more than once. He also trips on his feet at times. He has a cane to keep people away from him. Afraid of little kids knocking him over etc, winter time with the snow. He feels that he is at a pretty state right now. He got a bike and was doing that for 20 min a day and then his neck started to have pain down his arm. Sleeps a lot. Hard to get motiviated to do things. Objective Objective: Gait: walks with increase veering and shorter wider stride. Pt does not swing his R arm. Pt is able to heel and toe raise using 1 UE support with decrease ROM of B feet. LE MMT: B hip flex, Knee ext, knee flex 4+/5 FGA: 6 Dual tasking: able to do X 10 on each side in a row without messing up Dual tasking in standing: X 6 in a row and then reverted back to same side. Sit to stand: Needs to use UE to get up out of a chair 30 sec sit to stand: 10 Pt is not able to stand more than 5 seconds with EC and CGA/Min A without losing his balance Pt has increase unsteadiness and dizziness with standing and turning his head. IF walking the pt has to stop to turn his head. Pt had increase dizziness with sitting and moving head and eyes R and L Balance/Special Test Scores Functional Gait Assessment Score: 6 % Disability: 80.0000 Lower Extremity Functional Score: 39 Goals Goal 1:: I HEP Goal Time Frame: 8-12 Weeks Goal 2:: Increase balance (FGA was 6 at [facility]) Goal Time Frame: 8-12 Weeks Goal 3:: Increase static balance to be able to stand X 30 sec with EC without needing assistance to help with LOB and standing on blue foam with EC X 30 seconds with CGA Goal Time Frame: 8-12 Weeks Goal 4:: Be able to walk with occ horizontal head turns length of PT dept with CGA with no veering and no dizziness Goal Time Frame: 8-12 Weeks Goal 5:: Observe a PD class Goal Time Frame: 8-12 Weeks Rehabilitation Potential Rehabilitation Potential: Good Anticipated Interventions Patient/Client Instruction: Educate patient on: Condition and Plan of Care For the Purpose of:: To increase ROM, To improve nutrient delivery to tissue, To improve muscle performance and motor function, To improve ability to perform ADL's, To increase tolerance to activity/condition/position, To improve performance and independence with ADL's, To decrease level of supervision to perform tasks, To improve ability of physical actions for home/community/work/leisure, To improve gait and locomotor functions, To improve health of tissue, To decrease soft tissue restriction, To increase flexibility/ROM, To improve endurance, To improve balance, To improve safety with gait and To assume or resume ADL's Therapeutic Exercise to Include: Strength training, Endurance training, Balance training, Body mechanics, Postural training, Flexibilty training, Gait and locomotor training, Neuromotor development, Active ROM and Dynamic Lumbar Stabilization For the Purpose of:: To decrease pain, To increase ROM, To improve nutrient delivery to tissue, To increase oxygenation perfusion, To improve muscle performance and motor function, To improve ability to perform ADL's, To increase tolerance to activity/condition/position, To improve performance and independence with ADL's, To decrease level of supervision to perform tasks, To improve ability of physical actions for home/community/work/leisure, To improve gait and locomotor functions, To improve health of tissue, To decrease soft tissue restriction, To increase flexibility/ROM, To improve endurance, To improve balance and To improve safety with gait Functional Training to Include: Gait training For the Purpose of:: To improve ability of physical actions for home/community/work/leisure, To improve gait and locomotor functions, To improve balance and To improve safety with gait Text: Thank you for the opportunity to evaluate your patient. For Medicare and Medicare HMO plans, please review the plan of care and approve it. It will need to be FAXED BACK to us at [phone] for Medicare purposes. For Medicare only, by signing this I certify the plan of care. Please let me know if there are questions or concerns regarding this plan of care. Physician Signature: Date:
--- NOTE | 2024-05-28 12:33 | HP.PTDCSUM ---
Discharge Summary D/C summary: It has been my pleasure to treat ZANE GARNETT referred by Dr. Zane Patel MD, with the diagnosis of PD/abnormality of gait for a total of 9 visit(s). Discharge Date: 05/28/24 Please see the following information for a summary of their discharge status. Subjective Subjective: Pt reports that he is walking better and his Dr agrees and also agrees that he is moving his arms more with walking. They changed meds and he is not as tired during the day. Overall Improvement % Improvement: 50 Objective Objective/Function: Standing with EC X 30 seconds with CGA with no LOB Standing with EOX 30 seconds on foam with CGA with no LOB FGA (improved) 17 Gait: walks with no AD with slightly decreased stride length, arm swing Goals Goal 1:: I HEP Goal 2:: Increase balance (FGA was 6 at eval) Goal Progress: Goal Met Goal 3:: Increase static balance to be able to stand X 30 sec with EC without needing assistance to help with LOB and standing on blue foam with EC X 30 seconds with CGA Goal Progress: Goal Met Goal 4:: Be able to walk with occ horizontal head turns length of PT dept with CGA with no veering and no dizziness Goal Progress: Progressing Goal 5:: Observe a PD class Plan Plan: DC PT. Recommend pt to try PD noon class Bike 20 min a day Pt admits that motivation is an issue D/C Information Discharge Comments: DC PT at this time to possible PD class. Cost of PT to high to continue d/c sentence: If there are questions or concerns regarding this patient's physical therapy, please feel free to call me at [phone]. Thank you for the referral of this patient. Sincerely, Nohemy Kapadia, MPT Balance/Gait/Functional tests Balance/Special Test Scores Functional Gait Assessment Score: 17 % Disability: 43.3400 Lower Extremity Functional Score: 50 Improvement % Improvement: 50
== END 2024-05-28 12:50 | disposition home or self-care (01) ==
LOC: PT 10:30
PROVIDERS: PCP Family Medicine; Referring Provider Psychiatry & Neurology Sleep Medicine; Visit Provider Psychiatry & Neurology Sleep Medicine
DX: G20.A1 Parkinson's disease without dyskinesia, without mention of fluctuations (principal); R26.9 Unspecified abnormalities of gait and mobility
CPT/HCPCS: 97110; 97162; 97530

== ENCOUNTER → 2024-08-22 | Outpatient (CLI) | payer MEDICARE, SELFPAY ==
[2024-08-22 10:30] LABS: Hematocrit 40.3 % (40-54); Hemoglobin 13.3 g/dL (13.0-16.5); Immature Granulocytes Count 0.050 X10^3/uL (0.0-0.0); Mean Corp Hgb Conc 33.0 g/dL (32-36); Mean Corpuscular Volume 87.8 fL (80-94); Mean Platelet Vol. 9.6 fl (6.2-12.0); NRBC Flagged by Analyzer 0 % (0-5); Platelet Count 238 K/mm3 (150-450); RBC Distribution Width CV 13.9 % (11.6-14.6); RBC Distribution Width SD 44.8 fl (35.1-43.9); Red Blood Count 4.59 M/mm3 (4.6-6.2); White Blood Count 7.8 K/mm3 (4.4-11.0)
[2024-08-22 11:30] LABS: Creatinine, Urine (random) 189.00 mg/dL (39.00-259.00)
[2024-08-22 11:31] LABS: Microalbumin,Random Urine 35.5 mg/L (NO RANGE EST.)
[2024-08-22 11:45] LABS: AST(SGOT) 25 U/L (<=37); Alanine Aminotransfer ALT/SGPT 7 U/L (<=46); Albumin, Serum 4.1 g/dL (3.4-4.8); Alkaline Phosphatase 53 U/L (40-129); Anion Gap 14 (5-15); BUN 19 mg/dL (4-19); BUN/Creat Ratio 13.4 RATIO (10-20); Calcium,Total 9.2 mg/dL (7.6-11.0); Carbon Dioxide 25.7 mmol/L (21.0-32.0); Chloride 100 mmol/L (98-108); Cholesterol 142 mg/dL (<=200); Globulin 2.6 g/dL (2.2-4.2); Glucose 97 mg/dL (70-99); Low Density Lipoprotein Calc. 61 mg/dL; Magnesium 1.5 mg/dL (1.5-2.2); Potassium 3.4 mmol/L (3.3-5.1); Triglycerides 246 mg/dL; Very Low Density Lipoprotein 49 mg/dL (5-40); cholesterol:hdl ratio screen 4.51
[2024-08-22 11:46] LABS: PSA,Total- Diagnostic 1.71 ng/mL (0.00-4.00); Vitamin B12 < 150 pg/mL (180-914)
== END | disposition home or self-care (01) ==
LOC: MTLAB 08:32
PROVIDERS: PCP Family Medicine; Referring Provider Student in an Organized Health Care Education/Training Program; Visit Provider Family Medicine
DX: E11.22 Type 2 diabetes mellitus with diabetic chronic kidney disease (principal); G20.B1 Parkinson's disease with dyskinesia, without mention of fluctuations; N18.31 Chronic kidney disease, stage 3a; I12.9 Hypertensive chronic kidney disease with stage 1 through stage 4 chronic kidney disease, or unspecified chronic kidney disease; M17.9 Osteoarthritis of knee, unspecified; E53.8 Deficiency of other specified B group vitamins; R00.2 Palpitations; E78.5 Hyperlipidemia, unspecified
CPT/HCPCS: 80053; 80061; 82043; 82570; 82607; 83735; 84153; 84443; 85025